=== PATIENT | female | born 1960 | race Caucasian/White ===

== ENCOUNTER → 2016-10-27 | Outpatient (CLI) | payer BC ==
[~2016-10-27] MED LIST: HYDR-5688 PO; METF-384 PO; NAPR-1169 PO
== END | disposition home or self-care (01) ==
LOC: C.MAMM 15:16
PROVIDERS: ATTEND Internal Medicine Endocrinology, Diabetes & Metabolism
DX: E11.9 Type 2 diabetes mellitus without complications (principal); R29.890 Loss of height; T14.8 Other injury of unspecified body region; X58.XXXA Exposure to other specified factors, initial encounter; Z78.0 Asymptomatic menopausal state; Z87.891 Personal history of nicotine dependence

== ENCOUNTER → 2016-11-01 | Outpatient (CLI) | payer BC ==
[2016-11-01 11:27] LABS: CHOLESTEROL/HDL RATIO 3.2; THYROID STIMULATING HORMONE 2.04 uIu/ml (0.300-4.500)
--- NOTE | 2016-11-06 06:41 | CODING QUERY MEDICAL NECESSITY ---
SUPPORTING DIAGNOSIS NEEDED A supporting diagnosis is required for the test/procedure performed on this patient in order for us to be reimbursed by the patient's insurance. Please provide a supporting diagnosis for the following test/procedure listed below next to the test name along with your signature. *If there is no additional diagnosis for this patient that would support the following test/procedure please document that below next to the test/procedure. Test(s)/Procedure(s) that require a supporting diagnosis: * VITAMIN D, 25- HYDROXY DIAGNOSIS: Provider Signature: Date: Thank you Danielle Drake [employer] Once completed, please kindly fax back to [phone] For questions please call [phone]
== END | disposition home or self-care (01) ==
LOC: C.LAB 09:03
PROVIDERS: ATTEND Internal Medicine Endocrinology, Diabetes & Metabolism
DX: E11.9 Type 2 diabetes mellitus without complications (principal); T14.8 Other injury of unspecified body region; X58.XXXA Exposure to other specified factors, initial encounter; E55.9 Vitamin D deficiency, unspecified

== ENCOUNTER 2021-08-11 10:54 | Inpatient (IN) ==
[2021-08-11] MEDS ORDERED: MoRPHine SULFATE 4 MG/ML 1 ML CARP\\VIAL IV PRN (11:15)
[2021-08-11] MEDS ORDERED: SODIUM CHLORIDE 0.9% 1000ML 1,000 ML IV STA (11:15)
[2021-08-11] MEDS ORDERED: ONDANSETRON INJ 2 MG/ML 2 ML VIAL IV STA ×2 (11:15→14:11)
--- NOTE | 2021-08-11 11:23 | Emergency Department Note ---
Impression & Plan Large bowel obstruction, Abdominal pain, Vomiting ED Provider Note NAME: MIESHA ARRINGTON AGE: 61 SEX: F : 1960 ARRIVES VIA: Walk-In INFORMANT: Patient, ED PROVIDER(S): Bj Vale DO CHIEF COMPLAINT: Nausea vomiting HPI: The patient is a 61-year-old female who presented to emergency department for evaluation of abdominal pain nausea vomiting and loose bowel movements. The patient states she has noticed epigastric pain as well as reflux over the course the last 24 hours. This morning she started noticing lower abdominal pain as well as nausea vomiting. She has a history of cholecystectomy as well as appendectomy. She is never had a history of bowel obstruction. She notices no lower GI bleeding. She notices no black stools. She notices no hematemesis. She denies having any chest pain at this time. She states she felt very cold and diaphoretic when the episode occurred. She states she continues to have very severe nausea. Symptoms were worsened with trying to eat or drink. ROS: See above HPI for pertinent positives & negatives. A total of 10 systems reviewed and were otherwise negative. PAST MEDICAL HISTORY: See Below PAST SURGICAL HISTORY: See Below FAMILY HISTORY: See Below SOCIAL HISTORY: See Below HOME MEDICATIONS: See Below ALLERGIES: See Below VITALS: See Below PHYSICAL EXAMINATION: GENERAL: Patient is awake and alert. The patient is somewhat anxious appearing. EYES: The conjunctivae are clear. The pupils are round and reactive. EARS, NOSE, MOUTH AND THROAT: The nose is without any evidence of any deformity. NECK: The neck is nontender and supple. RESPIRATORY: Normal respiratory effort is noted there is no evidence of wheezing rhonchi or rales CARDIOVASCULAR: Regular rate and rhythm noted there no murmurs rubs or gallops normal S1 normal S2. GASTROINTESTINAL: Abdomen is mildly distended. There is diffuse tenderness to palpation especially in the lower abdomen. There is no guarding rigidity. MUSCULOSKELETAL/EXTREMITIES: There is no evidence of gross deformity full range of motion is noted in the hips and shoulders. SKIN: There is no obvious evidence of any rash. There are no petechiae, pallor or cyanosis noted. NEUROLOGIC: Patient is awake alert and oriented x3 strength is symmetric patellar reflexes are 2+ bilaterally MEDICAL DECISION MAKING: The patient is a 61-year-old female who presented to the emergency department for an evaluation of lower abdominal pain and vomiting. The patient did have significant abdominal tenderness on physical exam. She also had very intractable nausea and vomiting initially. She was treated with multiple doses of antiemetics. Ultimately she had an NG tube placed which significantly improved her symptoms. I discussed the patient's laboratory and radiographic studies with her. I also discussed her case with the on-call [facility] hospitalist as well as the on-call radiation therapy technician. At this time the patient may require further work-up such as colonoscopy. She does not appear to have a closed loop obstruction on CT. She was treated with IV antibiotics and IV fluids as well. Triage Nursing notes reviewed. Prior medical records reviewed Vital Signs: reviewed and remarkable for hypertension and tachycardia. Differential diagnosis: Gastroenteritis, food borne illness, infections, appendicitis, diverticulitis, inflammatory bowel disease, obstruction, GI bleed, biliary pathology, volvulus, as well as other pathologies. ER treatment provided: See below Diagnostics interpreted by me: ECG: EKG was obtained in the emergency department. My interpretation is normal sinus rhythm at 87 bpm. There is no ectopy. There is no acute ST segment abnormalities noted. This was compared to a tracing from April 012020. No changes were noted. Cardiac Monitoring: An order was placed for continuous cardiac monitoring. The monitor shows a rate of 105 bpm with sinus tachycardia. Laboratory studies: As stated above and show below. Imaging studies: See below Consultation(s): I discussed this case with Dr. Duron [facility] He will evaluate the patient in the emergency department. I discussed this case with Dr. Flood who is on for gastroenterology. He does recommend that we insert an NG tube and continue to monitor the patient. She would likely require colonoscopy in the near future. He also recommends consultation with general surgery. Past Med/Surg History Medical History Acid reflux Chronic back pain Depression DM type 2 (diabetes mellitus, type 2) IDDM History of hypertension PONV (postoperative nausea and vomiting) Slow to wake up after anesthesia Thyroid nodule Surgical History History of arthroscopy of left knee History of carpal tunnel syndrome History of colonoscopy History of dilatation and curettage History of knee replacement Rt History of removal of cyst History of tubal ligation Status post rotator cuff repair Family History Aunt Breast cancer Father Colorectal cancer patient thinks that the cancer may have been small bowel in location? 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 Beliefs That Will Affect Care: None marital status: Current Living Situation: Spouse and Family current occupational status: unemployed Feels Safe at Home: Yes Childhood Exposure to Second-Hand Smoke: Yes caffeine: No Dental Care, Regularly: No Physical Activity Frequency: Does not Exercise Seatbelt Use: always Sunscreen Use: Yes Allergies Allergies Allergy/AdvReac Type Severity Reaction Status Date / Time No Known Allergies Allergy Unknown Verified 08/11/21 13:42 Home Meds Home Medications Medication Instructions Recorded Confirmed aspirin 81 mg chewable tablet 1 tab PO HS tab 05/09/19 08/11/21 atorvastatin 10 mg tablet 10 mg PO HS 08/11/21 08/11/21 cholecalciferol (vitamin D3) 25 25 mcg PO QAM 08/11/21 08/11/21 mcg (1,000 unit) chewable tablet (Vitamin D3) hydrochlorothiazide 25 mg tablet 25 mg PO QAM 08/11/21 08/11/21 insulin lispro 100 unit/mL See Rx Instructions .ROUTE .COMPLEX 08/11/21 08/11/21 subcutaneous pen losartan 25 mg tablet 25 mg PO QAM 08/11/21 08/11/21 pantoprazole 40 mg tablet,delayed 40 mg PO QAM 08/11/21 08/11/21 release (Protonix) Previous Rx's Medication Instructions Recorded lancets 33 gauge (OneTouch Delica #100 ea 07/06/19 Lancets) blood sugar diagnostic (OneTouch #100 ea 04/09/21 Ultra Blue Test Strip) blood-glucose meter (OneTouch #1 ea 04/09/21 Ultra2 Meter) lancets 30 gauge (OneTouch Delica #100 ea 04/09/21 Plus Lancet) pen needle, diabetic 31 gauge x #100 ea 07/01/21 5/16" (BD Ultra-Fine Short Pen Needle) dulaglutide 0.75 mg/0.5 mL 0.75 mg SUBCUT WK #2 ml 07/19/21 subcutaneous pen injector insulin glargine 100 unit/mL (3 See Rx Instructions SUBCUT QPM #15 07/19/21 mL) subcutaneous pen ml Results & Data (ED) Vital Signs Vital Signs - 24 hr 08/11/21 10:58 08/11/21 12:43 08/11/21 14:39 Temperature 36.4 C L Temperature Source Oral Pulse Rate 91 H Pulse Rate [Left Finger] 88 97 H Pulse Rhythm [Left Finger] Respiratory Rate 18 14 17 Respiratory Effort / Characteristics Respiratory Depth Blood Pressure 174/90 H Blood Pressure [Left Arm] 187/96 H 163/84 H Blood Pressure Mean 118 Blood Pressure Mean [Left Arm] 126 110 Blood Pressure Position [Left Arm] Sitting Sitting Pulse Oximetry 100 98 97 Oxygen Delivery Method Room Air Sepsis Recent Fever Within 48 Hours No Sepsis New/Unexplained Change in Mental Status No Sepsis Action Taken by Nursing No Action Required 08/11/21 16:00 08/11/21 17:28 Temperature Temperature Source Pulse Rate Pulse Rate [Left Finger] 105 H Pulse Rhythm [Left Finger] Regular Respiratory Rate 16 Respiratory Effort / Characteristics Non-Labored Respiratory Depth Normal Blood Pressure Blood Pressure [Left Arm] 168/87 H Blood Pressure Mean Blood Pressure Mean [Left Arm] 114 Blood Pressure Position [Left Arm] Pulse Oximetry 94 96 Oxygen Delivery Method Room Air Room Air Sepsis Recent Fever Within 48 Hours Sepsis New/Unexplained Change in Mental Status Sepsis Action Taken by Longterm Medications Current Medication List: was personally reviewed by me Laboratory Data Attestation: I reviewed the patient's lab results. Result diagrams: 08/11/21 11:40 08/11/21 12:24 Lab Results 08/11/21 08/11/21 08/11/21 Range/Units 11:40 11:40 11:40 WBC 15.08 H (4.8-10.8) K/uL RBC 4.76 (4.2-5.4) M/uL Hgb 11.8 L (12.0-16.0) g/dL Hct 37.7 (37-47) % MCV 79.2 L (80-100) fL MCH 24.8 L (25-34) pg MCHC 31.3 L (32-36) g/dL RDW Std Deviation 41.0 (36.4-46.3) fL RDW Coeff of Alison 14.3 (11.5-14.5) % Plt Count 316 (130-400) K/uL MPV 9.0 (7.4-10.4) fL Immature Gran % (Auto) 0.3 % Neut % (Auto) 90.8 % Lymph % (Auto) 5.5 % Miner % (Auto) 3.2 % Eos % (Auto) 0.1 % Baso % (Auto) 0.1 % Neut # (Auto) 13.69 H (1.4-6.5) K/uL Lymph # (Auto) 0.83 L (1.2-3.4) K/uL Miner # (Auto) 0.48 (0.11-0.59) K/uL Eos # (Auto) 0.01 (0-0.5) K/uL Baso # (Auto) 0.02 (0-0.2) K/uL Immature Gran # (Auto) 0.05 H (0.00-0.02) K/uL PT Cancelled INR Cancelled APTT Cancelled PTT Ratio Cancelled VBG pH (7.36-7.41) VBG pCO2 (38-50) mmHg VBG pO2 mmHg VBG HCO3 mmol/L VBG O2 Saturation % VBG Base Excess mEq/L Barometric Pressure mm/Hg Sodium 135 L (136-145) mmol/L Potassium (3.5-5.1) mmol/L Chloride 102 (98-107) mmol/L Carbon Dioxide 28 (21-32) mmol/L Anion Gap 5.0 (3-11) BUN 12 (7-18) mg/dl Creatinine 0.66 (0.6-1.2) mg/dl Est Cr Clr Drug Dosing 88.6 ml/min Est GFR ( Amer) 111.3 ml/min Est GFR (Non-Af Amer) 96.0 ml/min BUN/Creatinine Ratio 18.0 (10-20) Glucose 286 H (70-99) mg/dl POC Glucose (70-99) mg/dl Lactate (0.4-2.0) mmol/L Calcium 9.2 (8.5-10.1) mg/dl Magnesium (1.8-2.4) mg/dl Total Bilirubin 0.9 (0.2-1) mg/dl AST (15-37) U/L ALT 23 (12-78) U/L Alkaline Phosphatase 93 (45-117) U/L Troponin I < 0.015 (0-0.045) ng/ml Total Protein 7.7 (6.4-8.2) gm/dl Albumin 3.5 (3.4-5.0) gm/dl Globulin 4.2 H (2.5-4.0) gm/dl Albumin/Globulin Ratio 0.8 L (0.9-2) Lipase 91 (73-393) U/L Urine Color Urine Appearance (Clear) Urine pH (4.5-7.5) Ur Specific [place] (1.000-1.030) Urine Protein (Negative) Urine Glucose (UA) (Negative) Urine Ketones (Negative) Urine Blood (Negative) Urine Nitrite (Negative) Urine Bilirubin (Negative) Urine Urobilinogen (Negative) Ur Leukocyte Esterase (Negative) Urine WBC (Auto) (0-5) /hpf Urine RBC (Auto) (0-4) /hpf U Hyaline Cast (Auto) (0-5) /lpf U Epithel Cells (Auto) (0-5) /lpf Urine Bacteria (Auto) (Negative) COVID-19 Eval Order SARS-CoV-2 (PCR) (Negative) 08/11/21 08/11/21 08/11/21 Range/Units 11:47 11:47 12:24 WBC (4.8-10.8) K/uL RBC (4.2-5.4) M/uL Hgb (12.0-16.0) g/dL Hct (37-47) % MCV (80-100) fL MCH (25-34) pg MCHC (32-36) g/dL RDW Std Deviation (36.4-46.3) fL RDW Coeff of Alison (11.5-14.5) % Plt Count (130-400) K/uL MPV (7.4-10.4) fL Immature Gran % (Auto) % Neut % (Auto) % Lymph % (Auto) % Miner % (Auto) % Eos % (Auto) % Baso % (Auto) % Neut # (Auto) (1.4-6.5) K/uL Lymph # (Auto) (1.2-3.4) K/uL Miner # (Auto) (0.11-0.59) K/uL Eos # (Auto) (0-0.5) K/uL Baso # (Auto) (0-0.2) K/uL Immature Gran # (Auto) (0.00-0.02) K/uL PT 10.1 INR 1.0 APTT 23.9 PTT Ratio 0.9 VBG pH (7.36-7.41) VBG pCO2 (38-50) mmHg VBG pO2 mmHg VBG HCO3 mmol/L VBG O2 Saturation % VBG Base Excess mEq/L Barometric Pressure mm/Hg Sodium (136-145) mmol/L Potassium (3.5-5.1) mmol/L Chloride (98-107) mmol/L Carbon Dioxide (21-32) mmol/L Anion Gap (3-11) BUN (7-18) mg/dl Creatinine (0.6-1.2) mg/dl Est Cr Clr Drug Dosing ml/min Est GFR ( Amer) ml/min Est GFR (Non-Af Amer) ml/min BUN/Creatinine Ratio (10-20) Glucose (70-99) mg/dl POC Glucose (70-99) mg/dl Lactate (0.4-2.0) mmol/L Calcium (8.5-10.1) mg/dl Magnesium (1.8-2.4) mg/dl Total Bilirubin (0.2-1) mg/dl AST (15-37) U/L ALT (12-78) U/L Alkaline Phosphatase (45-117) U/L Troponin I (0-0.045) ng/ml Total Protein (6.4-8.2) gm/dl Albumin (3.4-5.0) gm/dl Globulin (2.5-4.0) gm/dl Albumin/Globulin Ratio (0.9-2) Lipase (73-393) U/L Urine Color Urine Appearance (Clear) Urine pH (4.5-7.5) Ur Specific [place] (1.000-1.030) Urine Protein (Negative) Urine Glucose (UA) (Negative) Urine Ketones (Negative) Urine Blood (Negative) Urine Nitrite (Negative) Urine Bilirubin (Negative) Urine Urobilinogen (Negative) Ur Leukocyte Esterase (Negative) Urine WBC (Auto) (0-5) /hpf Urine RBC (Auto) (0-4) /hpf U Hyaline Cast (Auto) (0-5) /lpf U Epithel Cells (Auto) (0-5) /lpf Urine Bacteria (Auto) (Negative) COVID-19 Eval Order Covid19 at [facility] SARS-CoV-2 (PCR) NEGATIVE (Negative) 08/11/21 08/11/21 08/11/21 Range/Units 12:24 16:04 16:51 WBC (4.8-10.8) K/uL RBC (4.2-5.4) M/uL Hgb (12.0-16.0) g/dL Hct (37-47) % MCV (80-100) fL MCH (25-34) pg MCHC (32-36) g/dL RDW Std Deviation (36.4-46.3) fL RDW Coeff of Alison (11.5-14.5) % Plt Count (130-400) K/uL MPV (7.4-10.4) fL Immature Gran % (Auto) % Neut % (Auto) % Lymph % (Auto) % Miner % (Auto) % Eos % (Auto) % Baso % (Auto) % Neut # (Auto) (1.4-6.5) K/uL Lymph # (Auto) (1.2-3.4) K/uL Miner # (Auto) (0.11-0.59) K/uL Eos # (Auto) (0-0.5) K/uL Baso # (Auto) (0-0.2) K/uL Immature Gran # (Auto) (0.00-0.02) K/uL PT INR APTT PTT Ratio VBG pH (7.36-7.41) VBG pCO2 (38-50) mmHg VBG pO2 mmHg VBG HCO3 mmol/L VBG O2 Saturation % VBG Base Excess mEq/L Barometric Pressure mm/Hg Sodium (136-145) mmol/L Potassium 3.8 (3.5-5.1) mmol/L Chloride (98-107) mmol/L Carbon Dioxide (21-32) mmol/L Anion Gap (3-11) BUN (7-18) mg/dl Creatinine (0.6-1.2) mg/dl Est Cr Clr Drug Dosing ml/min Est GFR ( Amer) ml/min Est GFR (Non-Af Amer) ml/min BUN/Creatinine Ratio (10-20) Glucose (70-99) mg/dl POC Glucose 258 H (70-99) mg/dl Lactate (0.4-2.0) mmol/L Calcium (8.5-10.1) mg/dl Magnesium 2.2 (1.8-2.4) mg/dl Total Bilirubin (0.2-1) mg/dl AST 9 L (15-37) U/L ALT (12-78) U/L Alkaline Phosphatase (45-117) U/L Troponin I (0-0.045) ng/ml Total Protein (6.4-8.2) gm/dl Albumin (3.4-5.0) gm/dl Globulin (2.5-4.0) gm/dl Albumin/Globulin Ratio (0.9-2) Lipase (73-393) U/L Urine Color Yellow Urine Appearance Clear (Clear) Urine pH 5.0 (4.5-7.5) Ur Specific [place] 1.029 (1.000-1.030) Urine Protein Trace H (Negative) Urine Glucose (UA) 3+ H (Negative) Urine Ketones 2+ H (Negative) Urine Blood Negative (Negative) Urine Nitrite Negative (Negative) Urine Bilirubin Negative (Negative) Urine Urobilinogen Negative (Negative) Ur Leukocyte Esterase Negative (Negative) Urine WBC (Auto) 1-5 (0-5) /hpf Urine RBC (Auto) 0-4 (0-4) /hpf U Hyaline Cast (Auto) 1-5 (0-5) /lpf U Epithel Cells (Auto) >30 H (0-5) /lpf Urine Bacteria (Auto) Negative (Negative) COVID-19 Eval Order SARS-CoV-2 (PCR) (Negative) 08/11/21 08/11/21 08/11/21 Range/Units 16:52 17:07 17:07 WBC (4.8-10.8) K/uL RBC (4.2-5.4) M/uL Hgb (12.0-16.0) g/dL Hct (37-47) % MCV (80-100) fL MCH (25-34) pg MCHC (32-36) g/dL RDW Std Deviation (36.4-46.3) fL RDW Coeff of Alison (11.5-14.5) % Plt Count (130-400) K/uL MPV (7.4-10.4) fL Immature Gran % (Auto) % Neut % (Auto) % Lymph % (Auto) % Miner % (Auto) % Eos % (Auto) % Baso % (Auto) % Neut # (Auto) (1.4-6.5) K/uL Lymph # (Auto) (1.2-3.4) K/uL Miner # (Auto) (0.11-0.59) K/uL Eos # (Auto) (0-0.5) K/uL Baso # (Auto) (0-0.2) K/uL Immature Gran # (Auto) (0.00-0.02) K/uL PT INR APTT PTT Ratio VBG pH 7.36 (7.36-7.41) VBG pCO2 47 (38-50) mmHg VBG pO2 31 mmHg VBG HCO3 26 mmol/L VBG O2 Saturation < 60.0 % VBG Base Excess -0.2 mEq/L Barometric Pressure 735.2 mm/Hg Sodium (136-145) mmol/L Potassium (3.5-5.1) mmol/L Chloride (98-107) mmol/L Carbon Dioxide (21-32) mmol/L Anion Gap (3-11) BUN (7-18) mg/dl Creatinine (0.6-1.2) mg/dl Est Cr Clr Drug Dosing ml/min Est GFR ( Amer) ml/min Est GFR (Non-Af Amer) ml/min BUN/Creatinine Ratio (10-20) Glucose (70-99) mg/dl POC Glucose 253 H (70-99) mg/dl Lactate 2.2 H* (0.4-2.0) mmol/L Calcium (8.5-10.1) mg/dl Magnesium (1.8-2.4) mg/dl Total Bilirubin (0.2-1) mg/dl AST (15-37) U/L ALT (12-78) U/L Alkaline Phosphatase (45-117) U/L Troponin I (0-0.045) ng/ml Total Protein (6.4-8.2) gm/dl Albumin (3.4-5.0) gm/dl Globulin (2.5-4.0) gm/dl Albumin/Globulin Ratio (0.9-2) Lipase (73-393) U/L Urine Color Urine Appearance (Clear) Urine pH (4.5-7.5) Ur Specific [place] (1.000-1.030) Urine Protein (Negative) Urine Glucose (UA) (Negative) Urine Ketones (Negative) Urine Blood (Negative) Urine Nitrite (Negative) Urine Bilirubin (Negative) Urine Urobilinogen (Negative) Ur Leukocyte Esterase (Negative) Urine WBC (Auto) (0-5) /hpf Urine RBC (Auto) (0-4) /hpf U Hyaline Cast (Auto) (0-5) /lpf U Epithel Cells (Auto) (0-5) /lpf Urine Bacteria (Auto) (Negative) COVID-19 Eval Order SARS-CoV-2 (PCR) (Negative) Administered Medications Morphine Sulfate (Morphine Sulfate 4 Mg/Ml 1 Ml Carp\\Vial) 4 mg IV Q15M PRN PRN Reason: Pain Stop: 08/25/21 11:14 Last Admin: 08/11/21 11:44 Dose: 4 mg Documented by: [id number] Discontinued Medications Sodium Chloride (Nss 1000ml) 1,000 mls @ 999 mls/hr IV .Q1H1M STA Stop: 08/11/21 12:15 Last Infusion: 08/11/21 13:13 Dose: 0 mls/hr Documented by: [id number] Admin: 08/11/21 11:43 Dose: 999 mls/hr Documented by: [id number] Promethazine HCl (Phenergan) 12.5 mg in 50.5 mls @ 202 mls/hr IV NOW STA Stop: 08/11/21 12:52 Last Infusion: 08/11/21 13:13 Dose: 0 mls/hr Documented by: [id number] Admin: 08/11/21 12:42 Dose: 202 mls/hr Documented by: [id number] Promethazine HCl (Phenergan) 12.5 mg in 50.5 mls @ 202 mls/hr IV NOW STA Stop: 08/11/21 14:25 Last Infusion: 08/11/21 17:00 Dose: 0 mls/hr Documented by: [id number] Admin: 08/11/21 14:39 Dose: 202 mls/hr Documented by: [id number] Piperacillin Sod/Tazobactam Sod (Zosyn) 4.5 gm in 120 mls @ 240 mls/hr IV NOW ONE Stop: 08/11/21 16:07 Last Infusion: 08/11/21 17:02 Dose: 0 mls/hr Documented by: [id number] Admin: 08/11/21 16:31 Dose: 240 mls/hr Documented by: [id number] Ioversol (Optiray 320 100ml) 95 ml IV ONCE ONE Stop: 08/11/21 14:28 Last Admin: 08/11/21 14:27 Dose: 95 ml Documented by: [id number] Ondansetron HCl (Ondansetron Inj 2 Mg/Ml 2 Ml Vial) 4 mg IV NOW STA Stop: 08/11/21 11:16 Last Admin: 08/11/21 11:44 Dose: 4 mg Documented by: [id number] Ondansetron HCl (Ondansetron Inj 2 Mg/Ml 2 Ml Vial) 4 mg IV NOW STA Stop: 08/11/21 14:12 Last Admin: 08/11/21 14:13 Dose: 4 mg Documented by: [id number] Ondansetron HCl (Ondansetron Inj 2 Mg/Ml 2 Ml Vial) Confirm Administered Dose 4 mg .ROUTE .STK-MED ONE Stop: 08/11/21 14:12 Last Admin: 08/11/21 14:13 Dose: Not Given Documented by: [id number] Imaging Data Radiologist's Impression: Abdomen/Pelvis CT 08/11/21 11:15 CT OF THE ABDOMEN AND PELVIS WITH CONTRAST CLINICAL HISTORY: Lower abdominal pain. COMPARISON STUDY: Right upper quadrant ultrasound August 25, 2015. CT of the abdomen and pelvis July 22, 2014. TECHNIQUE: Following IV administration of 95 mL of Optiray, axial images of the abdomen and pelvis were obtained from the lung bases to the proximal femurs. Images were reviewed in the axial, sagittal, and coronal planes. IV contrast was administered without complication. Automated exposure control was utilized for the study. A dose lowering technique was utilized adhering to the principles of ALARA. CT DOSE: 1149.35 mGy.cm FINDINGS: A few small subpleural right lower lobe nodules are noted. These were present on CT of July 22, 2014 and are likely benign. No pneumatosis, free air or portal venous gas is present. There is no biliary ductal dilatation status post cholecystectomy. Borderline splenomegaly is noted. Two left adrenal nodules are unchanged since CT of July 22, 2014. These are likely benign. There is no pancreatic ductal dilatation. No peripancreatic infiltration is present. There is no hydronephrosis. Subcentimeter lesion within the upper pole right kidney is too small to characterize but favors a cyst. No abdominal or pelvic lymphadenopathy is present. There is colonic diverticulosis without evidence for acute diverticulitis. Note is made of a large amount of stool within the cecum which is moderately distended. There is adjacent pericolonic stranding and a small amount of fluid. Colonic change in caliber is noted to the level of the distal ascending colon. The remainder of the colon is relatively de compressed. The small bowel is not distended however there is stool within the terminal ileum. Although no definite mass is noted, there is possible wall thickening of the distal ascending colon. Adjacent soft tissues are unremarkable. Major vasculature is patent. No suspicious lesions are identified within the visualized skeletal structures. IMPRESSION: 1. Large amount of stool within the cecum which is moderately distended. Associated pericolonic stranding and a small amount of fluid. The findings may reflect stercoral colitis and a colonic obstruction at the level of the distal ascending colon may be present given caliber change. Although not definitively identified, a colonic lesion cannot be excluded. GI consultation for consideration for colonoscopy to evaluate for occult obstructing lesion is recommended. No associated lymphadenopathy. No hepatic lesions. 2. Two left adrenal nodules which are unchanged and CT of July 22, 2014. These are benign. 3. Colonic diverticulosis without evidence for acute diverticulitis. ACT 112: Negative or not required by law. Electronically signed by: Jarrell Mcbride M.D. 08/11/2021 2:51 PM Chest X-Ray 08/11/21 11:16 XR chest 1V portable CLINICAL HISTORY: VOMITING COMPARISON STUDY: Chest radiograph April 01, 2021. FINDINGS: Lung volumes are normal. Lungs are clear. There is no pneumothorax or pleural effusion. Cardiomegaly is unchanged. Mediastinal contours are normal. There is no evidence for pulmonary edema. IMPRESSION: No acute cardiopulmonary findings. ACT 112: Negative or not required by law. Electronically signed by: Jarrell Mcbride M.D. 08/11/2021 11:59 AM Chest X-Ray 08/11/21 16:27 XR chest 1V portable CLINICAL HISTORY: ng tube placement COMPARISON STUDY: Chest radiograph performed earlier today. FINDINGS: Cardiomegaly is incidentally noted. Tip of nasogastric tube is within the gastric antrum. Cholecystectomy clips are present. Contrast within the collecting systems is from recent contrast-enhanced CT. IMPRESSION: Tip of nasogastric tube within the gastric antrum. ACT 112: Negative or not required by law. Electronically signed by: Jarrell Mcbride M.D. 08/11/2021 4:55 PM Chest X-Ray 08/11/21 16:27 XR chest 1V portable CLINICAL HISTORY: ng tube placement after adjust COMPARISON STUDY: Chest radiograph August 11, 2021 of 4:16 PM. FINDINGS: Tip of nasogastric tube is within the distal body of the stomach. Cardiomegaly is noted. There are cholecystectomy clips. Contrast within the collecting systems is from recent contrast-enhanced CT. IMPRESSION: Tip of nasogastric tube within the distal body of the stomach. ACT 112: Negative or not required by law. Electronically signed by: Jarrell Mcbride M.D. 08/11/2021 4:56 PM Discharge Plan Visit Data Chief Complaint: Vomiting Stated Complaint: VOMITING ED Provider: Bj Vale Discharge Problem: Large bowel obstruction, Abdominal pain, Vomiting Patient Disposition: Being Evaluated by Hospitalist Forms Stand Alone Forms: [facility] Prescriptions Prescriptions: No Action (DME) lancets [OneTouch Delica Lancets] 33 gauge misc See Dose Instructions .ROUTE .MEDSUPPLY Qty: 100 RF: 3 (DME) pen needle, diabetic [BD Ultra-Fine Short Pen Needle] 31 gauge x 5/16" needle See Dose Instructions .ROUTE .MEDSUPPLY Qty: 100 RF: 1 dulaglutide 0.75 mg/0.5 mL pen injector 0.75 mg subcut WK Qty: 2 RF: 5 insulin glargine 100 unit/mL (3 mL) insulin pen See Rx Instructions subcut QPM Qty: 15 RF: 12 (DME) lancets [OneTouch Delica Plus Lancet] 30 gauge misc See Rx Instructions .MEDSUPPLY Qty: 100 RF: 5 (DME) OneTouch Ultra Blue Test Strip Strip See Rx Instructions .MEDSUPPLY Qty: 100 RF: 5 (DME) blood-glucose meter [OneTouch Ultra2 Meter] [facility] See Rx Instructions .MEDSUPPLY Qty: 1 RF: 0 aspirin 81 mg tablet,chewable 1 tab PO HS RF: 0 cholecalciferol (vitamin D3) [Vitamin D3] 25 mcg (1,000 unit) Tablet,Chewable 25 mcg PO QAM RF: 0 atorvastatin 10 mg tablet 10 mg PO HS RF: 0 pantoprazole [Protonix] 40 mg tablet,delayed release (DR/EC) 40 mg PO QAM RF: 0 losartan 25 mg tablet 25 mg PO QAM RF: 0 hydrochlorothiazide 25 mg tablet 25 mg PO QAM RF: 0 insulin lispro 100 unit/mL insulin pen See Rx Instructions .ROUTE .COMPLEX RF: 0 Referrals Referrals: Basim Quiros III, CRNP [Primary Care Provider] -
[2021-08-11 11:52] LABS: Basophils # (auto) 0.02 K/uL (0-0.2); Basophils % (auto) 0.1 %; Eosinophils # (auto) 0.01 K/uL (0-0.5); Eosinophils % (auto) 0.1 %; Hematocrit (blood only) 37.7 % (37-47); Hemoglobin 11.8 g/dL (12.0-16.0); Immature Granulocytes # (auto) 0.05 K/uL (0.00-0.02); Immature Granulocytes % (auto) 0.3 %; Lymphocytes # (auto) 0.83 K/uL (1.2-3.4); Lymphocytes % (auto) 5.5 %; Mean Corpuscular Hemoglobin 24.8 pg (25-34); Mean Corpuscular Hgb Conc 31.3 g/dL (32-36); Mean Corpuscular Volume 79.2 fL (80-100); Monocytes # (auto) 0.48 K/uL (0.11-0.59); Monocytes % (auto) 3.2 %; Neutrophils # (auto) 13.69 K/uL (1.4-6.5); Neutrophils % (auto) 90.8 %; Platelet Count 316 K/uL (130-400); RDW Coefficient of Variation 14.3 % (11.5-14.5); Red Blood Count 4.76 M/uL (4.2-5.4); White Blood Count 15.08 K/uL (4.8-10.8)
--- NOTE | 2021-08-11 12:01 | XRay Report ---
XR chest 1V portable CLINICAL HISTORY: VOMITING COMPARISON STUDY: Chest radiograph April 01, 2021. FINDINGS: Lung volumes are normal. Lungs are clear. There is no pneumothorax or pleural effusion. Car diomegaly is unchanged. Mediastinal contours are normal. There is no evidence for pulmonary edema. IMPRESSION: No acute cardiopulmonary findings. ACT 112: Negative or not required by law. Electronically signed by: Jarrell Mcbride M.D. 08/11/2021 11:59 AM
[2021-08-11 12:13] LABS: Albumin Level 3.5 gm/dl (3.4-5.0); Blood Urea Nitrogen 12 mg/dl (7-18); Calcium 9.2 mg/dl (8.5-10.1); Carbon Dioxide 28 mmol/L (21-32); Chloride 102 mmol/L (98-107); Creatinine Clr Calc Pharmacy 88.6 ml/min; Est GFR (African American) 111.3 ml/min; Glucose 286 mg/dl (70-99); Lipase 91 U/L (73-393); Sodium 135 mmol/L (136-145)
[2021-08-11 12:25] LABS: Alanine Aminotransferase 23 U/L (12-78); Albumin Globulin Ratio 0.8 (0.9-2); Alkaline Phosphatase 93 U/L (45-117); Bilirubin,Total 0.9 mg/dl (0.2-1); Globulin 4.2 gm/dl (2.5-4.0); Total Protein 7.7 gm/dl (6.4-8.2); Troponin I < 0.015 ng/ml (0-0.045)
[2021-08-11] MEDS ORDERED: PROMETHAZINE 12.5 MG/50.5 ML BAG IV STA ×2 (12:38→14:11)
[2021-08-11 12:56] LABS: Potassium 3.8 mmol/L (3.5-5.1)
[2021-08-11 13:00] LABS: Partial Thromboplastin Ratio 0.9; Partial Thromboplastin Time 23.9 Seconds (21.0-31.0); Prothrombin Time 10.1 Seconds (9.0-12.0)
[2021-08-11] MEDS ORDERED: ONDANSETRON INJ 2 MG/ML 2 ML VIAL ONE (14:11)
[2021-08-11] MEDS ORDERED: OPTIRAY 320 100ml IV ONE (14:27)
--- NOTE | 2021-08-11 14:53 | CT Scan Report ---
CT OF THE ABDOMEN AND PELVIS WITH CONTRAST CLINICAL HISTORY: Lower abdominal pain. COMPARISON STUDY: Right upper quadrant ultrasound August 25, 2015. CT of the abdomen and pelvis Oc tober 2013. TECHNIQUE: Following IV administration of 95 mL of Optiray, axial images of the abdomen and pelvis we re obtained from the lung bases to the proximal femurs. Images were reviewed in the axial, sagittal, and coronal planes. IV contrast was administered without complication. Automated exposure control wa s utilized for the study. A dose lowering technique was utilized adhering to the principles of ALARA . CT DOSE: 1149.35 mGy.cm FINDINGS: A few small subpleural right lower lobe nodules are noted. These were present on CT of Julo 2013 and are likely benign. No pneumatosis, free air or portal venous gas is present. There i s no biliary ductal dilatation status post cholecystectomy. Borderline splenomegaly is noted. Two lef t adrenal nodules are unchanged since CT of July 22, 2014. These are likely benign. There is no pa ncreatic ductal dilatation. No peripancreatic infiltration is present. There is no hydronephrosis. Becerra bcentimeter lesion within the upper pole right kidney is too small to characterize but favors a cyst. No abdominal or pelvic lymphadenopathy is present. There is colonic diverticulosis without evidence for acute diverticulitis. Note is made of a large amount of stool within the cecum which is moderatel y distended. There is adjacent pericolonic stranding and a small amount of fluid. Colonic change in c aliber is noted to the level of the distal ascending colon. The remainder of the colon is relatively decompressed. The small bowel is not distended however there is stool within the terminal ileum. Alth ough no definite mass is noted, there is possible wall thickening of the distal ascending colon. Autumn cent soft tissues are unremarkable. Major vasculature is patent. No suspicious lesions are identified within the visualized skeletal structures. IMPRESSION: 1. Large amount of stool within the cecum which is moderately distended. Associated pericolonic stran ding and a small amount of fluid. The findings may reflect stercoral colitis and a colonic obstructio n at the level of the distal ascending colon may be present given caliber change. Although not defini tively identified, a colonic lesion cannot be excluded. GI consultation for consideration for colonos copy to evaluate for occult obstructing lesion is recommended. No associated lymphadenopathy. No hepa tic lesions. 2. Two left adrenal nodules which are unchanged and CT of July 22, 2014. These are benign. 3. Colonic diverticulosis without evidence for acute diverticulitis. ACT 112: Negative or not required by law. Electronically signed by: Jarrell Mcbride M.D. 08/11/2021 2:51 PM
[2021-08-11] MEDS ORDERED: PIPERACILLIN/TAZOBACTAM 4.5 GM/120 ML BAG IV ONE (15:38)
[2021-08-11] MEDS ORDERED: PIPERACILL/TAZOBAC CONSULT ACTIVE PRN (15:38)
[2021-08-11 15:58] LABS: Magnesium 2.2 mg/dl (1.8-2.4)
--- NOTE | 2021-08-11 16:06 | History & Physical Report ---
Date of Service August 11, 2021 Assessment & Plan (1) Colonic obstruction: Plan: Clinical picture and CT abd/pelvis c/w colonic obstruction. Transition point appears to be the ascending colon. NG tube has been placed; vomiting has stopped. Gen surg advising low continuous wall suction. NPO. IVF. General surgery consulted; GI consulted. KUB x-ray in am for interval change. The colonic obstruction could be 2nd colon cancer or other obstructing pathology (stricture, etc). Pt's father had colon cancer. Labs in am. Patient received IV abx in the ER. Further IV antibiotics not indicated at this time. (2) Disorder of cecum: Plan: Marked cecal dilatation on CT. 2nd to suspected colonic obstruction. KUB x-ray in am to reassess bowel pattern. Gen surg consultation. GI consultation. NG tube decompression. (3) Hypertension: Plan: HOLD PO meds. Start hydralazine 5mg IV Q8h. Adjust as needed; added other IV meds as needed. (4) DM2 (diabetes mellitus, type 2): Plan: total daily dose at home nearly 100 units. patient will be NPO. start lantus 10 units BID; adjust as needed. novolog - correction factor 30; adjust as needed. last a1c 8.4% in May. (5) Depression: Plan: not on meds for such. (6) DVT prophylaxis: Plan: lovenox 40mg daily (7) GERD (gastroesophageal reflux disease): Plan: IV PPI daily (8) Lethargy: Plan: during my assessment the patient was quite sleepy, likely due to anti-emetics. Checked VBG - no significant CO2 retention, although her CO2 is not normal. caution with narcotics and sedatives - she could have sleep-disordered breathing leading to chronic, mild CO 2 retention. lactate minimally elevated 2nd to prolific vomiting from #1. BSG - no hypoglycemia. if mental status worsens further - CT head. History of Present Illness Chief Complaint: abdominal pain with vomiting Primary Care Provider: Basim Quiros, III, [employer] 61yo female with T2DM and HTN presents with the acute onset of right-sided abdominal pain starting at 0330 this am. Has had severe nausea with recurrent emesis since that time. She cannot count how many times she has vomited -- it has been copious. During my assessment she began to vomit bile. The vomiting has persisted despite several doses of anti-emetics. Up until this am she has felt well of late with no issues with constipation, diarrhea or change in bowel habits. Denies melena or BRBPR. Last colonoscopy was in 2010 - minimal diverticular disease, polyp. Repeat advised in 5 years (2015) but she confirms she never had such. She reports that 2 months ago she fell in her yard walking to the shed and traumatized her abdomen. She has had intermittent abdominal discomfort since then but that pain was more in the left abdomen. In light of refractory vomiting NG tube was requested and placed by nursing staff. Allergies Allergy/AdvReac Type Severity Reaction Status Date / Time No Known Allergies Allergy Unknown Verified 08/11/21 13:42 Home Medications Medication Instructions Recorded Confirmed Type aspirin 81 mg chewable tablet 1 tab PO HS tab 05/09/19 08/11/21 History lancets 33 gauge (OneTouch Delica #100 ea 07/06/19 07/09/21 Rx Lancets) blood sugar diagnostic (OneTouch #100 ea 04/09/21 07/09/21 Rx Ultra Blue Test Strip) blood-glucose meter (OneTouch #1 ea 04/09/21 07/09/21 Rx Ultra2 Meter) lancets 30 gauge (OneTouch Delica #100 ea 04/09/21 07/09/21 Rx Plus Lancet) pen needle, diabetic 31 gauge x #100 ea 07/01/21 07/09/21 Rx 5/16" (BD Ultra-Fine Short Pen Needle) dulaglutide 0.75 mg/0.5 mL 0.75 mg SUBCUT WK #2 ml 07/19/21 08/11/21 Rx subcutaneous pen injector insulin glargine 100 unit/mL (3 See Rx Instructions SUBCUT QPM #15 07/19/21 1104/24 Rx mL) subcutaneous pen ml atorvastatin 10 mg tablet 10 mg PO HS 08/11/21 08/11/21 History cholecalciferol (vitamin D3) 25 25 mcg PO QAM 08/11/21 08/11/21 History mcg (1,000 unit) chewable tablet (Vitamin D3) hydrochlorothiazide 25 mg tablet 25 mg PO QAM 08/11/21 08/11/21 History insulin lispro 100 unit/mL See Rx Instructions .ROUTE .COMPLEX 08/11/21 08/11/21 History subcutaneous pen losartan 25 mg tablet 25 mg PO QAM 08/11/21 08/11/21 History pantoprazole 40 mg tablet,delayed 40 mg PO QAM 08/11/21 08/11/21 History release (Protonix) Past Med/Surg History Medical History Acid reflux Chronic back pain Depression DM type 2 (diabetes mellitus, type 2) IDDM History of hypertension PONV (postoperative nausea and vomiting) Slow to wake up after anesthesia Thyroid nodule Surgical History History of arthroscopy of left knee History of carpal tunnel syndrome History of colonoscopy History of dilatation and curettage History of knee replacement Rt History of removal of cyst History of tubal ligation Status post rotator cuff repair Family History Aunt Breast cancer Father Colorectal cancer patient thinks that the cancer may have been small bowel in location? Grandmother Ovarian cancer Other No family history of adverse response to anesthesia Denies family history of Prostate cancer Myocardial infarction Social History (Updated 08/11/21 @ 22:43 by Idris Duron) Smoking Status: Never smoker Second Hand Exposure: No; Hx Alcohol Use: Yes Alcohol type: beer Alcohol Intake Frequency: Monthly or Less Hx Substance Use: No Preferred Language: Maori Communication Ability: Effective Visual Impairment: No Limitations Hearing Ability: Normal Lining Layer Required: No Beliefs That Will Affect Care: None marital status: Current Living Situation: Spouse and Family Current Living Situation Comment: lives in [place] current occupational status: unemployed Feels Safe at Home: Yes Childhood Exposure to Second-Hand Smoke: Yes caffeine: No Dental Care, Regularly: No Physical Activity Frequency: Does not Exercise Seatbelt Use: always Sunscreen Use: Yes Review of Systems Review of Systems: Gen - no fevers; no weight loss; good appetite until today ENMT - occasional dysphagia but nothing daily/consistent; no recent sore throat/nasal congestion; has loss of taste/smell several weeks ago - none now; fully resolved; reports being fully vaccinated against COVID-19 CV - no chest pain Pulm - no dyspnea or cough GI - +abd pain, nausea, emesis; did have a stool in the ER - no dysuria Musculo - knee pain, right Skin - no rash Neuro - no headaches, no paresthesias Endo - reports BSGs have been "all over" with many readings >200 Psych - h/o depression but doing ok recently Heme - no bruising Physical Exam Physical Exam: Gen - active vomiting; looks very unwell; obese; sleepy Eyes - PERRL Mouth - MM dry Neck - no JVD Heart - tachy, s1 s2, no murmurs Lungs - CTA b/l Abd - distended, tender right abdomen, BS+ but very decreased, no HSM; rectal deferred Skin - mild pallor, no rash Musculo - no joint effusions Neuro - strength 5/5 x 4 exts Psych - oriented x 3, but sleepy (due to recent anti-emetics) Lymph - no cervical lymph nodes Results & Data Results & Data ([facility]) Vital Signs (Past 12 Hours) Vital Signs Temp Pulse Pulse Resp BP BP Pulse Ox 08/11/21 14:39 97 H 17 163/84 H 97 08/11/21 12:43 88 14 187/96 H 98 08/11/21 10:58 36.4 C L 91 H 18 174/90 H 100 Laboratory Results Laboratory Results - last 24 hr 08/11/21 08/11/21 08/11/21 11:40 11:40 11:40 WBC 15.08 H RBC 4.76 Hgb 11.8 L Hct 37.7 MCV 79.2 L MCH 24.8 L MCHC 31.3 L RDW Std Deviation 41.0 RDW Coeff of Alison 14.3 Plt Count 316 MPV 9.0 Immature Gran % (Auto) 0.3 Neut % (Auto) 90.8 Lymph % (Auto) 5.5 Monona % (Auto) 3.2 Eos % (Auto) 0.1 Baso % (Auto) 0.1 Neut # (Auto) 13.69 H Lymph # (Auto) 0.83 L Monona # (Auto) 0.48 Eos # (Auto) 0.01 Baso # (Auto) 0.02 Immature Gran # (Auto) 0.05 H PT Cancelled INR Cancelled APTT Cancelled PTT Ratio Cancelled Sodium 135 L Potassium Chloride 102 Carbon Dioxide 28 Anion Gap 5.0 BUN 12 Creatinine 0.66 Est Cr Clr Drug Dosing 88.6 Est GFR ( Amer) 111.3 Est GFR (Non-Af Amer) 96.0 BUN/Creatinine Ratio 18.0 Glucose 286 H Calcium 9.2 Magnesium Total Bilirubin 0.9 AST ALT 23 Alkaline Phosphatase 93 Troponin I < 0.015 Total Protein 7.7 Albumin 3.5 Globulin 4.2 H Albumin/Globulin Ratio 0.8 L Lipase 91 Urine Color Urine Appearance Urine pH Ur Specific [place] Urine Protein Urine Glucose (UA) Urine Ketones Urine Blood Urine Nitrite Urine Bilirubin Urine Urobilinogen Ur Leukocyte Esterase COVID-19 Eval Order SARS-CoV-2 (PCR) 08/11/21 08/11/21 08/11/21 11:47 11:47 12:24 WBC RBC Hgb Hct MCV MCH MCHC RDW Std Deviation RDW Coeff of Alison Plt Count MPV Immature Gran % (Auto) Neut % (Auto) Lymph % (Auto) Mon[place] % (Auto) Eos % (Auto) Baso % (Auto) Neut # (Auto) Lymph # (Auto) [place] # (Auto) Eos # (Auto) Baso # (Auto) Immature Gran # (Auto) PT 10.1 INR 1.0 APTT 23.9 PTT Ratio 0.9 Sodium Potassium Chloride Carbon Dioxide Anion Gap BUN Creatinine Est Cr Clr Drug Dosing Est GFR ( Amer) Est GFR (Non-Af Amer) BUN/Creatinine Ratio Glucose Calcium Magnesium Total Bilirubin AST ALT Alkaline Phosphatase Troponin I Total Protein Albumin Globulin Albumin/Globulin Ratio Lipase Urine Color Urine Appearance Urine pH Ur Specific [place] Urine Protein Urine Glucose (UA) Urine Ketones Urine Blood Urine Nitrite Urine Bilirubin Urine Urobilinogen Ur Leukocyte Esterase COVID-19 Eval Order Covid19 at [facility] SARS-CoV-2 (PCR) NEGATIVE 08/11/21 08/11/21 12:24 16:04 WBC RBC Hgb Hct MCV MCH MCHC RDW Std Deviation RDW Coeff of Alison Plt Count MPV Immature Gran % (Auto) Neut % (Auto) Lymph % (Auto) Mon[place] % (Auto) Eos % (Auto) Baso % (Auto) Neut # (Auto) Lymph # (Auto) Mon[place] # (Auto) Eos # (Auto) Baso # (Auto) Immature Gran # (Auto) PT INR APTT PTT Ratio Sodium Potassium 3.8 Chloride Carbon Dioxide Anion Gap BUN Creatinine Est Cr Clr Drug Dosing Est GFR ( Amer) Est GFR (Non-Af Amer) BUN/Creatinine Ratio Glucose Calcium Magnesium 2.2 Total Bilirubin AST 9 L ALT Alkaline Phosphatase Troponin I Total Protein Albumin Globulin Albumin/Globulin Ratio Lipase Urine Color Pending Urine Appearance Pending Urine pH Pending Ur Specific [place] Pending Urine Protein Pending Urine Glucose (UA) Pending Urine Ketones Pending Urine Blood Pending Urine Nitrite Pending Urine Bilirubin Pending Urine Urobilinogen Pending Ur Leukocyte Esterase Pending COVID-19 Eval Order SARS-CoV-2 (PCR) Diagnostic Findings Abdomen/Pelvis CT 08/11/21 11:15 CT OF THE ABDOMEN AND PELVIS WITH CONTRAST CLINICAL HISTORY: Lower abdominal pain. COMPARISON STUDY: Right upper quadrant ultrasound August 25, 2015. CT of the abdomen and pelvis July 22, 2014. TECHNIQUE: Following IV administration of 95 mL of Optiray, axial images of the abdomen and pelvis were obtained from the lung bases to the proximal femurs. Images were reviewed in the axial, sagittal, and coronal planes. IV contrast was administered without complication. Automated exposure control was utilized for the study. A dose lowering technique was utilized adhering to the principles of ALARA. CT DOSE: 1149.35 mGy.cm FINDINGS: A few small subpleural right lower lobe nodules are noted. These were present on CT of July 22, 2014 and are likely benign. No pneumatosis, free air or portal venous gas is present. There is no biliary ductal dilatation status post cholecystectomy. Borderline splenomegaly is noted. Two left adrenal nodules are unchanged since CT of July 22, 2014. These are likely benign. There is no pancreatic ductal dilatation. No peripancreatic infiltration is present. There is no hydronephrosis. Subcentimeter lesion within the upper pole right kidney is too small to characterize but favors a cyst. No abdominal or pelvic lymphadenopathy is present. There is colonic diverticulosis without evidence for acute diverticulitis. Note is made of a large amount of stool within the cecum which is moderately distended. There is adjacent pericolonic stranding and a small amount of fluid. Colonic change in caliber is noted to the level of the distal ascending colon. The remainder of the colon is relatively decompressed. The small bowel is not distended however there is stool within the terminal ileum. Although no definite mass is noted, there is possible wall thickening of the distal ascending colon. Adjacent soft tissues are unremarkable. Major vasculature is patent. No suspicious lesions are identified within the visualized skeletal structures. IMPRESSION: 1. Large amount of stool within the cecum which is moderately distended. Associated pericolonic stranding and a small amount of fluid. The findings may reflect stercoral colitis and a colonic obstruction at the level of the distal ascending colon may be present given caliber change. Although not definitively identified, a colonic lesion cannot be excluded. GI consultation for consideration for colonoscopy to evaluate for occult obstructing lesion is recommended. No associated lymphadenopathy. No hepatic lesions. 2. Two left adrenal nodules which are unchanged and CT of July 22, 2014. These are benign. 3. Colonic diverticulosis without evidence for acute diverticulitis. ACT 112: Negative or not required by law. Electronically signed by: Jarrell Mcbride M.D. 08/11/2021 2:51 PM Chest X-Ray 08/11/21 11:16 XR chest 1V portable CLINICAL HISTORY: VOMITING COMPARISON STUDY: Chest radiograph April 01, 2021. FINDINGS: Lung volumes are normal. Lungs are clear. There is no pneumothorax or pleural effusion. Cardiomegaly is unchanged. Mediastinal contours are normal. There is no evidence for pulmonary edema. IMPRESSION: No acute cardiopulmonary findings. ACT 112: Negative or not required by law. Electronically signed by: Jarrell Mcbride M.D. 08/11/2021 11:59 AM EKG - my reading - NSR, left axis deviation, no ST changes Code Status & VTE Plan Code Status full PG Care Time/CCT Total # of Minutes Spent Total Time Spent with Patient: Total time spent is greater than 50% in coordination of care (as documented) at patient's floor/unit and/or counseling patient: Coding Level of Care Code 00244 Initial Inpt Care Lvl 3 Diagnoses Colonic obstruction K56.609 Disorder of cecum K63.9 Hypertension I10 Hypertension type: essential hypertension DM2 (diabetes mellitus, type 2) E11.9; Z79.4 Diabetes mellitus complication status: without complication 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 Depression F33.1 Active/Remission status: currently active Depression Type: major depressive disorder Major depression episode severity: moderate Major depression recurrence: recurrent DVT prophylaxis Z29.9 GERD (gastroesophageal reflux disease) K21.9 Lethargy R53.83 (1) DM2 (diabetes mellitus, type 2) Diabetes mellitus complication status: without complication Diabetes mellitus senior living insulin use: with senior living use Qualified Code(s): E11.9 - Type 2 diabetes mellitus without complications; Z79.4 - moth exterminator (current) use of insulin (2) Depression Active/Remission status: currently active Depression Type: major depressive disorder Major depression episode severity: moderate Major depression recurrence: recurrent Qualified Code(s): F33.1 - Major depressive disorder, recurrent, moderate (3) Hypertension Hypertension type: essential hypertension Qualified Code(s): I10 - Essential (primary) hypertension
[2021-08-11 16:23] LABS: Appearance Urine Clear (Clear); Bacteria Urine Automated Negative (Negative); Bilirubin Urine Negative (Negative); Blood Urine Negative (Negative); Color Urine Yellow; Epithelial Cell Urine Auto >30 /lpf (0-5); Glucose Urine UA 3+ (Negative); Ketones Urine 2+ (Negative); Leukocyte Esterase Urine Negative (Negative); Nitrite Urine Negative (Negative); Protein Urine Trace (Negative); RBC Urine Automated 0-4 /hpf (0-4); Specific Gravity Urine 1.029 (1.000-1.030); Urobilinogen Urine Negative (Negative)
--- NOTE | 2021-08-11 16:56 | XRay Report ---
XR chest 1V portable CLINICAL HISTORY: ng tube placement COMPARISON STUDY: Chest radiograph performed earlier today. FINDINGS: Cardiomegaly is incidentally noted. Tip of nasogastric tube is within the gastric antrum. C holecystectomy clips are present. Contrast within the collecting systems is from recent contrast-enha nced CT. IMPRESSION: Tip of nasogastric tube within the gastric antrum. ACT 112: Negative or not required by law. Electronically signed by: Jarrell Mcbride M.D. 08/11/2021 4:55 PM
--- NOTE | 2021-08-11 16:57 | XRay Report ---
XR chest 1V portable CLINICAL HISTORY: ng tube placement after adjust COMPARISON STUDY: Chest radiograph August 11, 2021 of 4:16 PM. FINDINGS: Tip of nasogastric tube is within the distal body of the stomach. Cardiomegaly is noted. Th ere are cholecystectomy clips. Contrast within the collecting systems is from recent contrast-enhance d CT. IMPRESSION: Tip of nasogastric tube within the distal body of the stomach. ACT 112: Negative or not required by law. Electronically signed by: Jarrell Mcbride M.D. 08/11/2021 4:56 PM
[2021-08-11 17:20] LABS: Base Excess VBG -0.2 mEq/L; HCO3 VBG 26 mmol/L; Oxygen Saturation VBG < 60.0 %; PCO2 VBG 47 mmHg (38-50); PO2 VBG 31 mmHg; pH VBG 7.36 (7.36-7.41)
[2021-08-11] MEDS ORDERED: DEXTROSE 50% 50 ML SYRINGE IV PRN (20:00)
[2021-08-11] MEDS ORDERED: GLUCOSE 40% GEL 15 GM TUBE PO PRN (20:00)
[2021-08-11] MEDS ORDERED: GLUCOSE 10 TABS/TUBE PO PRN (20:00)
[2021-08-11] MEDS ORDERED: GLUCAGON FOR INJ 1 MG VIAL IM PRN (20:00)
[2021-08-11] MEDS ORDERED: CARBOHYDRATES FOR HYPOGLYCEMIA PO PRN (20:00)
--- NOTE | 2021-08-11 20:03 | Surgery Consultation ---
Date of Consultation August 11, 2021 Assessment & Plan (1) Large bowel obstruction: Patient has been admitted on the hospitalist service. We recommend proceeding as follows: Maintain NG tube to low continuous suction Maintain n.p.o. status Hydrate with IV fluids As noted on CT scan there is cause for decreased caliber at the patient's distal ascending colon. Is uncertain if the patient has a colon mass. A GI consultation has been requested for consideration of colonoscopy. We'll follow for GIs recommendations as well as colonoscopy results if this is performed. Once this is completed a more definitive surgical plan can be formulated. We'll continue following while the patient is hospitalized Supervising Physician Co-Signing Physician Notes I personally saw and evaluated the patient with Terrence Martin PA-C and agree with the assessment and plan 61 yo female with stercoral colitis versus LBO -Keep NPO -IV Zosyn -GI consult for possible colonoscopy -She has no signs of ischemic bowel or perforation at this time -Will follow closely History of Present Illness Reason for Consultation: Colon obstruction Attending Physician: Idris Duron History of Present Illness This is a 61-year-old female who presented [facility] secondary to nausea vomiting that began earlier this morning. Patient notes over the past several days and weeks she has been feeling fine. She reports numerous episodes of nausea vomiting which prompted her to report to the emergency department. In the emergency department patient did have a CT scan of her abdomen and pelvis performed. This showed a large amount of stool in the cecum which was noted to be distended. Also noted to have some pericolonic stranding and some small amount of fluid. There is concern for colonic obstruction at the level of the distal ascending colon in the interpreting radiologist could not exclude a colonic lesion. A chest x-ray was performed that did not show any evidence of pneumonia. Since admission the patient has had an NG tube placed but she notes that this did not provide significant symptomatic relief. I did question the patient about GI symptoms and she notes that over the past several weeks she has noticed difficulty moving her bowels at times and she is also noted decreased caliber of her of her stool. She reports that she believes her father had colon cancer. She is a remote smoker. In addition the patient reports approximately 10 pound weight loss over the past 2 weeks. This weight loss was unintentional. Concerning other abdominal surgeries the patient did report having an appendectomy and she also had a left inguinal herniorrhaphy. Patient also reports having had a colonoscopy. She does not know the exact date but reports it was several years ago and to the best of her knowledge there is no significant pathology on this study. At the time of my interview she was resting in bed and she was not in any distress. Allergies Allergy/AdvReac Type Severity Reaction Status Date / Time No Known Allergies Allergy Unknown Verified 08/11/21 13:42 Home Medications Medication Instructions Recorded Confirmed Type aspirin 81 mg chewable tablet 1 tab PO HS tab 05/09/19 08/11/21 History lancets 33 gauge (OneTouch Delica #100 ea 07/06/19 07/09/21 Rx Lancets) blood sugar diagnostic (OneTouch #100 ea 04/09/21 07/09/21 Rx Ultra Blue Test Strip) blood-glucose meter (OneTouch #1 ea 04/09/21 07/09/21 Rx Ultra2 Meter) lancets 30 gauge (OneTouch Delica #100 ea 04/09/21 07/09/21 Rx Plus Lancet) pen needle, diabetic 31 gauge x #100 ea 07/01/21 07/09/21 Rx 5/16" (BD Ultra-Fine Short Pen Needle) dulaglutide 0.75 mg/0.5 mL 0.75 mg SUBCUT WK #2 ml 07/19/21 08/11/21 Rx subcutaneous pen injector insulin glargine 100 unit/mL (3 See Rx Instructions SUBCUT QPM #15 07/19/21 08/11/21 Rx mL) subcutaneous pen ml atorvastatin 10 mg tablet 10 mg PO HS 08/11/21 08/11/21 History cholecalciferol (vitamin D3) 25 25 mcg PO QAM 08/11/21 08/11/21 History mcg (1,000 unit) chewable tablet (Vitamin D3) hydrochlorothiazide 25 mg tablet 25 mg PO QAM 08/11/21 08/11/21 History insulin lispro 100 unit/mL See Rx Instructions .ROUTE .COMPLEX 08/11/21 08/11/21 History subcutaneous pen losartan 25 mg tablet 25 mg PO QAM 08/11/21 08/11/21 History pantoprazole 40 mg tablet,delayed 40 mg PO QAM 08/11/21 08/11/21 History release (Protonix) Patient History Medical History Acid reflux Chronic back pain Depression DM type 2 (diabetes mellitus, type 2) IDDM History of hypertension PONV (postoperative nausea and vomiting) Slow to wake up after anesthesia Thyroid nodule Surgical History History of arthroscopy of left knee History of carpal tunnel syndrome History of colonoscopy History of dilatation and curettage History of knee replacement Rt History of removal of cyst History of tubal ligation Status post rotator cuff repair Family History Aunt Breast cancer Father Colorectal cancer patient thinks that the cancer may have been small bowel in location? Grandmother Ovarian cancer Other No family history of adverse response to anesthesia Denies family history of Prostate cancer Myocardial infarction Social History (Updated 08/11/21 @ 22:43 by Idris Duron) Smoking Status: Never smoker Second Hand Exposure: No; Hx Alcohol Use: Yes Alcohol type: beer Alcohol Intake Frequency: Monthly or Less Hx Substance Use: No Preferred Language: Upper Sorbian Communication Ability: Effective Visual Impairment: No Limitations Hearing Ability: Normal Rv Mechanic Required: No Beliefs That Will Affect Care: None marital status: Current Living Situation: Spouse and Family Current Living Situation Comment: lives in [place] current occupational status: unemployed Other Information That Helps Us Care for You: No Feels Safe at Home: Yes Safety Concerns: Feels Safe At This Time Childhood Exposure to Second-Hand Smoke: Yes caffeine: No Dental Care, Regularly: No Physical Activity Frequency: Does not Exercise Seatbelt Use: always Sunscreen Use: Yes Assistive Devices: None Review of Systems Constitutional: no fever and no chills Eyes: no diplopia Ear, Nose, Mouth, Throat: no ear pain Respiratory: no cough Cardiovascular: no chest pain Gastrointestinal: + nausea, + vomiting and + change in stools Genitourinary: no dysuria Musculoskeletal: no back pain Integumentary: no rash Neurologic: no localized weakness Physical Exam Constitutional: well developed and well nourished; no acute distress Eyes: no conjunctival abnormality ENMT: Ears: no hearing impairment Mouth: no oropharynx abnormality Neck: trachea midline Respiratory: normal respiratory effort; no respiratory distress and no labored breathing Cardiovascular: Rate/Rhythm: regular rate and regular rhythm Gastrointestinal (Abdomen): Abdomen is rotund. Abdomen is soft with hypoactive bowel sounds. There is no pain with palpation. There is no rebound tenderness or guarding. Patient had an NG tube in place. Musculoskeletal: No calf tenderness Skin: no rashes Neurologic: moves all extremities Psychiatric: Orientation: alert and oriented x 3 Affect: + flat affect Results & Data ([facility]) Vital Signs (Past 12 Hours) Vital Signs Temp Pulse Pulse Resp BP BP Pulse Ox 08/11/21 18:30 103 H 20 98 08/11/21 18:00 100 H 20 167/85 H 98 08/11/21 17:30 18 95 08/11/21 17:28 96 08/11/21 17:00 103 H 20 95 08/11/21 16:00 105 H 16 168/87 H 94 08/11/21 14:39 97 H 17 163/84 H 97 08/11/21 12:43 88 14 187/96 H 98 08/11/21 10:58 36.4 C L 91 H 18 174/90 H 100 PG Care Time/CCT Total # of Minutes Spent Total Time Spent with Patient: Total time spent is greater than 50% in coordination of care (as documented) at patient's floor/unit and/or counseling patient: Coding Level of Care Code 89107 Inpt Consult Level 5 Diagnoses Large bowel obstruction K56.609
[2021-08-11] MEDS ORDERED: INSULIN ASPART 100 UNITS/ML 3 ML PEN SC SCH (21:00)
[2021-08-11] MEDS: INSULIN GLARGINE SOLOSTAR 100 UNITS/ML 3 ML PEN SC SCH (22:03)
[2021-08-11] MEDS: ENOXAPARIN INJ 40 MG/0.4 ML SYR SQ SCH (22:03)
[2021-08-11] MEDS: ONDANSETRON INJ 2 MG/ML 2 ML VIAL IV PRN (22:06)
[2021-08-11] MEDS: NSS + 20MEQ KCL 20 MEQ/1,000 ML BAG IV SCH (22:06)
[2021-08-11] MEDS: hydrALAZINE HCL 20 MG/ML VIAL IV SCH (22:06)
[2021-08-11] MEDS ORDERED: PANTOprazole 40 MG in SYRINGE 0 ML IV ONE (23:00)
[2021-08-12] MEDS ORDERED: Nursing to Pharmacy Communication SCH (02:15)
[2021-08-12] MEDS: NSS + 20MEQ KCL 20 MEQ/1,000 ML BAG IV SCH ×3 (05:53→22:07)
[2021-08-12] MEDS: INSULIN ASPART 100 UNITS/ML 3 ML PEN SC SCH ×3 (05:54→16:47)
[2021-08-12] MEDS: hydrALAZINE HCL 20 MG/ML VIAL IV SCH ×3 (05:54→19:50)
[2021-08-12] MEDS ORDERED: PNEUMOCOCCAL Polysaccharide Vaccine 25mcg/0.5mL vial/Syr IM ONE (08:00)
[2021-08-12 08:02] LABS: Hematocrit (blood only) 33.5 % (37-47); Hemoglobin 10.5 g/dL (12.0-16.0); Mean Corpuscular Hemoglobin 24.6 pg (25-34); Mean Corpuscular Hgb Conc 31.3 g/dL (32-36); Mean Corpuscular Volume 78.6 fL (80-100); Mean Platelet Volume 8.6 fL (7.4-10.4); Platelet Count 377 K/uL (130-400); RDW Coefficient of Variation 14.8 % (11.5-14.5); RDW Standard Deviation 41.9 fL (36.4-46.3); Red Blood Count 4.26 M/uL (4.2-5.4); White Blood Count 20.22 K/uL (4.8-10.8)
[2021-08-12] MEDS: ONDANSETRON INJ 2 MG/ML 2 ML VIAL IV PRN (08:34)
[2021-08-12] MEDS: INSULIN GLARGINE SOLOSTAR 100 UNITS/ML 3 ML PEN SC SCH ×2 (08:34→20:26)
[2021-08-12 08:37] LABS: BUN Creatinine Ratio 17.8 (10-20); Calcium 8.8 mg/dl (8.5-10.1); Creatinine Clr Calc Pharmacy 108.3 ml/min; Est GFR (African American) 118.9 ml/min; Est GFR (Non-African American) 102.6 ml/min; Potassium 3.5 mmol/L (3.5-5.1)
[2021-08-12] MEDS ORDERED: PIPERACILL/TAZOBAC CONSULT ACTIVE PRN (08:59)
[2021-08-12] MEDS ORDERED: PIPERACILLIN/TAZOBACTAM 4.5 GM in DEXTROSE 5% 100 ML IV STA (09:25)
[2021-08-12] MEDS: CHLORASEPTIC 1.4% SOLN 180 ML BTL MT PRN (09:50)
--- NOTE | 2021-08-12 10:19 | Surgery Progress Note ---
Date of Service August 12, 2021 Assessment & Plan (1) Large bowel obstruction: Plan: Pt here with N/V and CT scan questioning a R sided mass Pt likely has an element of stercoral colitis, WBC 20 today. Will resume IV abx in form of zosyn Continue NGT and NPO with IVF GI consultation in place, they are considering starting some fleets in anticipation for colonoscopy this admission Will await GI evaluation prior to considering surgery in this patient Pt seen/examined with Dr. Tamayo Admission and Anticipated Discharge Date Admission Date: August 11, 2021 Supervising Physician Co-Signing Physician Notes I personally saw and evaluated the patient with Latanya Lynne PA-C and agree with the assessment and plan. 61 yo female with stercoral colitis versus LBO -Keep NPO -IV Zosyn -GI consult for possible colonoscopy -She has no signs of ischemic bowel or perforation at this time -Will follow closely Subjective Patient reports similar belly ache. Not much improved with NGT in place. Not passing any flatus. Physical Exam Physical Exam: awake/alert Gastrointestinal (Abdomen): soft, tender to palpation in R sided abdomen and some in mild epigastric region NGT 400 Results & Data ([facility]) Vital Signs (Past 12 Hours) Vital Signs Temp Pulse Pulse Resp BP Pulse Ox 08/12/21 08:51 101 H 08/12/21 08:22 79 18 151/83 H 90 08/12/21 05:53 177/92 H 08/12/21 00:44 106 H 08/11/21 23:44 37.2 C 106 H 22 174/78 H 94 PG Care Time/CCT Total # of Minutes Spent Total Time Spent with Patient: Total time spent is greater than 50% in coordination of care (as documented) at patient's floor/unit and/or counseling patient: Coding Level of Care Code 01567 Subseq Hosp Care Lvl 1 Diagnoses Large bowel obstruction K56.609
--- NOTE | 2021-08-12 10:27 | Gastrointestinal Consultation ---
Date of Consultation August 12, 2021 Assessment & Plan (1) Large bowel obstruction: (2) Disorder of cecum: (3) Abdominal pain: * Agree with NPO status and continue NG to LIW suction * Fleet enema q 4 hours. * Colonoscopy with Dr. Israel tomorrow for further evaluation. * Continue supportive care per primary team. Thank you for allowing us to participating in the care of this patient. If you have any questions or concerns, please do not hesitate to contact us. Supervising Physician Co-Signing Physician Notes I personally evaluated the patient and agree with the findings as documented by MARGARITA Martinez Exam: abd: soft, rlq tenderness, moderately distended History of Present Illness Reason for Consultation: Colonic obstruction Requesting Physician: Dr. Duron Attending Physician: Robert Cook DO History of Present Illness Edna Lopez is a very pleasant 61 y.o. female with a history of DM, HTN, and depression admitted with abdominal pain as well as nausea with vomiting. She did have a CT upon arrival which demonstrated cecal distension with associated fecal material raising concern for possible underlying colonic lesion. Patient's father carries a history of colon cancer diagnosed at age 72. She did have a screening colonoscopy by [facility] in 2010 and was recommended a surveillance in 5 years. She states she did not have testing performed. Currently, she remains NPO with NG to LIW suction with liquid feculent output. Patient remains nauseated and states she did have an emesis this morning. +RLQ pain and tenderness. Approximate 10 pound weight loss over the past few weeks. No bloody or black stool noted. She is also being followed by general surgery. Allergies Allergy/AdvReac Type Severity Reaction Status Date / Time No Known Allergies Allergy Unknown Verified 08/11/21 13:42 Home Medications Medication Instructions Recorded Confirmed Type aspirin 81 mg chewable tablet 1 tab PO HS tab 05/09/19 08/11/21 History lancets 33 gauge (OneTouch Delica #100 ea 07/06/19 07/09/21 Rx Lancets) blood sugar diagnostic (OneTouch #100 ea 04/09/21 07/09/21 Rx Ultra Blue Test Strip) blood-glucose meter (OneTouch #1 ea 04/09/21 07/09/21 Rx Ultra2 Meter) lancets 30 gauge (OneTouch Delica #100 ea 04/09/21 07/09/21 Rx Plus Lancet) pen needle, diabetic 31 gauge x #100 ea 07/01/21 07/09/21 Rx 5/16" (BD Ultra-Fine Short Pen Needle) dulaglutide 0.75 mg/0.5 mL 0.75 mg SUBCUT WK #2 ml 07/19/21 08/11/21 Rx subcutaneous pen injector insulin glargine 100 unit/mL (3 See Rx Instructions SUBCUT QPM #15 07/19/21 08/11/21 Rx mL) subcutaneous pen ml atorvastatin 10 mg tablet 10 mg PO HS 08/11/21 08/11/21 History cholecalciferol (vitamin D3) 25 25 mcg PO QAM 08/11/21 08/11/21 History mcg (1,000 unit) chewable tablet (Vitamin D3) hydrochlorothiazide 25 mg tablet 25 mg PO QAM 08/11/21 08/11/21 History insulin lispro 100 unit/mL See Rx Instructions .ROUTE .COMPLEX 08/11/21 08/11/21 History subcutaneous pen losartan 25 mg tablet 25 mg PO QAM 08/11/21 08/11/21 History pantoprazole 40 mg tablet,delayed 40 mg PO QAM 08/11/21 08/11/21 History release (Protonix) Patient History Medical History Acid reflux Chronic back pain Depression DM type 2 (diabetes mellitus, type 2) IDDM History of hypertension PONV (postoperative nausea and vomiting) Slow to wake up after anesthesia Thyroid nodule Surgical History History of arthroscopy of left knee History of carpal tunnel syndrome History of colonoscopy History of dilatation and curettage History of knee replacement Rt History of removal of cyst History of tubal ligation Status post rotator cuff repair Family History Aunt Breast cancer Father Colorectal cancer patient thinks that the cancer may have been small bowel in location? Grandmother Ovarian cancer Other No family history of adverse response to anesthesia Denies family history of Prostate cancer Myocardial infarction Social History Smoking Status: Never smoker Second Hand Exposure: No; Hx Alcohol Use: Yes Alcohol type: beer Alcohol Intake Frequency: Monthly or Less Hx Substance Use: No Preferred Language: Syriac Communication Ability: Effective Visual Impairment: No Limitations Hearing Ability: Normal Government Operations Consultant Required: No Beliefs That Will Affect Care: None marital status: Current Living Situation: Spouse and Family Current Living Situation Comment: lives in [place] current occupational status: unemployed Other Information That Helps Us Care for You: No Feels Safe at Home: Yes Safety Concerns: Feels Safe At This Time Childhood Exposure to Second-Hand Smoke: Yes caffeine: No Dental Care, Regularly: No Physical Activity Frequency: Does not Exercise Seatbelt Use: always Sunscreen Use: Yes Assistive Devices: None Review of Systems Constitutional: as per Subjective / HPI Respiratory: no cough and no dyspnea Cardiovascular: no chest pain and no dyspnea on exertion Gastrointestinal: as per Subjective / HPI Physical Exam Constitutional: + obese; no acute distress Eyes: + anicteric sclerae and EOM intact bilaterally Neck: normal visual inspection Respiratory: normal respiratory effort, lungs clear to auscultation Cardiovascular: Rate/Rhythm: regular rate and regular rhythm Gastrointestinal (Abdomen): Inspection/Auscultation: + hypoactive bowel sounds Percussion/Palpation: + abdomen tender (RLQ) and abdomen soft; no guarding and abdomen not rigid Musculoskeletal: Extremities: extremities normal to inspection Skin: no rashes, warm and dry Psychiatric: A+Ox3, euthymic affect Results & Data ([facility]) Vital Signs (Past 12 Hours) Vital Signs Temp Pulse Pulse Resp BP Pulse Ox 08/12/21 08:51 101 H 08/12/21 08:22 79 18 151/83 H 90 08/12/21 05:53 177/92 H 08/12/21 00:44 106 H 08/11/21 23:44 37.2 C 106 H 22 174/78 H 94 Diagnostic Findings Laboratory Results WBC 20.22 K/uL (4.8-10.8) H 08/12/21 07:44 RBC 4.26 M/uL (4.2-5.4) 08/12/21 07:44 Hgb 10.5 g/dL (12.0-16.0) L 08/12/21 07:44 Hct 33.5 % (37-47) L 08/12/21 07:44 MCV 78.6 fL (80-100) L 08/12/21 07:44 MCH 24.6 pg (25-34) L 08/12/21 07:44 MCHC 31.3 g/dL (32-36) L 08/12/21 07:44 RDW Std Deviation 41.9 fL (36.4-46.3) 08/12/21 07:44 RDW Coeff of Alison 14.8 % (11.5-14.5) H 08/12/21 07:44 Plt Count 377 K/uL (130-400) 08/12/21 07:44 MPV 8.6 fL (7.4-10.4) 08/12/21 07:44 Immature Gran % (Auto) 0.3 % 08/11/21 11:40 Neut % (Auto) 90.8 % 08/11/21 11:40 Lymph % (Auto) 5.5 % 08/11/21 11:40 Dillon % (Auto) 3.2 % 08/11/21 11:40 Eos % (Auto) 0.1 % 08/11/21 11:40 Baso % (Auto) 0.1 % 08/11/21 11:40 Neut # (Auto) 13.69 K/uL (1.4-6.5) H 08/11/21 11:40 Lymph # (Auto) 0.83 K/uL (1.2-3.4) L 08/11/21 11:40 Dillon # (Auto) 0.48 K/uL (0.11-0.59) 08/11/21 11:40 Eos # (Auto) 0.01 K/uL (0-0.5) 08/11/21 11:40 Baso # (Auto) 0.02 K/uL (0-0.2) 08/11/21 11:40 Immature Gran # (Auto) 0.05 K/uL (0.00-0.02) H 08/11/21 11:40 PT 10.1 Seconds (9.0-12.0) 08/11/21 12:24 INR 1.0 (0.9-1.1) 08/11/21 12:24 APTT 23.9 Seconds (21.0-31.0) 08/11/21 12:24 PTT Ratio 0.9 08/11/21 12:24 VBG pH 7.36 (7.36-7.41) 08/11/21 17:07 VBG pCO2 47 mmHg (38-50) 08/11/21 17:07 VBG pO2 31 mmHg 08/11/21 17:07 VBG HCO3 26 mmol/L 08/11/21 17:07 VBG O2 Saturation < 60.0 % 08/11/21 17:07 VBG Base Excess -0.2 mEq/L 08/11/21 17:07 Barometric Pressure 735.2 mm/Hg 08/11/21 17:07 Sodium 138 mmol/L (136-145) 08/12/21 07:44 Potassium 3.5 mmol/L (3.5-5.1) 08/12/21 07:44 Chloride 105 mmol/L (98-107) 08/12/21 07:44 Carbon Dioxide 24 mmol/L (21-32) 08/12/21 07:44 Anion Gap 9.0 (3-11) 08/12/21 07:44 BUN 10 mg/dl (7-18) 08/12/21 07:44 Creatinine 0.54 mg/dl (0.6-1.2) L 08/12/21 07:44 Est Cr Clr Drug Dosing 108.3 ml/min 08/12/21 07:44 Est GFR ( Amer) 118.9 ml/min 08/12/21 07:44 Est GFR (Non-Af Amer) 102.6 ml/min 08/12/21 07:44 BUN/Creatinine Ratio 17.8 (10-20) 08/12/21 07:44 Glucose 240 mg/dl (70-99) H 08/12/21 07:44 POC Glucose 255 mg/dl (70-99) H 08/12/21 07:35 Lactate 2.2 mmol/L (0.4-2.0) H* 08/11/21 17:07 Calcium 8.8 mg/dl (8.5-10.1) 08/12/21 07:44 Magnesium 2.2 mg/dl (1.8-2.4) 08/11/21 12:24 Total Bilirubin 0.9 mg/dl (0.2-1) 08/11/21 11:40 AST 9 U/L (15-37) L 08/11/21 12:24 ALT 23 U/L (12-78) 08/11/21 11:40 Alkaline Phosphatase 93 U/L (45-117) 08/11/21 11:40 Troponin I < 0.015 ng/ml (0-0.045) 08/11/21 11:40 Total Protein 7.7 gm/dl (6.4-8.2) 08/11/21 11:40 Albumin 3.5 gm/dl (3.4-5.0) 08/11/21 11:40 Globulin 4.2 gm/dl (2.5-4.0) H 08/11/21 11:40 Albumin/Globulin Ratio 0.8 (0.9-2) L 08/11/21 11:40 Lipase 91 U/L (73-393) 08/11/21 11:40 Urine Color Yellow 08/11/21 16:04 Urine Appearance Clear (Clear) 08/11/21 16:04 Urine pH 5.0 (4.5-7.5) 08/11/21 16:04 Ur Specific [place] 1.029 (1.000-1.030) 08/11/21 16:04 Urine Protein Trace (Negative) H 08/11/21 16:04 Urine Glucose (UA) 3+ (Negative) H 08/11/21 16:04 Urine Ketones 2+ (Negative) H 08/11/21 16:04 Urine Blood Negative (Negative) 08/11/21 16:04 Urine Nitrite Negative (Negative) 08/11/21 16:04 Urine Bilirubin Negative (Negative) 08/11/21 16:04 Urine Urobilinogen Negative (Negative) 08/11/21 16:04 Ur Leukocyte Esterase Negative (Negative) 08/11/21 16:04 Urine WBC (Auto) 1-5 /hpf (0-5) 08/11/21 16:04 Urine RBC (Auto) 0-4 /hpf (0-4) 08/11/21 16:04 U Hyaline Cast (Auto) 1-5 /lpf (0-5) 08/11/21 16:04 U Epithel Cells (Auto) >30 /lpf (0-5) H 08/11/21 16:04 Urine Bacteria (Auto) Negative (Negative) 08/11/21 16:04 COVID-19 Eval Order Covid19 at [facility] 08/11/21 11:47 SARS-CoV-2 (PCR) NEGATIVE (Negative) 08/11/21 11:47 Impressions Abdomen/Pelvis CT 08/11/21 11:15 CT OF THE ABDOMEN AND PELVIS WITH CONTRAST CLINICAL HISTORY: Lower abdominal pain. COMPARISON STUDY: Right upper quadrant ultrasound August 25, 2015. CT of the abdomen and pelvis July 22, 2014. TECHNIQUE: Following IV administration of 95 mL of Optiray, axial images of the abdomen and pelvis were obtained from the lung bases to the proximal femurs. Images were reviewed in the axial, sagittal, and coronal planes. IV contrast was administered without complication. Automated exposure control was utilized for the study. A dose lowering technique was utilized adhering to the principles of ALARA. CT DOSE: 1149.35 mGy.cm FINDINGS: A few small subpleural right lower lobe nodules are noted. These were present on CT of July 22, 2014 and are likely benign. No pneumatosis, free air or portal venous gas is present. There is no biliary ductal dilatation status post cholecystectomy. Borderline splenomegaly is noted. Two left adrenal nodules are unchanged since CT of July 22, 2014. These are likely benign. There is no pancreatic ductal dilatation. No peripancreatic infiltration is pre sent. There is no hydronephrosis. Subcentimeter lesion within the upper pole right kidney is too small to characterize but favors a cyst. No abdominal or pelvic lymphadenopathy is present. There is colonic diverticulosis without evidence for acute diverticulitis. Note is made of a large amount of stool within the cecum which is moderately distended. There is adjacent pericolonic stranding and a small amount of fluid. Colonic change in caliber is noted to the level of the distal ascending colon. The remainder of the colon is relatively decompressed. The small bowel is not distended however there is stool within the terminal ileum. Although no definite mass is noted, there is possible wall thickening of the distal ascending colon. Adjacent soft tissues are unremarkable. Major vasculature is patent. No suspicious lesions are identified within the visualized skeletal structures. IMPRESSION: 1. Large amount of stool within the cecum which is moderately distended. Associated pericolonic stranding and a small amount of fluid. The findings may reflect stercoral colitis and a colonic obstruction at the level of the distal ascending colon may be present given caliber change. Although not definitively identified, a colonic lesion cannot be excluded. GI consultation for consideration for colonoscopy to evaluate for occult obstructing lesion is recommended. No associated lymphadenopathy. No hepatic lesions. 2. Two left adrenal nodules which are unchanged and CT of July 22, 2014. These are benign. 3. Colonic diverticulosis without evidence for acute diverticulitis. ACT 112: Negative or not required by law. Electronically signed by: Jarrell Mcbride M.D. 08/11/2021 2:51 PM Chest X-Ray 08/11/21 16:27 XR chest 1V portable CLINICAL HISTORY: ng tube placement after adjust COMPARISON STUDY: Chest radiograph August 11, 2021 of 4:16 PM. FINDINGS: Tip of nasogastric tube is within the distal body of the stomach. Cardiomegaly is noted. There are cholecystectomy clips. Contrast within the collecting systems is from recent contrast-enhanced CT. IMPRESSION: Tip of nasogastric tube within the distal body of the stomach. ACT 112: Negative or not required by law. Electronically signed by: Jarrell Mcbride M.D. 08/11/2021 4:56 PM PG Care Time/CCT Total # of Minutes Spent Total Time Spent with Patient: Total time spent is greater than 50% in coordination of care (as documented) at patient's floor/unit and/or counseling patient: Coding Level of Care Code 10540 Initial Inpt Care Lvl 3 Diagnoses Large bowel obstruction K56.609 Disorder of cecum K63.9 Abdominal pain R10.30 Abdominal location: lower abdomen, unspecified (1) Abdominal pain Abdominal location: lower abdomen, unspecified Qualified Code(s): R10.30 - Lower abdominal pain, unspecified
[2021-08-12] MEDS ORDERED: SOD PHOSPHATE/SOD BIPHOSPHATE ENEMA 132 ML BTL PR ONE (10:43)
[2021-08-12] MEDS ORDERED: PANTOprazole 40 MG in SYRINGE 0 ML IV SCH (11:00)
--- NOTE | 2021-08-12 11:59 | Electrocardiogram Report ---
Test Reason : Blood Pressure : / mmHG Vent. Rate : 087 BPM Atrial Rate : 087 BPM P-R Int : 162 ms QRS Dur : 080 ms QT Int : 384 ms P-R-T Axes : 040 -20 043 degrees QTc Int : 462 ms Normal sinus rhythm Normal ECG When compared with ECG of 01-APR-2021 13:57, No significant change was found Confirmed by Bj Freire ([id number]) on 08/12/2021 11:59:13 AM Referred By: REFERRED SELF Confirmed By:Bj Freire
[2021-08-12] MEDS: SOD PHOSPHATE/SOD BIPHOSPHATE ENEMA 132 ML BTL PR SCH ×3 (12:03→19:50)
--- NOTE | 2021-08-12 12:41 | XRay Report ---
KUB CLINICAL HISTORY: Generalized abdominal pain. Colonic obstruction. FINDINGS: 2 AP supine abdominal radiographs are correlated with abdominal CT dated 08/11/2021. Excrete d IV contrast fills the bladder. Cholecystectomy clips are noted in the right upper quadrant. The rig ht colon is distended and filled with stool, with the cecum measuring 12 cm in diameter. There is a p aucity of gas and stool in the left colon. The small bowel loops are normal in caliber. No evidence o f intraperitoneal free air is seen on these supine views. There are no abnormal abdominal calcificati ons. Phleboliths are noted in the pelvis and there are large gluteal calcifications. The skeletal str uctures are osteopenic and appear intact. There is moderate lumbosacral spondylosis. IMPRESSION: 1. The small bowel loops are normal in caliber. 2. The cecum is markedly distended and filled with stool measuring up to 12 cm. This is similar to pr evious and consistent with reported history of a colonic obstruction. Electronically signed by: Jerry Boateng M.D. 08/12/2021 12:40 PM
[2021-08-12] MEDS ORDERED: ACETAMINOPHEN 1,000 MG/100 ML VIAL IV STA (15:49)
[2021-08-12] MEDS ORDERED: hydrALAZINE HCL 20 MG/ML VIAL IV PRN (16:13)
[2021-08-12] MEDS: PIPERACILLIN/TAZOBACTAM 4.5 GM in DEXTROSE 5% 100 ML IV SCH (16:20)
--- NOTE | 2021-08-12 16:23 | Hospitalist Progress Note ---
Date of Service August 12, 2021 Assessment & Plan (1) Colonic obstruction: Plan: Clinical picture and CT abd/pelvis c/w colonic obstruction. Transition point appears to be the ascending colon. CT with concern for mass patientwith associated leukocytosis-- ? infectious vs reactive NGT in place--> LIS NPO. IVF. empiric abx therapy given leukocytosis General surgery and GI consulted--> appreciate recommendations. Plan is for c.scope 08/13 KUB x-ray in am for interval change. Add Chloraseptic spray to help with discomfort of NGT The colonic obstruction could be 2nd colon cancer or other obstructing pathology (stricture, etc). Pt's father had colon cancer. follow Labs to trend (2) Disorder of cecum: Plan: Marked cecal dilatation on CT. 2nd to suspected colonic obstruction. see above (3) Hypertension: Plan: HOLD PO meds. on routine hydralazine but still with accelerated HTN-- pay be anxiety and pain induced increase hydralazine to 10mg q8h (4) DM2 (diabetes mellitus, type 2): Plan: total daily dose at home nearly 100 units. patient will be NPO. start lantus 10 units BID; adjust as needed. novolog - correction factor 30; adjust as needed. FBS 110 today last a1c 8.4% in May. (5) Depression: Plan: not on meds for such. (6) DVT prophylaxis: Plan: lovenox 40mg daily (7) GERD (gastroesophageal reflux disease): Plan: IV PPI daily Admission and Anticipated Discharge Date Admission Date: August 11, 2021 Subjective Patient seen on daily rounds today. Still complaining of abdominal pain. Is dry heaving but believes that it may be secondary to the NG tube hitting her gag reflex rather than her being persistently nauseated. Is not passing gas. There was concern for a mass on her CT scan. Seen by GI who is planning a colonoscopy tomorrow. Review of Systems Review of Systems: All systems reviewed and are unremarkable except as noted in HPI and below Denies fevers, chills, headache, nasal congestion, sore throat, cough, chest pain, shortness of breath, palpitations, orthopnea, PND, vomiting, diarrhea, constipation, dysuria, hematuria, frequency, back pain, joint pain or swelling, easy bruising or bleeding, skin lesions or rashes. Physical Exam Physical Exam: General: Resting comfortably in her hospital bed. Persistent dry heaves/gagging noted. HEENT: Head is AT/NC buccal mucosa is moist and pink Neck: No JVD. Negative hepatojugular reflex Cardiac: RRR without M/G/R Lungs: CTA without W/R/R Abdomen: Abdomen is not overly distended. No bowel sounds noted throughout. Is tender in the bilateral lower quadrants Extremities: No peripheral clubbing cyanosis or edema Neuro: A&O X4 cranial nerves II through XII are grossly intact no focal neuro deficits Skin: No obvious skin lesions or rashes Psych: Appropriate affect pleasant and cooperative Results & Data Results & Data ([facility]) Vital Signs (Past 12 Hours) Vital Signs Temp Pulse Pulse Resp BP Pulse Ox 08/12/21 14:56 98 H 08/12/21 11:34 36.6 C 102 H 18 188/94 H 102 H 08/12/21 08:51 101 H 08/12/21 08:22 79 18 151/83 H 90 08/12/21 05:53 177/92 H PG Care Time/CCT Total # of Minutes Spent Total Time Spent with Patient: Total time spent is greater than 50% in coordination of care (as documented) at patient's floor/unit and/or counseling patient: Coding Level of Care Code 58633 Subseq Hosp Care Lvl 2 Diagnoses Colonic obstruction K56.609 Disorder of cecum K63.9 Hypertension I10 Hypertension type: essential hypertension DM2 (diabetes mellitus, type 2) E11.9; Z79.4 Diabetes mellitus ad terminal makeup operator insulin use: with ad terminal makeup operator use Diabetes mellitus complication status: without complication Depression F33.1 Depression Type: major depressive disorder Major depression recurrence: recurrent Active/Remission status: currently active Major depression episode severity: moderate DVT prophylaxis Z29.9 GERD (gastroesophageal reflux disease) K21.9 (1) Hypertension Hypertension type: essential hypertension Qualified Code(s): I10 - Essential (primary) hypertension (2) DM2 (diabetes mellitus, type 2) Diabetes mellitus ad terminal makeup operator insulin use: with custodial use Diabetes mellitus complication status: without complication Qualified Code(s): E11.9 - Type 2 diabetes mellitus without complications; Z79.4 - manager long term care (current) use of insulin (3) Depression Depression Type: major depressive disorder Major depression recurrence: recurrent Active/Remission status: currently active Major depression episode severity: moderate Qualified Code(s): F33.1 - Major depressive disorder, recurrent, moderate
[2021-08-12] MEDS: ENOXAPARIN INJ 40 MG/0.4 ML SYR SQ SCH (19:50)
[2021-08-12] MEDS: HYDROmorphone INJ 0.5 MG/0.5 ML SYR IV PRN (21:39)
[2021-08-12 21:45] LABS: BUN Creatinine Ratio 16.3 (10-20); Creatinine Clr Calc Pharmacy 102.6 ml/min; Est GFR (African American) 116.8 ml/min; Est GFR (Non-African American) 100.8 ml/min; Potassium 3.3 mmol/L (3.5-5.1)
[2021-08-12 21:46] LABS: Phosphorus 3.1 mg/dl (2.5-4.9)
[2021-08-13] MEDS: SOD PHOSPHATE/SOD BIPHOSPHATE ENEMA 132 ML BTL PR SCH ×6 (00:05→20:54)
[2021-08-13] MEDS: PIPERACILLIN/TAZOBACTAM 4.5 GM in DEXTROSE 5% 100 ML IV SCH ×4 (00:05→23:59)
[2021-08-13] MEDS: INSULIN ASPART 100 UNITS/ML 3 ML PEN SC SCH ×4 (00:10→17:58)
[2021-08-13] MEDS: ACETAMINOPHEN 1,000 MG/100 ML VIAL IV PRN (00:25)
[2021-08-13] MEDS: hydrALAZINE HCL 20 MG/ML VIAL IV SCH ×3 (03:51→21:07)
[2021-08-13] MEDS: NSS + 20MEQ KCL 20 MEQ/1,000 ML BAG IV SCH ×3 (05:58→23:13)
[2021-08-13] MEDS: ONDANSETRON INJ 2 MG/ML 2 ML VIAL IV PRN (06:37)
[2021-08-13] MEDS: HYDROmorphone INJ 0.5 MG/0.5 ML SYR IV PRN (06:48)
--- NOTE | 2021-08-13 08:11 | Anesthesiology Consultation ---
Date of Service August 13, 2021 Assessment & Plan (1) Encounter for pre-operative examination: Chart Review Chart Review: data entry technician initiated History Surgery Operation Date: 08/13/21 16:30 Proposed Procedures p Colonoscopy Dr. Jhonatan Israel MD Height/Weight Height: 5 ft Weight: 87.9 kg Allergies Allergy/AdvReac Type Severity Reaction Status Date / Time No Known Allergies Allergy Unknown Verified 08/11/21 13:42 Medications Home Medications Medication Instructions Recorded Confirmed Last Taken aspirin 81 mg chewable tablet 1 tab PO HS tab 05/09/19 08/11/21 08/10/21 lancets 33 gauge (OneTouch Delica #100 ea 07/06/19 07/09/21 Unknown Lancets) blood sugar diagnostic (OneTouch #100 ea 04/09/21 07/09/21 Unknown Ultra Blue Test Strip) blood-glucose meter (OneTouch #1 ea 04/09/21 07/09/21 Unknown Ultra2 Meter) lancets 30 gauge (OneTouch Delica #100 ea 04/09/21 07/09/21 Unknown Plus Lancet) pen needle, diabetic 31 gauge x #100 ea 07/01/21 07/09/21 Unknown 5/16" (BD Ultra-Fine Short Pen Needle) dulaglutide 0.75 mg/0.5 mL 0.75 mg SUBCUT WK #2 ml 07/19/21 08/11/21 08/10/21 subcutaneous pen injector insulin glargine 100 unit/mL (3 See Rx Instructions SUBCUT QPM #15 07/19/21 08/11/21 08/10/21 mL) subcutaneous pen ml atorvastatin 10 mg tablet 10 mg PO HS 08/11/21 08/11/21 08/10/21 cholecalciferol (vitamin D3) 25 25 mcg PO QAM 08/11/21 08/11/21 08/10/21 mcg (1,000 unit) chewable tablet (Vitamin D3) hydrochlorothiazide 25 mg tablet 25 mg PO QAM 08/11/21 08/11/21 08/10/21 insulin lispro 100 unit/mL See Rx Instructions .ROUTE .COMPLEX 08/11/21 08/11/21 Unknown subcutaneous pen losartan 25 mg tablet 25 mg PO QAM 08/11/21 08/11/21 08/10/21 pantoprazole 40 mg tablet,delayed 40 mg PO QAM 08/11/21 08/11/21 08/10/21 release (Protonix) Active Medications Generic Name Dose Route Start Last Admin Trade Name Luke PRN Reason Stop Dose Admin Enoxaparin Sodium 40 mg 08/11/21 20:00 08/12/21 19:50 Enoxaparin Inj 40 Mg/0.4 Ml Syr SQ 09/10/21 19:59 40 mg Q24H SHANICE Administration Hydralazine HCl 10 mg 08/12/21 20:00 08/13/21 03:51 Hydralazine Hcl 20 Mg/Ml Vial IV 09/11/21 19:59 10 mg Q8H SHANICE Administration Hydromorphone HCl 0.25 mg 08/11/21 19:47 08/13/21 06:48 Hydromorphone Inj 0.5 Mg/0.5 Ml Syr IV 08/25/21 19:46 0.25 mg Q6H PRN Administration Pain Potassium Chloride/Sodium Chloride 20 meq in 1,000 mls @ 125 mls/hr 08/11/21 21:00 08/13/21 05:58 Normal Saline W/20 Meq Kcl IV 09/10/21 20:59 125 mls/hr .Q8H SHANICE Administration Pantoprazole Sodium 40 mg/ 10 mls @ 5 mls/min 08/12/21 11:00 08/12/21 10:22 Syringe IV 09/11/21 10:59 5 mls/min DAILY@1100 SHANICE Administration Piperacillin Sod/Tazobactam 120 mls @ 30 mls/hr 08/12/21 16:00 08/13/21 07:54 Sod 4.5 gm/ Dextrose IV 08/22/21 15:59 30 mls/hr Q8H SHANICE Administration Protocol Acetaminophen 1,000 mg in 100 mls @ 400 mls/hr 08/13/21 00:00 08/13/21 00:39 Ofirmev IV 08/16/21 00:00 Infused Q8H PRN Infusion TAYLOR/fever/pain Insulin Aspart 0 units 08/12/21 06:00 08/13/21 05:58 Insulin Aspart 100 Units/Ml 3 Ml Pen SC 09/10/21 20:59 1 units Q6 SHANICE Administration Insulin Glargine 10 units 08/11/21 21:00 08/12/21 20:26 Insulin Glargine Solostar 100 Units/Ml 3 Ml Pen SC 09/10/21 20:59 10 units BID SHANICE Administration Ondansetron HCl 4 mg 08/11/21 19:47 08/13/21 06:37 Ondansetron Inj 2 Mg/Ml 2 Ml Vial IV 09/10/21 19:46 4 mg Q6H PRN Administration Nausea Phenol 2 sprays 08/12/21 09:08 08/12/21 09:50 Chloraseptic 1.4% Soln 180 Ml Btl MT 09/11/21 09:07 2 sprays Q2H PRN Administration Sore Throat Sodium Biphosphate/Sodium Phosphate 132 ml 08/12/21 12:00 08/13/21 08:09 Sod Phosphate/Sod Biphosphate Enema 132 Ml Btl CA 08/13/21 23:59 132 ml Q4 SHANICE Administration Past Medical History Medical History Acid reflux Chronic back pain Depression DM type 2 (diabetes mellitus, type 2) IDDM History of hypertension PONV (postoperative nausea and vomiting) Slow to wake up after anesthesia Thyroid nodule Past Family History Family History Aunt Breast cancer Father Colorectal cancer patient thinks that the cancer may have been small bowel in location? Grandmother Ovarian cancer Other No family history of adverse response to anesthesia Denies family history of Prostate cancer Myocardial infarction Past Surgical History Surgical History History of arthroscopy of left knee History of carpal tunnel syndrome History of colonoscopy History of dilatation and curettage History of knee replacement Rt History of removal of cyst History of tubal ligation Status post rotator cuff repair Social History Smoking Status: Never smoker Hx Alcohol Use: Yes Alcohol type: beer alcohol intake frequency: a few times a month Hx Substance Use: No substance use type: does not use Physical Exam Vital Signs Last Vital Signs Temp 98.1 F 08/13/21 08:09 Pulse 95 H 08/13/21 08:09 Resp 18 08/13/21 08:09 BP 159/81 H 08/13/21 08:09 Pulse Ox 94 08/13/21 08:09 Testing Laboratory Results 08/12/21 07:44 08/12/21 21:02 PT 10.1 Seconds (9.0-12.0) 08/11/21 12:24 INR 1.0 (0.9-1.1) 08/11/21 12:24 APTT 23.9 Seconds (21.0-31.0) 08/11/21 12:24 Urine Color Yellow 08/11/21 16:04 Urine Appearance Clear (Clear) 08/11/21 16:04 Urine pH 5.0 (4.5-7.5) 08/11/21 16:04 Ur Specific [place] 1.029 (1.000-1.030) 08/11/21 16:04 Urine Protein Trace (Negative) H 08/11/21 16:04 Urine Glucose (UA) 3+ (Negative) H 08/11/21 16:04 Urine Ketones 2+ (Negative) H 08/11/21 16:04 Urine Nitrite Negative (Negative) 08/11/21 16:04 Ur Leukocyte Esterase Negative (Negative) 08/11/21 16:04 Urine WBC (Auto) 1-5 /hpf (0-5) 08/11/21 16:04 Urine RBC (Auto) 0-4 /hpf (0-4) 08/11/21 16:04 U Hyaline Cast (Auto) 1-5 /lpf (0-5) 08/11/21 16:04 U Epithel Cells (Auto) >30 /lpf (0-5) H 08/11/21 16:04 Urine Bacteria (Auto) Negative (Negative) 08/11/21 16:04 08/13/21 08/13/21 08/12/21 05:52 00:04 20:14 POC Glucose 177 H 159 H 174 H Electrocardiogram Date: 08/11/21 Normal sinus rhythm, rate 87 bpm Normal ECG When compared with ECG of 01-APR-2021 13:57, No significant change was found Confirmed by Bj Freire ([id number]) on 08/12/2021 11:59:13 AM Chest X-Ray Date: 08/11/21 IMPRESSION: Tip of nasogastric tube within the distal body of the stomach. Echocardiogram Date: 07/30/21 Normal LV size with hyperdynamic systolic function. EF > 70%. No regional wall motion abnormalities. No LVH No significant valvular abnormalities No significant change from prior study on 04/11/2008.
[2021-08-13 08:26] LABS: Basophils # (auto) 0.02 K/uL (0-0.2); Basophils % (auto) 0.1 %; Eosinophils # (auto) 0.03 K/uL (0-0.5); Eosinophils % (auto) 0.2 %; Hematocrit (blood only) 32.2 % (37-47); Immature Granulocytes # (auto) 0.08 K/uL (0.00-0.02); Immature Granulocytes % (auto) 0.5 %; Lymphocytes # (auto) 0.94 K/uL (1.2-3.4); Lymphocytes % (auto) 5.6 %; Mean Corpuscular Hemoglobin 24.4 pg (25-34); Mean Corpuscular Hgb Conc 31.1 g/dL (32-36); Mean Corpuscular Volume 78.5 fL (80-100); Mean Platelet Volume 8.6 fL (7.4-10.4); Monocytes # (auto) 1.33 K/uL (0.11-0.59); Monocytes % (auto) 7.9 %; Neutrophils # (auto) 14.38 K/uL (1.4-6.5); Neutrophils % (auto) 85.7 %; Platelet Count 370 K/uL (130-400); RDW Standard Deviation 43.2 fL (36.4-46.3); White Blood Count 16.78 K/uL (4.8-10.8)
[2021-08-13 08:53] LABS: BUN Creatinine Ratio 20.4 (10-20); Calcium 8.4 mg/dl (8.5-10.1); Creatinine Clr Calc Pharmacy 155.2 ml/min; Est GFR (African American) 133.4 ml/min; Est GFR (Non-African American) 115.1 ml/min; Magnesium 2.3 mg/dl (1.8-2.4); Potassium 3.1 mmol/L (3.5-5.1)
--- NOTE | 2021-08-13 09:22 | History & Physical Bridge Note ---
Date of Service August 13, 2021 History & Physical Bridge Note I have examined the patient, reviewed the History & Physical and in the interval since the performance of the History & Physical I have noted the following changes of clinical significance: no changes noted. Minimal stool output with enemas per nursing. Patient continues with RLQ pain and nausea. NG with minimal feculent output this morning. PE: A&Ox3. RRR. Lungs CTA bilaterally. Abdomen soft, tender. Hypoactive bowel sounds. A/P: 61 y.o. female with cecal dilation with associated colonic obstruction, concerning for mass. * NPO for now. * Continue q 4 hour enemas for now. * Colonoscopy today with Dr. Israel for further evaluation. * Further recommendations pending results of testing.
--- NOTE | 2021-08-13 09:48 | XRay Report ---
XR KUB/Abdomen 1 view CLINICAL HISTORY: fu on obstruction TECHNIQUE: 1 view of the abdomen was obtained. Comparison: Comparison is made to abdominal radiograph 08/12/2021 FINDINGS: Lung bases are unremarkable. The osseous structures are grossly unremarkable. The cecum is again note d to be distended and there is gaseous distention of the transverse colon as well. The small bowel lo ops are normal in caliber. A moderate amount of stool is noted within the large bowel. IMPRESSION: Minimal improvement in cecal and transverse colon distention. No small bowel obstruction is seen. ACT 112: Negative or not required by law. Electronically signed by: Robert Mancilla M.D. 08/13/2021 9:46 AM
--- NOTE | 2021-08-13 10:32 | Hospitalist Progress Note ---
Date of Service August 13, 2021 Assessment & Plan (1) Colonic obstruction: Plan: Clinical picture and CT abd/pelvis c/w colonic obstruction. Transition point appears to be the ascending colon. CT with concern for mass patient with associated leukocytosis-- ? infectious vs reactive NGT in place--> LIS. Now with visible flood in NG canister with normal H/H no significant improvement or change in symptoms (is moving bowels and passing flatus but only with the enemas for bowel prep. Still with abd pain, N/V). Does have bowel sounds today continue NPO. IVF. empiric abx therapy given leukocytosis General surgery and GI consulted--> appreciate recommendations. Plan is for c.scope 08/13 continue serial KUB's Chloraseptic spray to help with discomfort of NGT Increase IV protonix to BID and add pepcid IV for GI prophylaxis and hold lovenox tonight. continue to trend H/H The colonic obstruction could be 2nd colon cancer or other obstructing pathology (stricture, etc). Pt's father had colon cancer. follow Labs to trend (2) Disorder of cecum: Plan: Marked cecal dilatation on CT. 2nd to suspected colonic obstruction. see above (3) Hypertension: Plan: HOLD PO meds. on routine hydralazine but still with accelerated HTN-- pay be anxiety and pain induced hydralazine 10mg q8h. BP currently acceptable (4) DM2 (diabetes mellitus, type 2): Plan: total daily dose at home nearly 100 units. patient currently NPO. lantus 10 units BID; adjust as needed. novolog - correction factor 30; adjust as needed. FBS 162 today--> acceptable last a1c 8.4% in May. (5) Depression: Plan: not on meds for such. (6) DVT prophylaxis: Plan: was on lovenox 40mg daily but hold this today (as outlined above) (7) GERD (gastroesophageal reflux disease): Plan: IV PPI increased to BID and pepcid added Admission and Anticipated Discharge Date Admission Date: August 11, 2021 Subjective Patient seen on daily rounds today. Still having complaints of abdominal pain, and nausea. Has had multiple episodes of dry heaving without emesis. Has been receiving scheduled fleets enemas in preparation for colonoscopy. Very little BM. Otherwise, not moving bowels and not having flatus (without the fleets enema). Reports that this NG tube is still causing significant irritation in her throat and that the Chloraseptic spray is not helping. Review of Systems Review of Systems: All systems reviewed and are unremarkable except as noted in HPI and below Denies fevers, chills, headache, nasal congestion, cough, chest pain, shortness of breath, palpitations, orthopnea, PND, diarrhea, constipation, dysuria, hematuria, frequency, back pain, joint pain or swelling, easy bruising or bleeding, skin lesions or rashes. Physical Exam Physical Exam: General: Resting comfortably in her hospital bed. Appears mildly ill but not toxic. NAD. HEENT: Head is AT/NC buccal mucosa is moist and pink Neck: No JVD. Negative hepatojugular reflex Cardiac: RRR without M/G/R Lungs: CTA without W/R/R Abdomen: Abdomen is nondistended. She does appear to have very hypoactive bowel sounds in the upper quadrants. No bowel sounds in the lower quadrants. Exquisitely tender in the lower quadrants bilaterally. Mildly tender in the upper quadrants. Extremities: No peripheral clubbing cyanosis or edema Neuro: A&O X4 cranial nerves II through XII are grossly intact no focal neuro deficits Skin: No obvious skin lesions or rashes Psych: Appropriate affect pleasant and cooperative Results & Data Results & Data ([facility]) Vital Signs (Past 12 Hours) Vital Signs Temp Pulse Pulse Resp BP Pulse Ox 08/13/21 08:09 36.7 C 95 H 18 159/81 H 94 08/13/21 07:24 100 H 08/13/21 03:50 36.8 C 91 H 18 173/96 H 94 08/13/21 00:34 93 H 08/12/21 23:00 36.9 C 95 H 18 151/76 H 91 PG Care Time/CCT Total # of Minutes Spent Total Time Spent with Patient: Total time spent is greater than 50% in coordination of care (as documented) at patient's floor/unit and/or counseling patient: Coding Level of Care Code 66155 Subseq Hosp Care Lvl 3 Diagnoses Colonic obstruction K56.609 Disorder of cecum K63.9 Hypertension I10 Hypertension type: essential hypertension DM2 (diabetes mellitus, type 2) E11.9; Z79.4 Diabetes mellitus complication status: without complication Diabetes mellitus flight agent insulin use: with flight agent use Depression F33.1 Active/Remission status: currently active Depression Type: major depressive disorder Major depression episode severity: moderate Major depression recurrence: recurrent DVT prophylaxis Z29.9 GERD (gastroesophageal reflux disease) K21.9 (1) DM2 (diabetes mellitus, type 2) Diabetes mellitus complication status: without complication Diabetes mellitus flight agent insulin use: with flight agent use Qualified Code(s): E11.9 - Type 2 diabetes mellitus without complications; Z79.4 - contract clerk automobile (current) use of insulin (2) Depression Active/Remission status: currently active Depression Type: major depressive disorder Major depression episode severity: moderate Major depression recurrence: recurrent Qualified Code(s): F33.1 - Major depressive disorder, recurrent, moderate (3) Hypertension Hypertension type: essential hypertension Qualified Code(s): I10 - Essential (primary) hypertension
[2021-08-13] MEDS: INSULIN GLARGINE SOLOSTAR 100 UNITS/ML 3 ML PEN SC SCH ×2 (11:01→22:01)
[2021-08-13] MEDS: POTASSIUM CHLORIDE / WTR 10 MEQ/100 ML PLCT IV SCH ×2 (11:48→13:04)
[2021-08-13] MEDS: FAMOTIDINE 20 MG in SYRINGE 3 ML IV SCH ×2 (11:49→21:10)
[2021-08-13] MEDS: PANTOprazole 40 MG in SYRINGE 0 ML IV SCH ×2 (11:50→21:11)
[2021-08-13] MEDS ORDERED: PROCHLORPERAZINE 10 MG in SYRINGE 8 ML IV ONE (12:30)
--- NOTE | 2021-08-13 13:08 | Surgery Progress Note ---
Date of Service August 13, 2021 Assessment & Plan (1) Large bowel obstruction: Plan: Pt here with N/V and CT scan questioning a R sided mass WBC 16, continue on IV abx for concern of stercoral colitis Abdominal exam comparable to yesterday, no evidence of perforated bowel GI to perform colonoscopy this afternoon, we will follow up on results Pt seen/examined with Dr. Tamayo Admission and Anticipated Discharge Date Admission Date: August 11, 2021 Supervising Physician Co-Signing Physician Notes I personally saw and evaluated the patient with Latanya Lynne PA-C and agree with the assessment and plan. 61 yo female with stercoral colitis versus LBO -Keep NPO/NGT -IV Zosyn -GI to perform scope today -She has no signs of ischemic bowel or perforation at this time -Will follow closely Subjective Patient says her abdominal pain remains the same, no better nor worse. She is passing flatus and having some BM's since prep started. Physical Exam Physical Exam: awake/alert Gastrointestinal (Abdomen): Percussion/Palpation: + abdomen tender (ttp in epigastric region and R abdomen) and abdomen soft NGT with dark brown output Results & Data ([facility]) Vital Signs (Past 12 Hours) Vital Signs Temp Pulse Pulse Resp BP Pulse Ox 08/13/21 08:09 36.7 C 95 H 18 159/81 H 94 08/13/21 07:24 100 H 08/13/21 03:50 36.8 C 91 H 18 173/96 H 94 PG Care Time/CCT Total # of Minutes Spent Total Time Spent with Patient: Total time spent is greater than 50% in coordination of care (as documented) at patient's floor/unit and/or counseling patient: Coding Level of Care Code 27234 Subseq Hosp Care Lvl 1 Diagnoses Large bowel obstruction K56.609
[2021-08-13] MEDS ORDERED: PROPOFOL IV EMULSION 10 MG/ML 20 ML VIAL IV ONE (13:48)
[2021-08-13] MEDS ORDERED: LIDOCAINE 2% 2 ML VIAL/AMP(20MG/ML) INFIL ONE (13:48)
--- NOTE | 2021-08-13 14:15 | GI REPORT ---
Patient Name: Edna Lopez Procedure Date: 08/13/2021 1:51 PM Date of : 1960 Admit Type: Inpatient Age: 61 Gender: Female Attending MD: Mike Israel MD Procedure: Colonoscopy Providers: Mike Israel MD Referring MD: Referred Basim Holland Indications: Abnormal CT of the GI tract Medicines: Monitored Anesthesia Care Complications: No immediate complications. Estimated blood loss: None. Estimated Blood Loss: Estimated blood loss: none. Procedure: Pre-Anesthesia Assessment: - Prior Anticoagulants: The patient has taken no previous anticoagulant or antiplatelet agents. - ASA Grade Assessment: II - A patient with mild systemic disease. After I obtained informed consent, the scope was passed under direct vision. Throughout the procedure, the patient's blood pressure, pulse, and oxygen saturations were monitored continuously. The Colonoscope was introduced through the anus with the intention of advancing to the cecum. The scope was advanced to the ascending colon before the procedure was aborted. Medications were given. The colonoscopy was performed without difficulty. The patient tolerated the procedure well. The quality of the bowel preparation was fair. Findings: An infiltrative and ulcerated completely obstructing large mass was found in the ascending colon. There were signs of moderate-severe colonic ischemia as a result as well in this area. Mass was biopsied with a cold forceps for histology. Unable to advance past fully obstructed part of the mass, procedure aborted in ascending colon. Impression: - Preparation of the colon was fair. 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 Biopsied. Recommendation: - Return patient to [facility] for [facility] care. - NPO today. continue NG tube to low intermittent suction. Urgent General surgery consultation for potential resection of mass and ischemic bowel. - Await pathology results. Mike Israel MD 08/13/2021 2:14:38 PM This report has been signed electronically. Note Initiated On: 08/13/2021 1:51 PM Number of Addenda: 0 I attest to the content of the Intraoperative Record and orders documented therein, exceptions below {[id number]}
--- NOTE | 2021-08-13 15:03 | Anesthesiology Progress Note ---
Date of Service August 13, 2021 Anesthesia Post Procedure Vital Signs Vital Signs: Temp Pulse Pulse Resp BP BP Pulse Ox 08/13/21 14:39 97 H 18 171/80 H 97 08/13/21 14:23 92 H 18 148/75 H 96 08/13/21 14:08 85 18 92/57 L 95 08/13/21 13:36 98.4 F 104 H 16 168/84 H 95 08/13/21 08:09 98.1 F 95 H 18 159/81 H 94 08/13/21 07:24 100 H 08/13/21 03:50 98.2 F 91 H 18 173/96 H 94 08/13/21 00:34 93 H 08/12/21 23:00 98.4 F 95 H 18 151/76 H 91 08/12/21 19:49 98.8 F 91 H 18 162/88 H 93 08/12/21 16:34 98.6 F 98 H 19 166/77 H 95 Pain Intensity Right Abdomen: Pain Intensity: 6 Head: Pain Intensity: 5 Transfer of Care Handoff Completed per policy Notes Mental Status: alert / awake / arousable and participated in evaluation Patient Amnestic to Procedure: Yes Nausea / Vomiting: adequately controlled Pain: adequately controlled Airway Patency, RR, SpO2: stable & adequate BP & HR: stable & adequate Hydration State: stable & adequate Anesthetic Complications: no major complications apparent and Pt Satisfied with anesthetic care
--- NOTE | 2021-08-13 16:13 | Anesthesiology Consultation ---
Date of Service August 13, 2021 Assessment & Plan Chart Review Chart Review: Acceptable Risk for Surgery and Patient NOT seen in Pre Admission Testing History Surgery Operation Date: 08/13/21 16:30 Proposed Procedures p Colonoscopy Dr. Jhonatan Israel MD Operation Date: 08/14/21 08:20 Proposed Procedures p Open Exploratory Laparotomy, Possible Bowel Resection, Possible Ostomy - Gavin Tamayo DO Height/Weight Height: 5 ft Weight: 87.9 kg Allergies Allergy/AdvReac Type Severity Reaction Status Date / Time No Known Allergies Allergy Unknown Verified 08/11/21 13:42 Medications Home Medications Medication Instructions Recorded Confirmed Last Taken aspirin 81 mg chewable tablet 1 tab PO HS tab 05/09/19 08/11/21 08/10/21 lancets 33 gauge (OneTouch Delica #100 ea 07/06/19 07/09/21 Unknown Lancets) blood sugar diagnostic (OneTouch #100 ea 04/09/21 07/09/21 Unknown Ultra Blue Test Strip) blood-glucose meter (OneTouch #1 ea 04/09/21 07/09/21 Unknown Ultra2 Meter) lancets 30 gauge (OneTouch Delica #100 ea 04/09/21 07/09/21 Unknown Plus Lancet) pen needle, diabetic 31 gauge x #100 ea 07/01/21 07/09/21 Unknown 02/17" (BD Ultra-Fine Short Pen Needle) dulaglutide 0.75 mg/0.5 mL 0.75 mg SUBCUT WK #2 ml 07/19/21 08/11/21 08/10/21 subcutaneous pen injector insulin glargine 100 unit/mL (3 See Rx Instructions SUBCUT QPM #15 07/19/21 08/11/21 08/10/21 mL) subcutaneous pen ml atorvastatin 10 mg tablet 10 mg PO HS 08/11/21 08/11/21 08/10/21 cholecalciferol (vitamin D3) 25 25 mcg PO QAM 08/11/21 08/11/21 08/10/21 mcg (1,000 unit) chewable tablet (Vitamin D3) hydrochlorothiazide 25 mg tablet 25 mg PO QAM 08/11/21 08/11/21 08/10/21 insulin lispro 100 unit/mL See Rx Instructions .ROUTE .COMPLEX 08/11/21 08/11/21 Unknown subcutaneous pen losartan 25 mg tablet 25 mg PO QAM 08/11/21 08/11/21 08/10/21 pantoprazole 40 mg tablet,delayed 40 mg PO QAM 08/11/21 08/11/21 08/10/21 release (Protonix) Active Medications Generic Name Dose Route Start Last Admin Trade Name Freq PRN Reason Stop Dose Admin Enoxaparin Sodium 40 mg 08/11/21 20:00 08/12/21 19:50 Enoxaparin Inj 40 Mg/0.4 Ml Syr SQ 09/10/21 19:59 40 mg Q24H SHANICE Administration Hydralazine HCl 10 mg 08/12/21 20:00 08/13/21 11:50 Hydralazine Hcl 20 Mg/Ml Vial IV 09/11/21 19:59 10 mg Q8H SHANICE Administration Hydromorphone HCl 0.25 mg 08/11/21 19:47 08/13/21 06:48 Hydromorphone Inj 0.5 Mg/0.5 Ml Syr IV 08/25/21 19:46 0.25 mg Q6H PRN Administration Pain Potassium Chloride/Sodium Chloride 20 meq in 1,000 mls @ 125 mls/hr 08/11/21 21:00 08/13/21 15:16 Normal Saline W/20 Meq Kcl IV 09/10/21 20:59 125 mls/hr .Q8H SHANICE Administration Piperacillin Sod/Tazobactam 120 mls @ 30 mls/hr 08/12/21 16:00 08/13/21 16:04 Sod 4.5 gm/ Dextrose IV 08/22/21 15:59 30 mls/hr Q8H SHANICE Administration Protocol Acetaminophen 1,000 mg in 100 mls @ 400 mls/hr 08/13/21 00:00 08/13/21 00:39 Ofirmev IV 08/16/21 00:00 Infused Q8H PRN Infusion TAYLOR/fever/pain Pantoprazole Sodium 40 mg/ 10 mls @ 5 mls/min 08/13/21 11:00 08/13/21 11:50 Syringe IV 09/12/21 10:59 5 mls/min BID SHANICE Administration Famotidine 20 mg/ Syringe 5 mls @ 2.5 mls/min 08/13/21 11:00 08/13/21 11:49 IV 09/12/21 10:59 2.5 mls/min BID SHANICE Administration Insulin Aspart 0 units 08/12/21 06:00 08/13/21 12:22 Insulin Aspart 100 Units/Ml 3 Ml Pen SC 09/10/21 20:59 1 units Q6 SHANICE Administration Insulin Glargine 10 units 08/11/21 21:00 08/13/21 11:01 Insulin Glargine Solostar 100 Units/Ml 3 Ml Pen SC 09/10/21 20:59 10 units BID SHANICE Administration Ondansetron HCl 4 mg 08/11/21 19:47 08/13/21 06:37 Ondansetron Inj 2 Mg/Ml 2 Ml Vial IV 09/10/21 19:46 4 mg Q6H PRN Administration Nausea Phenol 2 sprays 08/12/21 09:08 08/12/21 09:50 Chloraseptic 1.4% Soln 180 Ml Btl MT 09/11/21 09:07 2 sprays Q2H PRN Administration Sore Throat Sodium Biphosphate/Sodium Phosphate 132 ml 08/12/21 12:00 08/13/21 13:30 Sod Phosphate/Sod Biphosphate Enema 132 Ml Btl CA 08/13/21 23:59 Not Given Q4 SHANICE NPO Date Last Intake of Fluids: 08/10/21 Time Last Intake of Fluids: 19:00 Date Last Intake of Solids: 08/10/21 Time Last Intake of Solids: 19:00 Past Medical History Medical History Acid reflux Chronic back pain Depression DM type 2 (diabetes mellitus, type 2) IDDM History of hypertension PONV (postoperative nausea and vomiting) Slow to wake up after anesthesia Thyroid nodule Past Family History Family History Aunt Breast cancer Father Colorectal cancer patient thinks that the cancer may have been small bowel in location? Grandmother Ovarian cancer Other No family history of adverse response to anesthesia Denies family history of Prostate cancer Myocardial infarction Past Surgical History Surgical History History of arthroscopy of left knee History of carpal tunnel syndrome History of colonoscopy History of dilatation and curettage History of knee replacement Rt History of removal of cyst History of tubal ligation Status post rotator cuff repair Social History Smoking Status: Never smoker Hx Alcohol Use: Yes Alcohol type: beer alcohol intake frequency: a few times a month Hx Substance Use: No substance use type: does not use Physical Exam Vital Signs Last Vital Signs Temp 36.7 C 08/13/21 15:55 Pulse 85 08/13/21 15:55 Resp 18 08/13/21 15:55 BP 134/76 08/13/21 15:55 Pulse Ox 96 08/13/21 15:55 Testing Laboratory Results 08/13/21 07:44 08/13/21 07:44 PT 10.1 Seconds (9.0-12.0) 08/11/21 12:24 INR 1.0 (0.9-1.1) 08/11/21 12:24 APTT 23.9 Seconds (21.0-31.0) 08/11/21 12:24 Urine Color Yellow 08/11/21 16:04 Urine Appearance Clear (Clear) 08/11/21 16:04 Urine pH 5.0 (4.5-7.5) 08/11/21 16:04 Ur Specific [place] 1.029 (1.000-1.030) 08/11/21 16:04 Urine Protein Trace (Negative) H 08/11/21 16:04 Urine Glucose (UA) 3+ (Negative) H 08/11/21 16:04 Urine Ketones 2+ (Negative) H 08/11/21 16:04 Urine Nitrite Negative (Negative) 08/11/21 16:04 Ur Leukocyte Esterase Negative (Negative) 08/11/21 16:04 Urine WBC (Auto) 1-5 /hpf (0-5) 08/11/21 16:04 Urine RBC (Auto) 0-4 /hpf (0-4) 08/11/21 16:04 U Hyaline Cast (Auto) 1-5 /lpf (0-5) 08/11/21 16:04 U Epithel Cells (Auto) >30 /lpf (0-5) H 08/11/21 16:04 Urine Bacteria (Auto) Negative (Negative) 08/11/21 16:04 08/13/21 08/13/21 11:47 05:52 POC Glucose 172 H 177 H Electrocardiogram Date: 08/11/21 Normal sinus rhythm, rate 87 bpm Normal ECG When compared with ECG of 01-APR-2021 13:57, No significant change was found Confirmed by Bj Freire ([id number]) on 08/12/2021 11:59:13 AM Chest X-Ray Date: 08/11/21 IMPRESSION: Tip of nasogastric tube within the distal body of the stomach. Echocardiogram Date: 07/30/21 Normal LV size with hyperdynamic systolic function. EF > 70%. No regional wall motion abnormalities. No LVH No significant valvular abnormalities No significant change from prior study on 04/11/2008.
[2021-08-14] MEDS: CHLORASEPTIC 1.4% SOLN 180 ML BTL MT PRN (00:07)
[2021-08-14] MEDS: INSULIN ASPART 100 UNITS/ML 3 ML PEN SC SCH ×4 (00:13→18:28)
[2021-08-14] MEDS: ACETAMINOPHEN 1,000 MG/100 ML VIAL IV PRN (01:39)
[2021-08-14] MEDS: hydrALAZINE HCL 20 MG/ML VIAL IV SCH ×3 (04:52→22:00)
[2021-08-14 06:30] LABS: Basophils # (auto) 0.02 K/uL (0-0.2); Basophils % (auto) 0.2 %; Eosinophils # (auto) 0.11 K/uL (0-0.5); Eosinophils % (auto) 0.9 %; Hematocrit (blood only) 31.6 % (37-47); Hemoglobin 9.5 g/dL (12.0-16.0); Immature Granulocytes # (auto) 0.04 K/uL (0.00-0.02); Immature Granulocytes % (auto) 0.3 %; Lymphocytes # (auto) 1.22 K/uL (1.2-3.4); Lymphocytes % (auto) 9.6 %; Mean Corpuscular Hemoglobin 24.4 pg (25-34); Mean Corpuscular Hgb Conc 30.1 g/dL (32-36); Mean Platelet Volume 8.3 fL (7.4-10.4); Monocytes # (auto) 1.04 K/uL (0.11-0.59); Monocytes % (auto) 8.2 %; Neutrophils # (auto) 10.32 K/uL (1.4-6.5); Neutrophils % (auto) 80.8 %; Platelet Count 360 K/uL (130-400); RDW Coefficient of Variation 15.3 % (11.5-14.5); RDW Standard Deviation 45.1 fL (36.4-46.3); White Blood Count 12.75 K/uL (4.8-10.8)
[2021-08-14 07:22] LABS: BUN Creatinine Ratio 19.3 (10-20); Calcium 8.7 mg/dl (8.5-10.1); Creatinine Clr Calc Pharmacy 116.3 ml/min; Est GFR (African American) 121.1 ml/min; Est GFR (Non-African American) 104.5 ml/min
--- NOTE | 2021-08-14 07:58 | Surgery Progress Note ---
Date of Service August 14, 2021 Assessment & Plan (1) Large bowel obstruction: Plan: -Discussed colonoscopy results with GI and patient -Likely malignant obstructing tumor in ascending colon -Will plan on exploratory laparotomy, right hemicolectomy, possible ostomy -Consent obtained, risks discussed including bleeding, infection, injury to nearby structures, anastomotic leak Admission and Anticipated Discharge Date Admission Date: August 11, 2021 Subjective Pt seen and examined. Pain similar to yesterday. No N/V. No fevers. No acute events overnight. Review of Systems Constitutional: no fever and no chills Physical Exam Constitutional: WD/WN, vitals as above Gastrointestinal (Abdomen): Percussion/Palpation: + abdomen tender (ttp in epigastric region and R abdomen) and abdomen soft NGT with dark brown output Results & Data ([facility]) Vital Signs (Past 12 Hours) Vital Signs Temp Pulse Resp BP BP Pulse Ox 08/14/21 07:40 36.8 C 88 18 151/80 H 94 08/14/21 04:00 37.0 C 91 H 18 123/72 94 08/13/21 23:07 37.1 C 90 18 143/72 H 95 Laboratory Results Findings: An infiltrative and ulcerated completely obstructing large mass was found in the ascending colon. There were signs of moderate-severe colonic ischemia as a result as well in this area. Mass was biopsied with a cold forceps for histology. Unable to advance past fully obstructed part of the mass, procedure aborted in ascending colon. PG Care Time/CCT Total # of Minutes Spent Total Time Spent with Patient: Total time spent is greater than 50% in coordination of care (as documented) at patient's floor/unit and/or counseling patient: Coding Level of Care Code 79868 Subseq Hosp Care Lvl 2 Diagnoses Large bowel obstruction K56.609
[2021-08-14 08:03] LABS: Potassium 3.2 mmol/L (3.5-5.1)
[2021-08-14 08:04] LABS: Magnesium 2.2 mg/dl (1.8-2.4)
[2021-08-14] MEDS ORDERED: PROPOFOL IV EMULSION 10 MG/ML 20 ML VIAL IV ONE (08:12)
[2021-08-14] MEDS ORDERED: ROCURONIUM BROMIDE 10 MG/ML 5 ML VIAL IV ONE (08:12)
[2021-08-14] MEDS ORDERED: fentaNYL citrate 100 MCG/2 ML VIAL ONE (08:12)
[2021-08-14] MEDS ORDERED: MIDAZOLAM HCL 1 MG/ML 2ML VIAL ONE (08:12)
[2021-08-14] MEDS ORDERED: LIDOCAINE 2% 2 ML VIAL/AMP(20MG/ML) INFIL ONE (08:12)
[2021-08-14] MEDS ORDERED: ONDANSETRON INJ 2 MG/ML 2 ML VIAL ONE ×2 (08:12→11:20)
[2021-08-14] MEDS ORDERED: BUPIVACAINE LIPOSOME 1.3% 266 MG/20 ML VIAL ONE (08:22)
[2021-08-14] MEDS ORDERED: BUPIVACAINE 0.5 % 5 MG/1 ML PF 10ML VIAL ONE (08:26)
[2021-08-14] MEDS ORDERED: ATROPINE SULFATE 0.1 MG/ML 10ML SYR IV PRN (08:44)
[2021-08-14] MEDS ORDERED: ONDANSETRON INJ 2 MG/ML 2 ML VIAL IV PRN (08:44)
[2021-08-14] MEDS ORDERED: PROMETHAZINE HCL 6.25 MG in SODIUM CHLORIDE 0.9% 50 ML IV PRN (08:44)
[2021-08-14] MEDS ORDERED: KETOROLAC TROMETHAMINE 15 MG/ML VIAL IV PRN (08:44)
[2021-08-14] MEDS ORDERED: PHENYLEPHRINE 100MCG/ML 5ML SYR ONE (10:40)
[2021-08-14] MEDS ORDERED: PHENYLEPHRINE HCL 10 MG/ML VIAL ONE (10:40)
[2021-08-14] MEDS ORDERED: NEOSTIGMINE METHYLSULFATE 1 MG/ML 10ML VIAL ONE (11:20)
[2021-08-14] MEDS ORDERED: GLYCOPYRROLATE 0.2 MG/ML VIAL ONE (11:20)
--- NOTE | 2021-08-14 11:55 | Post Operative Brief Note ---
PG Immediate Post Op with CF Date of Surgery August 14, 2021 Pre & Post Diagnosis Operation Date: 08/14/21 08:20 Pre-Op Diagnosis: Large bowel obstruction Post-Op Diagnosis: Large bowel obstruction I identified the patient and participated in the time-out.: Yes Procedure Operation Date: 08/14/21 08:20 Actual Procedures p Exploratory Laparotomy, Right Hemicolectomy, Partial Omentectomy - Gavin Tamayo DO Surgeon Gavin Tamayo DO Damage Adjuster Brayden Chiu PA-C Estimated Blood Loss 25 Findings See Below Distended cecum and ascending colon with mild ischemic changes, no perforation Specimens Specimen Description: A: Right Colon B: Omentum Anesthesia Type General Complications none Disposition Disposition: Recovery Room
[2021-08-14] MEDS: HYDROmorphone INJ 1 MG/ML SYRINGE IV PRN ×8 (11:58→12:33)
[2021-08-14] MEDS ORDERED: KETOROLAC 30 MG/ML VIAL ONE (12:34)
[2021-08-14] MEDS ORDERED: HYDROmorphone INJ 0.5 MG/0.5 ML SYR IV PRN (12:47)
--- NOTE | 2021-08-14 13:47 | Anesthesiology Progress Note ---
Date of Service August 14, 2021 Anesthesia Post Procedure Vital Signs Vital Signs: Temp Pulse Pulse Resp BP BP Pulse Ox 08/14/21 13:00 36.4 C L 81 14 117/50 L 98 08/14/21 12:50 83 15 124/55 L 99 08/14/21 12:40 85 14 122/54 L 92 08/14/21 12:30 87 15 130/54 L 92 08/14/21 12:20 86 14 146/67 H 97 08/14/21 12:10 84 12 148/76 H 100 08/14/21 12:00 85 12 150/68 H 99 08/14/21 11:51 36.3 C L 86 15 150/72 H 100 08/14/21 08:05 36.6 C 93 H 18 152/74 H 96 08/14/21 07:40 36.8 C 88 18 151/80 H 94 08/14/21 04:00 37.0 C 91 H 18 123/72 94 08/13/21 23:07 37.1 C 90 18 143/72 H 95 08/13/21 19:00 37.0 C 94 H 18 150/69 H 94 08/13/21 15:55 36.7 C 85 18 134/76 96 08/13/21 14:39 97 H 18 171/80 H 97 08/13/21 14:23 92 H 18 148/75 H 96 08/13/21 14:08 85 18 92/57 L 95 Pain Intensity Right Abdomen: Pain Intensity: 6 Head: Pain Intensity: 5 Abdomen: Pain Intensity: 3 Transfer of Care Handoff Completed per policy Notes Mental Status: alert / awake / arousable Patient Amnestic to Procedure: Yes Nausea / Vomiting: adequately controlled Pain: adequately controlled Airway Patency, RR, SpO2: stable & adequate BP & HR: stable & adequate Hydration State: stable & adequate Anesthetic Complications: no major complications apparent
[2021-08-14] MEDS: NSS + 20MEQ KCL 20 MEQ/1,000 ML BAG IV SCH ×2 (14:24→14:29)
[2021-08-14] MEDS: PIPERACILLIN/TAZOBACTAM 4.5 GM in DEXTROSE 5% 100 ML IV SCH ×3 (14:24→23:56)
[2021-08-14] MEDS: INSULIN GLARGINE SOLOSTAR 100 UNITS/ML 3 ML PEN SC SCH ×2 (14:25→22:29)
[2021-08-14] MEDS: FAMOTIDINE 20 MG in SYRINGE 3 ML IV SCH ×2 (14:25→22:03)
[2021-08-14] MEDS: PANTOprazole 40 MG in SYRINGE 0 ML IV SCH ×2 (14:25→19:45)
--- NOTE | 2021-08-14 15:30 | Operative Report ---
PG Post Operative Report Pre & Post Diagnosis Operation Date: 08/14/21 08:20 Pre-Op Diagnosis: Large bowel obstruction Post-Op Diagnosis: Large bowel obstruction I identified the patient and participated in the time-out.: Yes Procedure Operation Date: 08/14/21 08:20 Actual Procedures p Exploratory Laparotomy, Right Hemicolectomy, Partial Omentectomy - Gavin Tamayo DO Surgeon Gavin Tamayo DO Apparel Stock Checker Brayden Chiu PA-C Estimated Blood Loss 25 Findings See Below Distended cecum and ascending colon with mild ischemic changes, no perforation Normal appearing liver Specimens Right colon and omentum to pathology Drains None Anesthesia Type General Complications none Disposition Disposition: Recovery Room Indications 61 yo female with large bowel obstruction secondary to obstructing mass Description of Procedure The patient was brought to the OR and placed in the supine position with both arms abducted. At this time she underwent general endotracheal anesthesia without any problems. She was given appropriate pre-operative antibiotics. Her abdomen was prepped and draped in the usual sterile fashion. Timeout was called. The procedure was verified as Exploratory laparotomy, possible bowel resection, possible ostomy. Surgical, anesthesia and nursing teams agreed and the procedure was begun. A standard midline incision was made using a #10 blade scalpel. This was carried down to the fascia using electrocautery. The midline fascia was then incised with electrocautery. The peritoneum was then entered bluntly. The incision was then opened up through its entirety. Bookwalter retractor was placed. The cecum was immediately visualized and was distended with some areas of serosal ischemia noted without any signs of perforation. The right colon was mobilized laterally along the line of Toldt all the way up to the hepatic flexure. The duodenum was visualized and swept posteriorly. There were adhesions from the colon to the liver that were lysed sharply. The omentum was then mobilized off of the transverse colon in preparation for our transection point. Once the right colon was adequately mobilized, a dense mass could be felt in the mid ascending colon. This was thought to be the area of obstruction. The transverse colon was then transected using a LONNIE 80mm blue load stapler just proximal to the left branch of the middle colic vessels. The terminal ileum was transected using a LONNIE 80mm blue load stapler at a point about 10cm proximal to the IC valve. The mesentery was then taken using Ligasure device. The specimen was extracted and passed off as specimen. We then turned out attention to the anastomosis. This was done in a side to side fashion using a LONNIE 80mm blue load stapler. The resulting common enterotomy was closed with another fire of the LONNIE 80mm blue load stapler. The staple line was oversewn in a Lembert fashion using 3-0 Silk suture. The resulting mesenteric defect was closed using a running 3-0 Vicryl suture. At this point the small bowel was eviscerated and ran from Ligament of Treitz to the anastomosis. There was no ischemic changes noted. The bowel was of normal caliber. The entire colon was then inspected and found to be free of pathology. The liver was palpated and appeared smooth without any lesions. At this point the wound was then irrigated until clear. Hemostasis was achieved using electrocautery. Hemostasis was complete. The fascia was then closed in a running fashion using 2 #1 looped PDS suture starting superiorly and inferiorly and meeting in the middle. Skin was closed with katina. Sterile dressing was applied. All needle and sponge counts were correct x 2. At this point the patient was awakened from anesthesia, and transported to PACU in stable condition. The physician's plumber's assistant was present and scrubbed for the entirety of the case. He was critical in positioning the patient, prepping and draping, retraction and exposure, closure of the incision and placement of the dressings. I attest to the content of the Intraoperative Record and any orders documented therein. Any exceptions are noted below.
--- NOTE | 2021-08-14 16:17 | Hospitalist Progress Note ---
Date of Service August 14, 2021 Assessment & Plan (1) Large bowel obstruction: Plan: Admitted 08/11 with abdominal pain and found to have large bowel obstruction with associated leukocytosis CT of the abdomen and pelvis showed questionable colonic lesion and mass could not be ruled out Patient was placed empirically on antibiotic therapy (due to associated leuko cytosis of 16,000 and risk for infectious process) and NGT advanced LIS Patient had really no clinical response GI and general surgery consulted Patient had Fleet enema in preparation for colonoscopy Colonoscopy performed on 08/13 showing large and nearly obstructing mass in the ascending colon with associated moderate to severe colonic ischemia. General surgery was notified and patient was taken to the operating room on 07/15 for right hemicolectomy and omentectomy Per report, no obvious source of metastatic process that can be seen via exploratory laparotomy or CT scan; however, patient will need referred to oncology once pathology available for staging CEA level drawn: 4.5 Continue NG tube at low to intermittent suction and n.p.o. status until further recommendations per general surgery Chloride starting to uptrend. Will transition normal saline to lactated Ringer's to help replace GI losses from NGT (2) Colonic mass: Plan: Highly suspicious for malignancy S/p biopsy and partial colon resection. Pathology report pending We will need referred to oncology which can be done as an outpatient (3) Hypokalemia: Plan: Provide additional K riders today (4) Hypertension: Plan: IV hydralazine on board BP was elevated precolon resection but appears to be controlled at present (may have been pain related) Continue to hold oral medications until p.o. intake initiated (5) Depression: Plan: Oral meds remain on hold due to n.p.o. status (6) GERD (gastroesophageal reflux disease): Plan: Patient did have blood seen in NG canister but H&H has remained stable Patient is on IV Protonix and Pepcid for GI prophylaxis Plan: Patient was on Lovenox for DVT prophylaxis; however, stopped 08/13 due to blood seen in NGT canister Again H&H stable. Encourage ambulation and continue compression stockings Admission and Anticipated Discharge Date Admission Date: August 11, 2021 Subjective Patient seen on daily rounds today. She is s/p partial hemicolectomy with end-to-end anastomoses for a sending colonic mass causing complete obstruction. Tolerated the procedure well. Currently voices no complaints or concerns. Denies fevers, chills, chest pain, shortness of breath, abdominal pain, nausea or vomiting. Review of Systems Review of Systems: All systems reviewed and are unremarkable except as noted in HPI and below Denies fevers, chills, headache, nasal congestion, sore throat, cough, chest pain, shortness of breath, palpitations, orthopnea, PND, abdominal pain, nausea, vomiting, diarrhea, constipation, dysuria, hematuria, frequency, back pain, joint pain or swelling, easy bruising or bleeding, skin lesions or rashes. Physical Exam Physical Exam: General: Resting comfortably in her hospital bed. NAD. HEENT: Head is AT/NC buccal mucosa is moist and pink Neck: No JVD. Negative hepatojugular reflex Cardiac: RRR without M/G/R Lungs: CTA without W/R/R Abdomen: Hypoactive X4 but abdomen soft. Binder in place. Not significantly tender at present Extremities: No peripheral clubbing cyanosis or edema Neuro: A&O X4 cranial nerves II through XII are grossly intact no focal neuro deficits Skin: No obvious skin lesions or rashes Psych: Appropriate affect pleasant and cooperative Results & Data Results & Data ([facility]) Vital Signs (Past 12 Hours) Vital Signs Temp Pulse Pulse Resp BP BP Pulse Ox 08/14/21 13:00 36.4 C L 81 14 117/50 L 98 08/14/21 12:50 83 15 124/55 L 99 08/14/21 12:40 85 14 122/54 L 92 08/14/21 12:30 87 15 130/54 L 92 08/14/21 12:20 86 14 146/67 H 97 08/14/21 12:10 84 12 148/76 H 100 08/14/21 12:00 85 12 150/68 H 99 08/14/21 11:51 36.3 C L 86 15 150/72 H 100 08/14/21 08:05 36.6 C 93 H 18 152/74 H 96 08/14/21 07:40 36.8 C 88 18 151/80 H 94 Laboratory Results 08/14/21 06:07 08/14/21 07:28 PG Care Time/CCT Total # of Minutes Spent Total Time Spent with Patient: Total time spent is greater than 50% in coordination of care (as documented) at patient's floor/unit and/or counseling patient: Coding Level of Care Code 48604 Subseq Hosp Care Lvl 2 Diagnoses Colonic mass K63.89 Large bowel obstruction K56.609 Hypertension I10 Hypertension type: essential hypertension Depression F33.1 Active/Remission status: currently active Depression Type: major depressive disorder Major depression episode severity: moderate Major depression recurrence: recurrent GERD (gastroesophageal reflux disease) K21.9 Hypokalemia E87.6 (1) Depression Active/Remission status: currently active Depression Type: major depressive disorder Major depression episode severity: moderate Major depression recurrence: recurrent Qualified Code(s): F33.1 - Major depressive disorder, recurrent, moderate (2) Hypertension Hypertension type: essential hypertension Qualified Code(s): I10 - Essential (primary) hypertension
[2021-08-14] MEDS: LACTATED RINGER'S 1,000 ML IV SCH (17:05)
[2021-08-14] MEDS: HYDROmorphone INJ 0.5 MG/0.5 ML SYR IV PRN ×4 (17:10→23:57)
[2021-08-14] MEDS: POTASSIUM ACETATE/NSS 10 MEQ/105 ML BAG IV SCH ×2 (18:28→19:44)
[2021-08-15] MEDS: INSULIN ASPART 100 UNITS/ML 3 ML PEN SC SCH ×4 (00:16→18:24)
[2021-08-15] MEDS ORDERED: D5W AND LACTATED RINGERS 1,000 ML IV SCH (00:30)
[2021-08-15] MEDS: ACETAMINOPHEN 1,000 MG/100 ML VIAL IV PRN (00:57)
[2021-08-15] MEDS: HYDROmorphone INJ 0.5 MG/0.5 ML SYR IV PRN ×5 (03:33→22:17)
[2021-08-15] MEDS: LACTATED RINGER'S 1,000 ML IV SCH (03:59)
[2021-08-15] MEDS: hydrALAZINE HCL 20 MG/ML VIAL IV SCH ×3 (04:00→19:43)
--- NOTE | 2021-08-15 09:00 | Surgery Progress Note ---
Date of Service August 15, 2021 Assessment & Plan (1) Colonic mass: Plan: POD 1 right colectomy can have sips, clears tomorrow if doing ok OOB, I.S. resume Lovenox seen with Dr. Tamayo Admission and Anticipated Discharge Date Admission Date: August 11, 2021 Supervising Physician Co-Signing Physician Notes I personally saw and evaluated the patient with Brayden Chiu PA-C and agree with the assessment and plan 61 yo female POD#1 Ex lap, R hemicolectomy, partial omentectomy for LBO -Remove NGT -Start sips/chips -Remove Morris -DVT prophylaxis -Encourage ambulation/IS Subjective no nausea, pain controlled with block/Tylenol Physical Exam Gastrointestinal (Abdomen): Inspection/Auscultation: + abdominal surgical incision (dressing in place); abdomen not distended Results & Data ([facility]) Vital Signs (Past 12 Hours) Vital Signs Temp Pulse Resp BP Pulse Ox 08/15/21 07:06 37.4 C 84 16 113/65 95 08/15/21 03:32 36.9 C 80 16 113/66 95 08/14/21 23:17 37.7 C H 89 18 115/82 96 08/14/21 22:05 150/76 H PG Care Time/CCT Total # of Minutes Spent Total Time Spent with Patient: Total time spent is greater than 50% in coordination of care (as documented) at patient's floor/unit and/or counseling patient: Coding Level of Care Code None Diagnoses Colonic mass K63.89
[2021-08-15 09:19] LABS: Basophils # (auto) 0.02 K/uL (0-0.2); Basophils % (auto) 0.2 %; Eosinophils # (auto) 0.13 K/uL (0-0.5); Eosinophils % (auto) 1.1 %; Hematocrit (blood only) 27.3 % (37-47); Hemoglobin 8.6 g/dL (12.0-16.0); Immature Granulocytes # (auto) 0.02 K/uL (0.00-0.02); Immature Granulocytes % (auto) 0.2 %; Lymphocytes # (auto) 0.73 K/uL (1.2-3.4); Lymphocytes % (auto) 6.1 %; Mean Corpuscular Hemoglobin 25.3 pg (25-34); Mean Corpuscular Hgb Conc 31.5 g/dL (32-36); Mean Corpuscular Volume 80.3 fL (80-100); Mean Platelet Volume 8.4 fL (7.4-10.4); Monocytes # (auto) 1.08 K/uL (0.11-0.59); Monocytes % (auto) 9.1 %; Neutrophils % (auto) 83.3 %; Nucleated RBC # (auto) 0.02 K/uL (0-0); Nucleated RBC % (auto) 0.2 %; Platelet Count 300 K/uL (130-400); RDW Coefficient of Variation 15.4 % (11.5-14.5); White Blood Count 11.88 K/uL (4.8-10.8)
[2021-08-15] MEDS: PIPERACILLIN/TAZOBACTAM 4.5 GM in DEXTROSE 5% 100 ML IV SCH (09:21)
[2021-08-15] MEDS: FAMOTIDINE 20 MG in SYRINGE 3 ML IV SCH ×2 (09:27→20:44)
[2021-08-15] MEDS: INSULIN GLARGINE SOLOSTAR 100 UNITS/ML 3 ML PEN SC SCH ×2 (09:27→20:58)
[2021-08-15] MEDS: PANTOprazole 40 MG in SYRINGE 0 ML IV SCH ×2 (09:28→20:43)
[2021-08-15 09:55] LABS: BUN Creatinine Ratio 19.3 (10-20); Calcium 8.3 mg/dl (8.5-10.1); Creatinine Clr Calc Pharmacy 107.8 ml/min; Est GFR (African American) 118.2 ml/min; Est GFR (Non-African American) 101.9 ml/min; Potassium 3.2 mmol/L (3.5-5.1)
--- NOTE | 2021-08-15 16:33 | Hospitalist Progress Note ---
Date of Service August 15, 2021 Assessment & Plan (1) Large bowel obstruction: Plan: Admitted 08/11 with abdominal pain and found to have large bowel obstruction with associated leukocytosis CT of the abdomen and pelvis showed questionable colonic lesion and mass could not be ruled out Patient was placed empirically on antibiotic therapy (due to associated leuko cytosis of 16,000 and risk for infectious process) and NGT advanced LIS Patient had really no clinical response GI and general surgery consulted Patient had Fleet enema in preparation for colonoscopy Colonoscopy performed on 08/13 showing large and nearly obstructing mass in the ascending colon with associated moderate to severe colonic ischemia. Had right hemicolectomy and omentectomy with end-to-end anastomoses on 08/14. No perioperative complications Per report, no obvious source of metastatic process that can be seen via exploratory laparotomy or CT scan; however, patient will need referred to oncology once pathology available for staging CEA level drawn: 4.5 Has since had NGT removed (per general surgery) and was started on ice chips with popsicles sparingly. Oral intake at discretion of general surgery Chloride started to uptrend in her IVF was transitioned to D5 LR (to help replace loss from NGT). Chloride improving (2) Colonic mass: Plan: Highly suspicious for malignancy S/p biopsy and partial colon resection. Pathology report pending We will need referred to oncology which can be done as an outpatient (3) Hypokalemia: Plan: Supplemented and resolved (4) Hypertension: Plan: IV hydralazine on board BP was elevated pre-colon resection but appears to be controlled at present (may have been pain related) Continue to hold oral medications until p.o. intake initiated BP acceptable currently (5) Depression: Plan: Oral meds remain on hold due to n.p.o. status (6) GERD (gastroesophageal reflux disease): Plan: Patient did have blood seen in NG canister but H&H has remained stable Patient is on IV Protonix and Pepcid for GI prophylaxis Plan: Patient was on Lovenox for DVT prophylaxis; however, stopped 08/13 due to blood seen in NGT canister On NGT since removed. Resume Lovenox for DVT prophylaxis Admission and Anticipated Discharge Date Admission Date: August 11, 2021 Subjective Patient seen on daily rounds today. Overall she denies deep abdominal pain. The only pain that she is having is incisional pain. Otherwise, denies any nausea or vomiting. Not yet passing flatus. Seen by general surgery this morning and has since had NG tube removed and was ordered ice chips and a popsicle. Review of Systems Review of Systems: All systems reviewed and are unremarkable except as noted in HPI and below Denies fevers, chills, headache, nasal congestion, sore throat, cough, chest pain, shortness of breath, palpitations, orthopnea, PND, abdominal pain, nausea, vomiting, diarrhea, constipation, dysuria, hematuria, frequency, back pain, joint pain or swelling, easy bruising or bleeding, skin lesions or rashes. Physical Exam Physical Exam: General: Resting comfortably in her hospital bed. Does not appear ill or toxic NAD. HEENT: Head is AT/NC buccal mucosa is moist and pink Neck: No JVD. Negative hepatojugular reflex Cardiac: RRR with 2/6 VERONICA (that was not appreciated yesterday but I suspect this is due to the sound of NGT with LIS) Lungs: CTA without W/R/R Abdomen: Abdomen is nondistended. Abdominal binder in place. Hypoactive BS X4. Abdomen is soft and tender to palpation of the incision site but no deep tenderness Extremities: No peripheral clubbing cyanosis or edema Neuro: A&O X4 cranial nerves II through XII are grossly intact no focal neuro deficits Skin: No obvious skin lesions or rashes Psych: Appropriate affect pleasant and cooperative Results & Data Results & Data ([facility]) Vital Signs (Past 12 Hours) Vital Signs Temp Pulse Resp BP BP Pulse Ox 08/15/21 07:06 37.4 C 84 16 113/65 95 Laboratory Results 08/15/21 08:56 08/15/21 08:56 PG Care Time/CCT Total # of Minutes Spent Total Time Spent with Patient: Total time spent is greater than 50% in coordination of care (as documented) at patient's floor/unit and/or counseling patient: Coding Level of Care Code 60122 Subseq Hosp Care Lvl 2 Diagnoses Large bowel obstruction K56.609 Colonic mass K63.89 Hypokalemia E87.6 Hypertension I10 Hypertension type: essential hypertension Depression F33.1 Active/Remission status: currently active Depression Type: major depressive disorder Major depression episode severity: moderate Major depression recurrence: recurrent GERD (gastroesophageal reflux disease) K21.9 (1) Depression Active/Remission status: currently active Depression Type: major depressive disorder Major depression episode severity: moderate Major depression recurrence: recurrent Qualified Code(s): F33.1 - Major depressive disorder, recurrent, moderate (2) Hypertension Hypertension type: essential hypertension Qualified Code(s): I10 - Essential (primary) hypertension
[2021-08-15] MEDS: POTASSIUM CHLORIDE / WTR 10 MEQ/100 ML PLCT IV SCH ×3 (18:25→20:43)
[2021-08-15] MEDS: ENOXAPARIN INJ 40 MG/0.4 ML SYR SQ SCH (19:39)
[2021-08-16] MEDS: INSULIN ASPART 100 UNITS/ML 3 ML PEN SC SCH ×5 (00:24→21:08)
[2021-08-16] MEDS: HYDROmorphone INJ 0.5 MG/0.5 ML SYR IV PRN (02:26)
[2021-08-16] MEDS: hydrALAZINE HCL 20 MG/ML VIAL IV SCH (04:59)
--- NOTE | 2021-08-16 08:12 | Surgery Progress Note ---
Date of Service August 16, 2021 Assessment & Plan (1) Colonic mass: Plan: POD#2 exlap, R hemicolectomy for colonic mass Patient is feeling well, pain is manageable. Denies nausea/vomiting. Passing flatus Will start patient on clear liquids today Continue ambulation, IS Will change abdominal dressing later today Admission and Anticipated Discharge Date Admission Date: August 11, 2021 Supervising Physician Co-Signing Physician Notes I personally saw and evaluated the patient with Latanya Lynne PA-C and agree with the assessment and plan 61 yo female POD#2 Ex lap, R hemicolectomy, partial omentectomy for LBO -Start clears -Dressing removed, dry gauze dressing PRN -She had a low grade fever, if continues would higgins culture, CXR shows some atelectasis and fluid overload -DVT prophylaxis -Encourage ambulation/IS Subjective Patient is feeling well. Rates her belly pain a 3/10. She is passing flatus, no BM yet. Denies nausea/vomiting. Physical Exam Physical Exam: awake/alert Gastrointestinal (Abdomen): Inspection/Auscultation: + abdominal surgical incision (dressing c/d/i); abdomen not distended Percussion/Palpation: abdomen soft; abdomen nontender Results & Data ([facility]) Vital Signs (Past 12 Hours) Vital Signs Temp Pulse Pulse Resp BP BP Pulse Ox 08/16/21 07:36 37.0 C 89 20 119/61 90 08/16/21 04:58 86 124/71 95 08/15/21 23:59 90 08/15/21 23:19 36.4 C L 81 16 116/62 93 08/15/21 21:09 94 H PG Care Time/CCT Total # of Minutes Spent Total Time Spent with Patient: Total time spent is greater than 50% in coordination of care (as documented) at patient's floor/unit and/or counseling patient: Coding Level of Care Code None Diagnoses Colonic mass K63.89
[2021-08-16 08:19] LABS: Basophils # (auto) 0.02 K/uL (0-0.2); Basophils % (auto) 0.1 %; Eosinophils # (auto) 0.16 K/uL (0-0.5); Eosinophils % (auto) 1.2 %; Hematocrit (blood only) 25.8 % (37-47); Hemoglobin 7.7 g/dL (12.0-16.0); Immature Granulocytes # (auto) 0.05 K/uL (0.00-0.02); Immature Granulocytes % (auto) 0.4 %; Lymphocytes % (auto) 7.3 %; Mean Corpuscular Hemoglobin 24.4 pg (25-34); Mean Corpuscular Hgb Conc 29.8 g/dL (32-36); Mean Corpuscular Volume 81.9 fL (80-100); Mean Platelet Volume 8.3 fL (7.4-10.4); Monocytes # (auto) 1.14 K/uL (0.11-0.59); Monocytes % (auto) 8.4 %; Neutrophils # (auto) 11.27 K/uL (1.4-6.5); Neutrophils % (auto) 82.6 %; Platelet Count 300 K/uL (130-400); RDW Coefficient of Variation 15.7 % (11.5-14.5); Red Blood Count 3.15 M/uL (4.2-5.4); White Blood Count 13.64 K/uL (4.8-10.8)
[2021-08-16 08:34] LABS: RBC Morphology Unremarkable
[2021-08-16] MEDS: PANTOprazole 40 MG in SYRINGE 0 ML IV SCH (08:36)
[2021-08-16] MEDS: INSULIN GLARGINE SOLOSTAR 100 UNITS/ML 3 ML PEN SC SCH ×2 (08:37→21:08)
[2021-08-16] MEDS: FAMOTIDINE 20 MG in SYRINGE 3 ML IV SCH (08:39)
[2021-08-16 08:48] LABS: BUN Creatinine Ratio 16.5 (10-20); Calcium 8.5 mg/dl (8.5-10.1); Creatinine Clr Calc Pharmacy 116.3 ml/min; Est GFR (African American) 121.1 ml/min; Est GFR (Non-African American) 104.5 ml/min; Magnesium 2.2 mg/dl (1.8-2.4); Potassium 3.2 mmol/L (3.5-5.1)
[2021-08-16] MEDS ORDERED: FUROSEMIDE INJ 20 MG/2 ML VIAL IV ONE ×2 (10:38→16:00)
[2021-08-16] MEDS ORDERED: ALBUT/IPRATROP 3MG/0.5MG NEB 3 ML VIAL NEB PRN (10:40)
--- NOTE | 2021-08-16 10:42 | Hospitalist Progress Note ---
Date of Service August 16, 2021 Assessment & Plan (1) Large bowel obstruction: Plan: Admitted 08/11 with abdominal pain and found to have large bowel obstruction with associated leukocytosis CT of the abdomen and pelvis showed questionable colonic lesion and mass could not be ruled out Patient was placed empirically on antibiotic therapy (due to associated leukocytosis of 16,000 and risk for infectious process) and NGT advanced LIS Patient had really no clinical response GI and general surgery consulted Patient had Fleet enema in preparation for colonoscopy Colonoscopy performed on 08/13 showing large and nearly obstructing mass in the ascending colon with associated moderate to severe colonic ischemia. s/p right hemicolectomy and omentectomy with end-to-end anastomoses on 08/14. No perioperative complications Per report, no obvious source of metastatic process that can be seen via exploratory laparotomy or CT scan; however, patient will need referred to oncology once pathology available for staging CEA level drawn: 4.5 - WBC has normalized and abx stopped (as was thought to be reactive from ischemic bowel)--> 08/16 WBC uptrending (see below) evening of 08/14--> NGT removed (per general surgery) - 08/15- started on ICE chips/popsicle Chloride started to uptrend in her IVF was transitioned to D5 LR (to help replace loss from NGT). Chloride improving - 08/16--> denies abd pain, N/V and is passing flatus. Did have large liquid BM. Has since been started on Clear liquis per general surgery - STOP IVF at this time as tolerating clears PO and fluid balance very positive at this time (2) Colonic mass: Plan: pathology reports confirms adenocarcinoma S/p partial colon resection. We will need referred to oncology which can be done as an outpatient (needs staging) (3) Hypokalemia: Plan: continue supplementation (change to liquid/oral as not improving with IV and now on PO intake) (4) Leukocytosis: Plan: - patient feels great and denies respiratory/GI/ symptoms - she has been requiring 2L supplemental O2 since surgery - also has associated low grade fever (100.2 this am) - uncertain if this is latent reaction from surgery or underlying infectious/persistent ischemic process - hold off on abx at this time - obtain CXR, UA with micro/ C&S and continue to follow clinically - low threshold to repeat CT of A/P (5) Low grade fever: Plan: - ? atelectasis vs underlying infectious process - see above - pt admits that she is NOT using the IS as often as she needs to. Reiterated importance of this - obtain CXR/UA with C&S - follow (6) Hypoxemia: Plan: - see above-- ? atelectasis - There very well could be a component of volume overload (although no significant SOB) - encouraged IS, ambulation and OOB with meals - obtain CXR - STOP IVF now that she is tolerating PO intake - lasix 20mg IV x1 (FB +11L to date) - continue to follow (7) Hypertension: Plan: Was on routine hydralazine but will resume her HCTZ (tomorrow) and Losartan (today) as she is tolerating oral intake - change hydralazine to prn (8) Depression: Plan: does not take anything for this (9) GERD (gastroesophageal reflux disease): Plan: Patient did have blood seen in NG canister but H&H had remained stable on IV Protonix and Pepcid for GI prophylaxis - H/H dropping (11.8--> 7.7) which I am not convinced is d/t active bleeding and not simply from volume overload (FB +11L) and post-op (EBL only 25 cc) - LAsix today - stop lovenox - continue PPI/H2 krzysztof (change to PO given initiation of PO intake) - iron studies - follow labs closely Admission and Anticipated Discharge Date Admission Date: August 11, 2021 Subjective Patient seen on daily rounds today. Overall "feels great". She has since had her diet advanced to clear liquids and reports "it is the best meal I have ever had". She is tolerating clear liquids. Denies abdominal pain, nausea or vomiting. She is having semiformed BMs and passing significant flatus. She is noted to be spiking low-grade fevers (T-max 100.22). Patient admits to using her incentive spirometer but not often. Her white blood cell count is up trending today at 13.64 (was 16.7 upon admission and did improve to 11.8 but now uptrending). Her potassium remains low despite multiple K riders given over the course of the past 48 hours. Review of Systems Review of Systems: All systems reviewed and are unremarkable except as noted in HPI and below Denies fevers, chills, headache, nasal congestion, sore throat, cough, chest pain, shortness of breath, palpitations, orthopnea, PND, abdominal pain, nausea, vomiting, diarrhea, constipation, dysuria, hematuria, frequency, back pain, joint pain or swelling, easy bruising or bleeding, skin lesions or rashes. Physical Exam Physical Exam: General: Resting comfortably in her hospital bed. She does not appear ill or toxic. NAD. HEENT: Head is AT/NC buccal mucosa is moist and pink Neck: No JVD. Negative hepatojugular reflex Cardiac: RRR with 2/6 VERONICA Lungs: Speaking full sentences on supplemental oxygen. Bibasilar crackles Abdomen: Abdominal binder in place. Normoactive BS X4. Soft and nontender in all quadrants. Extremities: Trace pitting edema of the bilateral upper and lower extremities Neuro: A&O X4 cranial nerves II through XII are grossly intact no focal neuro deficits Skin: No obvious skin lesions or rashes Psych: Appropriate affect pleasant and cooperative Results & Data Results & Data ([facility]) Vital Signs (Past 12 Hours) Vital Signs Temp Pulse Pulse Pulse Resp BP BP 08/16/21 07:45 38.4 C H 87 14 132/58 L 08/16/21 07:36 37.0 C 89 20 119/61 08/16/21 07:00 92 H 08/16/21 04:58 86 124/71 08/15/21 23:59 90 08/15/21 23:19 36.4 C L 81 16 116/62 Pulse Ox 08/16/21 07:45 95 08/16/21 07:36 90 08/16/21 07:00 08/16/21 04:58 95 08/15/21 23:59 08/15/21 23:19 93 PG Care Time/CCT Total # of Minutes Spent Total Time Spent with Patient: Total time spent is greater than 50% in coordination of care (as documented) at patient's floor/unit and/or counseling patient: Coding Level of Care Code 17373 Subseq Hosp Care Lvl 3 Diagnoses Large bowel obstruction K56.609 Colonic mass K63.89 Hypokalemia E87.6 Hypertension I10 Hypertension type: essential hypertension Depression F33.1 Active/Remission status: currently active Depression Type: major depressive disorder Major depression episode severity: moderate Major depression recurrence: recurrent GERD (gastroesophageal reflux disease) K21.9 Leukocytosis D72.829 Low grade fever R50.9 Hypoxemia R09.02 (1) Depression Active/Remission status: currently active Depression Type: major depressive disorder Major depression episode severity: moderate Major depression recurrence: recurrent Qualified Code(s): F33.1 - Major depressive disorder, recurrent, moderate (2) Hypertension Hypertension type: essential hypertension Qualified Code(s): I10 - Essential (primary) hypertension
[2021-08-16] MEDS ORDERED: hydrALAZINE HCL 20 MG/ML VIAL IV PRN (10:55)
--- NOTE | 2021-08-16 11:02 | XRay Report ---
XR chest 1V portable CLINICAL HISTORY: hypoxemia. COMPARISON STUDY: 08/11/2021 TECHNIQUE: 1 view of the chest FINDINGS: Single frontal view of the chest demonstrates heart size to again be enlarged. Compared to previous e xamination, there has been interval development of mild diffuse interstitial edema characteristic of cardiac decompensation and mild pulmonary edema. The lungs are clear of alveolar opacities. There is decreased inspiration with bibasilar atelectasis also present. There is haziness at the left lung bas e suspicious for small left pleural effusion. There is no evidence for right pleural effusion. There is no acute osseous pathology. IMPRESSION: Interval development of mild diffuse interstitial edema characteristic of cardiac decompe nsation a mild pulmonary edema. There is also bibasilar atelectasis and suspicion of small left pleur al effusion. ACT 112: Negative or not required by law. Electronically signed by: Clint Beasley M.D. 08/16/2021 11:01 AM
[2021-08-16 11:26] LABS: Ferritin 51.2 ng/ml (8-388)
[2021-08-16] MEDS: POTASSIUM CHLORIDE 20 MEQ/15 ML UDC PO SCH ×3 (11:59→22:08)
[2021-08-16] MEDS: LOSARTAN POTASSIUM 25 MG TAB PO SCH (11:59)
[2021-08-16] MEDS: PANTOprazole 40 MG TAB PO SCH (21:07)
[2021-08-16] MEDS: FAMOTIDINE 20 MG TAB PO SCH (21:07)
[2021-08-16] MEDS ORDERED: ACETAMINOPHEN 10MG/ML PEDIATRIC DOSING IV PRN (22:55)
[2021-08-16] MEDS ORDERED: ACETAMINOPHEN 1,000 MG/100 ML VIAL IV PRN (23:00)
[2021-08-16 23:39] LABS: Appearance Urine Clear (Clear); Bacteria Urine Automated Negative (Negative); Bilirubin Urine Negative (Negative); Blood Urine Negative (Negative); Color Urine Yellow; Epithelial Cell Urine Auto >30 /lpf (0-5); Glucose Urine UA 1+ (Negative); Ketones Urine Trace (Negative); Leukocyte Esterase Urine 1+ (Negative); Nitrite Urine Negative (Negative); Protein Urine 2+ (Negative); RBC Urine Automated 0-4 /hpf (0-4); Urobilinogen Urine Negative (Negative); WBC Urine Automated >30 /hpf (0-5)
[2021-08-16 23:58] LABS: Cast Urine Automated 0 /lpf (0-5)
[2021-08-16 23:59] LABS: Mucus Urine Present (None Prsent)
[2021-08-17 08:18] LABS: Basophils # (auto) 0.02 K/uL (0-0.2); Basophils % (auto) 0.2 %; Eosinophils # (auto) 0.45 K/uL (0-0.5); Eosinophils % (auto) 3.8 %; Hematocrit (blood only) 28.4 % (37-47); Hemoglobin 8.3 g/dL (12.0-16.0); Immature Granulocytes # (auto) 0.07 K/uL (0.00-0.02); Immature Granulocytes % (auto) 0.6 %; Lymphocytes # (auto) 0.94 K/uL (1.2-3.4); Lymphocytes % (auto) 7.9 %; Mean Corpuscular Hemoglobin 23.7 pg (25-34); Mean Corpuscular Hgb Conc 29.2 g/dL (32-36); Mean Corpuscular Volume 81.1 fL (80-100); Mean Platelet Volume 8.4 fL (7.4-10.4); Monocytes # (auto) 0.85 K/uL (0.11-0.59); Monocytes % (auto) 7.1 %; Neutrophils # (auto) 9.62 K/uL (1.4-6.5); Neutrophils % (auto) 80.4 %; Platelet Count 316 K/uL (130-400); RDW Coefficient of Variation 15.3 % (11.5-14.5); RDW Standard Deviation 44.9 fL (36.4-46.3); White Blood Count 11.95 K/uL (4.8-10.8)
[2021-08-17] MEDS: INSULIN ASPART 100 UNITS/ML 3 ML PEN SC SCH ×4 (08:18→21:01)
[2021-08-17] MEDS: hydroCHLOROthiazide 25 MG TAB PO SCH (08:19)
[2021-08-17] MEDS: INSULIN GLARGINE SOLOSTAR 100 UNITS/ML 3 ML PEN SC SCH ×2 (08:19→21:03)
[2021-08-17] MEDS: PANTOprazole 40 MG TAB PO SCH ×2 (08:19→21:05)
[2021-08-17] MEDS: LOSARTAN POTASSIUM 25 MG TAB PO SCH (08:19)
[2021-08-17] MEDS: FAMOTIDINE 20 MG TAB PO SCH ×2 (08:20→21:05)
[2021-08-17 08:35] LABS: BUN Creatinine Ratio 10.9 (10-20); Calcium 8.5 mg/dl (8.5-10.1); Creatinine Clr Calc Pharmacy 127.7 ml/min; Est GFR (African American) 124.4 ml/min; Est GFR (Non-African American) 107.4 ml/min; Potassium 3.5 mmol/L (3.5-5.1)
--- NOTE | 2021-08-17 10:01 | Surgery Progress Note ---
Date of Service August 17, 2021 Assessment & Plan Admission and Anticipated Discharge Date Admission Date: August 11, 2021 Supervising Physician Co-Signing Physician Notes I personally saw and evaluated the patient with Latanya Lynne PA-C and agree with the assessment and plan 61 yo female POD#2 Ex lap, R hemicolectomy, partial omentectomy for LBO -Start clears -Dressing removed, dry gauze dressing PRN -She had a low grade fever, if continues would higgins culture, CXR shows some atelectasis and fluid overload -DVT prophylaxis -Encourage ambulation/IS 08/17/2021 9:59AM F/U S/P Open Exploratory Laparotomy, Right Hemicolectomy, Partial Omentectomy POD 3 pt is doing fine, OOB, tolerated clear diet, keep clear diet today, continue treatment, will F/U Subjective Patient seen on daily rounds today. Overall "feels great". She has since had her diet advanced to clear liquids and reports "it is the best meal I have ever had". She is tolerating clear liquids. Denies abdominal pain, nausea or vomiting. She is having semiformed BMs and passing significant flatus. She is noted to be spiking low-grade fevers (T-max 100.22). Patient admits to using her incentive spirometer but not often. Her white blood cell count is up trending today at 13.64 (was 16.7 upon admission and did improve to 11.8 but now uptrending). Her potassium remains low despite multiple K riders given over the course of the past 48 hours. 08/17/2021 9:55AM Dr. Blum F/U S/P Open Exploratory Laparotomy, Right Hemicolectomy, Partial Omentectomy POD 3 pt is doing fine, passed BM, no significant abdominal pain, no fever, tolerated clear diet, Physical Exam Constitutional: WD/WN, vitals as above Eyes: PERRL, conjunctivae normal, anicteric sclerae Neck: trachea midline, no thyromegaly Respiratory: normal respiratory effort, lungs clear to auscultation Cardiovascular: RRR, no murmur, no edema Gastrointestinal (Abdomen): soft, mild tenderness at incision site, no rebound, no distend, the incision intact, no redness, Musculoskeletal: no cyanosis or clubbing, extremities motor strength 5/5 Neurologic: patellar DTR's 2+ bilat, sensation intact Psychiatric: A+Ox3, euthymic affect Results & Data ([facility]) Vital Signs (Past 12 Hours) Vital Signs Temp Pulse Pulse Pulse Resp BP BP 08/17/21 08:59 73 08/17/21 07:56 36.7 C 80 18 132/80 08/17/21 04:49 36.7 C 73 18 138/74 08/16/21 23:46 86 08/16/21 23:08 37.4 C 68 18 134/71 Pulse Ox 08/17/21 08:59 08/17/21 07:56 98 08/17/21 04:49 98 08/16/21 23:46 08/16/21 23:08 96 Laboratory Results Abnormal lab results 08/16/21 08/16/21 08/16/21 Range/Units 07:53 11:24 11:58 WBC (4.8-10.8) K/uL RBC (4.2-5.4) M/uL Hgb (12.0-16.0) g/dL Hct (37-47) % MCH (25-34) pg MCHC (32-36) g/dL RDW Coeff of Alison (11.5-14.5) % Neut # (Auto) (1.4-6.5) K/uL Lymph # (Auto) (1.2-3.4) K/uL [place] # (Auto) (0.11-0.59) K/uL Immature Gran # (Auto) (0.00-0.02) K/uL BUN (7-18) mg/dl Creatinine (0.6-1.2) mg/dl Glucose (70-99) mg/dl POC Glucose 224 H (70-99) mg/dl Iron 12 L (35-150) mcg/dl TIBC 200 L (250-450) mcg/dl Transferrin 156 L (200-360) mg/dl Urine Protein (Negative) Urine Glucose (UA) (Negative) Urine Ketones (Negative) Ur Leukocyte Esterase (Negative) Urine WBC (Auto) (0-5) /hpf U Epithel Cells (Auto) (0-5) /lpf Urine Mucus (None Prsent) Stool Occult Bld Scrn Positive A (Negative) 08/16/21 08/16/21 08/16/21 Range/Units 13:50 16:51 19:59 WBC (4.8-10.8) K/uL RBC (4.2-5.4) M/uL Hgb 8.0 L (12.0-16.0) g/dL Hct 26.0 L (37-47) % MCH (25-34) pg MCHC (32-36) g/dL RDW Coeff of Alison (11.5-14.5) % Neut # (Auto) (1.4-6.5) K/uL Lymph # (Auto) (1.2-3.4) K/uL [place] # (Auto) (0.11-0.59) K/uL Immature Gran # (Auto) (0.00-0.02) K/uL BUN (7-18) mg/dl Creatinine (0.6-1.2) mg/dl Glucose (70-99) mg/dl POC Glucose 162 H 201 H (70-99) mg/dl Iron (35-150) mcg/dl TIBC (250-450) mcg/dl Transferrin (200-360) mg/dl Urine Protein (Negative) Urine Glucose (UA) (Negative) Urine Ketones (Negative) Ur Leukocyte Esterase (Negative) Urine WBC (Auto) (0-5) /hpf U Epithel Cells (Auto) (0-5) /lpf Urine Mucus (None Prsent) Stool Occult Bld Scrn (Negative) 08/16/21 08/17/21 08/17/21 Range/Units 23:20 07:53 07:54 WBC 11.95 H (4.8-10.8) K/uL RBC 3.50 L (4.2-5.4) M/uL Hgb 8.3 L (12.0-16.0) g/dL Hct 28.4 L (37-47) % MCH 23.7 L (25-34) pg MCHC 29.2 L (32-36) g/dL RDW Coeff of Alison 15.3 H (11.5-14.5) % Neut # (Auto) 9.62 H (1.4-6.5) K/uL Lymph # (Auto) 0.94 L (1.2-3.4) K/uL [place] # (Auto) 0.85 H (0.11-0.59) K/uL Immature Gran # (Auto) 0.07 H (0.00-0.02) K/uL BUN (7-18) mg/dl Creatinine (0.6-1.2) mg/dl Glucose (70-99) mg/dl POC Glucose 190 H (70-99) mg/dl Iron (35-150) mcg/dl TIBC (250-450) mcg/dl Transferrin (200-360) mg/dl Urine Protein 2+ H (Negative) Urine Glucose (UA) 1+ H (Negative) Urine Ketones Trace H (Negative) Ur Leukocyte Esterase 1+ H (Negative) Urine WBC (Auto) >30 H (0-5) /hpf U Epithel Cells (Auto) >30 H (0-5) /lpf Urine Mucus Present A (None Prsent) Stool Occult Bld Scrn (Negative) 08/17/21 Range/Units 07:54 WBC (4.8-10.8) K/uL RBC (4.2-5.4) M/uL Hgb (12.0-16.0) g/dL Hct (37-47) % MCH (25-34) pg MCHC (32-36) g/dL RDW Coeff of Alison (11.5-14.5) % Neut # (Auto) (1.4-6.5) K/uL Lymph # (Auto) (1.2-3.4) K/uL [place] # (Auto) (0.11-0.59) K/uL Immature Gran # (Auto) (0.00-0.02) K/uL BUN 5 L (7-18) mg/dl Creatinine 0.47 L (0.6-1.2) mg/dl Glucose 178 H (70-99) mg/dl POC Glucose (70-99) mg/dl Iron (35-150) mcg/dl TIBC (250-450) mcg/dl Transferrin (200-360) mg/dl Urine Protein (Negative) Urine Glucose (UA) (Negative) Urine Ketones (Negative) Ur Leukocyte Esterase (Negative) Urine WBC (Auto) (0-5) /hpf U Epithel Cells (Auto) (0-5) /lpf Urine Mucus (None Prsent) Stool Occult Bld Scrn (Negative)
[2021-08-17] MEDS ORDERED: FUROSEMIDE INJ 20 MG/2 ML VIAL IV ONE (11:43)
[2021-08-17] MEDS ORDERED: POTASSIUM CHLORIDE 20 MEQ/15 ML UDC PO STA (11:43)
[2021-08-17] MEDS ORDERED: traMADol HCL 50 MG TABLET PO PRN (12:01)
[2021-08-17] MEDS ORDERED: HYDROmorphone INJ 0.5 MG/0.5 ML SYR IV PRN (12:01)
[2021-08-17] MEDS: ACETAMINOPHEN 500 MG TAB PO PRN (12:05)
--- NOTE | 2021-08-17 15:02 | XRay Report ---
XR KUB/Abdomen 1 view CLINICAL HISTORY: post diuresis. Status post abdominal surgery. COMPARISON STUDY: 08/12/2021 TECHNIQUE: Single view of the abdomen. FINDINGS: Compared to the previous examination, skin katina are present vertically up and down the a bdomen from interval abdominal surgery. The bowel gas pattern is within normal limits without evidence for dilatation or obstruction. Previou sly identified fecal stasis on the right is no longer seen. There is no evidence for organomegaly or gross intra-abdominal mass. No abnormal calcifications are seen along the course of the urinary tract s bilaterally. No acute osseous pathology. IMPRESSION: 1.Status post interval abdominal surgery with no evidence for bowel dilatation or retained fecal mate rial. ACT 112: Negative or not required by law. Electronically signed by: Clint Beasley M.D. 08/17/2021 3:00 PM
--- NOTE | 2021-08-17 18:12 | Hospitalist Progress Note ---
Date of Service August 17, 2021 Assessment & Plan (1) Large bowel obstruction: Plan: Admitted 08/11 with abdominal pain and found to have large bowel obstruction with associated leukocytosis (16K) CT of the abdomen and pelvis showed questionable colonic lesion and mass could not be ruled out Patient was placed empirically on antibiotic therapy (due to associated leukocytosis of 16,000 and risk for infectious process) and NGT advanced LIS Patient had really no clinical response GI and general surgery consulted Patient had Fleet enema in preparation for colonoscopy Colonoscopy performed on 08/13 showing large and nearly obstructing mass in the ascending colon with associated moderate to severe colonic ischemia. s/p right hemicolectomy and omentectomy with end-to-end anastomoses on 08/14. No perioperative complications Per report, no obvious source of metastatic process that can be seen via exploratory laparotomy or CT scan; however, patient will need referred to oncology once pathology available for staging CEA level drawn: 4.5 - WBC has normalized and abx stopped (as was thought to be reactive from ischemic bowel)--> 08/16 WBC uptrending (see below) evening of 08/14--> NGT removed (per general surgery) - 08/15- started on ICE chips/popsicle and has since been advanced to clear liquids (for which she is tolerating Patient denies abdominal pain, nausea or vomiting. Still passing flatus and BMs. General surgery would like her to keep her diet at clear liquids today. Titration of diet at discretion of general surgery (2) Colonic mass: Plan: pathology reports confirms adenocarcinoma S/p partial colon resection. We will need referred to oncology which can be done as an outpatient (needs staging) (3) Hypokalemia: Plan: Replaced and resolved. Added supplementation today given extra dose of Lasix being given (4) Leukocytosis: Plan: -Was noted upfront (16,000) which was likely due to ischemic bowel Was elevated postoperatively which was likely reactive White blood cell count normal today (5) Low grade fever: Plan: -Urinalysis was not grossly infected Admitted that she was not compliant with the incentive spirometer I suspect low-grade fever was likely due to compressive atelectasis as she has since defervesced with persistent compliance with incentive spirometer (6) Hypoxemia: Plan: -Fluid balance was +13L to date Improved with subsequent doses of Lasix CXR did show volume overload No longer requiring supplemental oxygen but still with mild bibasilar crackles. One additional dose of Lasix today We will follow closely (7) Hypertension: Plan: HCTZ and losartan have since been resumed with initiation of oral intake - change hydralazine from scheduled to prn (8) Depression: Plan: does not take anything for this (9) GERD (gastroesophageal reflux disease): Plan: Patient did have blood seen in NG canister but H&H had remained stable on IV Protonix and Pepcid for GI prophylaxis - H/H dropping (11.8--> 7.7) which is likely more related to dilutional drop rather than active bleed as it does not appear that the patient is actively exsanguinating -Additional IV Lasix -Lovenox stopped - continue PPI/H2 krzysztof (change to PO given initiation of PO intake) - iron studies ordered. Iron low at 12/ TIBC 200. Will give Venofer IV X 3 days -Staff had ordered a fecal occult blood but will be positive knowing that she had blood in the NG canister the other day (which could have just been irritation from the NGT) Admission and Anticipated Discharge Date Admission Date: August 11, 2021 Subjective Patient seen on daily rounds today. "Feels great". White count normal. Has not had any further fever spikes. No longer requiring supplemental oxygen. Tolerating clear liquids (actually would like something more substantial but seen by general surgery today who would like her to remain on clear liquids today). Still having flatus and moving her bowels. Denies any abdominal pain, nausea or vomiting. Review of Systems Review of Systems: All systems reviewed and are unremarkable except as noted in HPI and below Denies fevers, chills, headache, nasal congestion, sore throat, cough, chest pain, shortness of breath, palpitations, orthopnea, PND, abdominal pain, nausea, vomiting, diarrhea, constipation, dysuria, hematuria, frequency, back pain, joint pain or swelling, easy bruising or bleeding, skin lesions or rashes. Physical Exam Physical Exam: General: Resting comfortably in her hospital bed. No acute distress HEENT: Head is AT/NC buccal mucosa is moist and pink Neck: No JVD. Negative hepatojugular reflex Cardiac: RRR 2/6 VERONICA Lungs: CTA without W/R/R Abdomen: Abdominal binder in place. Normoactive X4. Soft and tender at the incision site but otherwise nontender Extremities: No peripheral clubbing cyanosis or edema Neuro: A&O X4 cranial nerves II through XII are grossly intact no focal neuro deficits Skin: No obvious skin lesions or rashes Psych: Appropriate affect pleasant and cooperative Results & Data Results & Data ([facility]) Vital Signs (Past 12 Hours) Vital Signs Temp Pulse Pulse Pulse Resp BP BP 08/17/21 15:29 37.1 C 92 H 18 156/91 H 08/17/21 15:25 37.1 C 92 H 18 156/91 H 08/17/21 12:00 36.7 C 82 18 124/78 08/17/21 08:59 73 08/17/21 07:56 36.7 C 80 18 132/80 Pulse Ox 08/17/21 15:29 95 08/17/21 15:25 95 08/17/21 12:00 08/17/21 08:59 08/17/21 07:56 98 Laboratory Results 08/17/21 07:54 08/17/21 07:54 PG Care Time/CCT Total # of Minutes Spent Total Time Spent with Patient: Total time spent is greater than 50% in coordination of care (as documented) at patient's floor/unit and/or counseling patient: Coding Level of Care Code 34973 Subseq Hosp Care Lvl 3 Diagnoses Large bowel obstruction K56.609 Colonic mass K63.89 Hypokalemia E87.6 Leukocytosis D72.829 Low grade fever R50.9 Hypoxemia R09.02 Hypertension I10 Hypertension type: essential hypertension Depression F33.1 Depression Type: major depressive disorder Major depression recurrence: recurrent Active/Remission status: currently active Major depression episode severity: moderate GERD (gastroesophageal reflux disease) K21.9 (1) Hypertension Hypertension type: essential hypertension Qualified Code(s): I10 - Essential (primary) hypertension (2) Depression Depression Type: major depressive disorder Major depression recurrence: recurrent Active/Remission status: currently active Major depression episode severity: moderate Qualified Code(s): F33.1 - Major depressive disorder, recurrent, moderate
[2021-08-17] MEDS: IRON SUCROSE 300 MG in SODIUM CHLORIDE 0.9% 250 ML IV SCH (19:13)
[2021-08-18] MEDS: ACETAMINOPHEN 500 MG TAB PO PRN ×2 (02:56→08:42)
[2021-08-18 08:23] LABS: Hematocrit (blood only) 30.7 % (37-47); Hemoglobin 9.1 g/dL (12.0-16.0); Mean Corpuscular Hemoglobin 23.8 pg (25-34); Mean Corpuscular Hgb Conc 29.6 g/dL (32-36); Mean Corpuscular Volume 80.2 fL (80-100); Mean Platelet Volume 8.7 fL (7.4-10.4); Nucleated RBC # (auto) 0.07 K/uL (0-0); Nucleated RBC % (auto) 0.6 %; Platelet Count 357 K/uL (130-400); RDW Coefficient of Variation 15.2 % (11.5-14.5); RDW Standard Deviation 44.8 fL (36.4-46.3); Red Blood Count 3.83 M/uL (4.2-5.4); White Blood Count 11.38 K/uL (4.8-10.8)
[2021-08-18] MEDS: FAMOTIDINE 20 MG TAB PO SCH ×2 (08:38→20:27)
[2021-08-18 08:39] LABS: BUN Creatinine Ratio 11.6 (10-20); Creatinine Clr Calc Pharmacy 107.2 ml/min; Est GFR (African American) 117.5 ml/min; Est GFR (Non-African American) 101.3 ml/min; Potassium 3.8 mmol/L (3.5-5.1)
[2021-08-18] MEDS: hydroCHLOROthiazide 25 MG TAB PO SCH (08:39)
[2021-08-18] MEDS: PANTOprazole 40 MG TAB PO SCH ×2 (08:39→20:28)
[2021-08-18] MEDS: LOSARTAN POTASSIUM 25 MG TAB PO SCH (08:39)
[2021-08-18] MEDS: INSULIN GLARGINE SOLOSTAR 100 UNITS/ML 3 ML PEN SC SCH ×2 (08:39→20:28)
[2021-08-18] MEDS: INSULIN ASPART 100 UNITS/ML 3 ML PEN SC SCH ×4 (08:41→20:28)
[2021-08-18] MEDS: IRON SUCROSE 300 MG in SODIUM CHLORIDE 0.9% 250 ML IV SCH (08:49)
[2021-08-18 08:50] LABS: Basophils # (auto) 0.03 K/uL (0-0.2); Basophils % (auto) 0.3 %; Eosinophils # (auto) 0.52 K/uL (0-0.5); Eosinophils % (auto) 4.6 %; Immature Granulocytes % (auto) 0.9 %; Lymphocytes % (auto) 12.3 %; Monocytes # (auto) 0.85 K/uL (0.11-0.59); Monocytes % (auto) 7.5 %; Neutrophils # (auto) 8.48 K/uL (1.4-6.5); Neutrophils % (auto) 74.4 %
--- NOTE | 2021-08-18 16:53 | Surgery Progress Note ---
Date of Service August 18, 2021 Assessment & Plan Admission and Anticipated Discharge Date Admission Date: August 11, 2021 Supervising Physician Co-Signing Physician Notes I personally saw and evaluated the patient with Latanya Lynne PA-C and agree with the assessment and plan 61 yo female POD#2 Ex lap, R hemicolectomy, partial omentectomy for LBO -Start clears -Dressing removed, dry gauze dressing PRN -She had a low grade fever, if continues would higgins culture, CXR shows some atelectasis and fluid overload -DVT prophylaxis -Encourage ambulation/IS 08/17/2021 9:59AM F/U S/P Open Exploratory Laparotomy, Right Hemicolectomy, Partial Omentectomy POD 3 pt is doing fine, OOB, tolerated clear diet, keep clear diet today, continue treatment, will F/U 08/18/2021 4:52PM F/U S/P Open Exploratory Laparotomy, Right Hemicolectomy, Partial Omentectomy POD 4 pt is doing fine, OOB, tolerated clear diet, start soft food. may D/C home tomorrow, Subjective Patient seen on daily rounds today. "Feels great". White count normal. Has not had any further fever spikes. No longer requiring supplemental oxygen. Tolerating clear liquids (actually would like something more substantial but seen by general surgery today who would like her to remain on clear liquids today). Still having flatus and moving her bowels. Denies any abdominal pain, nausea or vomiting. 08/18/2021 4:50PM doing fine, tolerated clear diet, no nausea, no vomiting, no fever. Physical Exam Constitutional: WD/WN, vitals as above Eyes: PERRL, conjunctivae normal, anicteric sclerae Neck: trachea midline, no thyromegaly Respiratory: normal respiratory effort, lungs clear to auscultation Cardiovascular: RRR, no murmur, no edema Gastrointestinal (Abdomen): soft, NT, ND, incision intact, no redness, BS + Musculoskeletal: no cyanosis or clubbing, extremities motor strength 5/5 Neurologic: patellar DTR's 2+ bilat, sensation intact Psychiatric: A+Ox3, euthymic affect Results & Data ([facility]) Vital Signs (Past 12 Hours) Vital Signs Temp Pulse Pulse Resp BP BP Pulse Ox 08/18/21 16:00 36.9 C 80 18 123/72 98 08/18/21 12:07 36.7 C 82 18 132/76 98 08/18/21 07:34 36.6 C 79 18 140/70 96 Laboratory Results Abnormal lab results 08/17/21 08/18/21 08/18/21 Range/Units 19:56 07:31 08:09 WBC 11.38 H (4.8-10.8) K/uL RBC 3.83 L (4.2-5.4) M/uL Hgb 9.1 L (12.0-16.0) g/dL Hct 30.7 L (37-47) % MCH 23.8 L (25-34) pg MCHC 29.6 L (32-36) g/dL RDW Coeff of Alison 15.2 H (11.5-14.5) % Neut # (Auto) 8.48 H (1.4-6.5) K/uL [place] # (Auto) 0.85 H (0.11-0.59) K/uL Eos # (Auto) 0.52 H (0-0.5) K/uL Immature Gran # (Auto) 0.10 H (0.00-0.02) K/uL Absolute Nucleated RBC 0.07 H (0-0) K/uL Creatinine (0.6-1.2) mg/dl Glucose (70-99) mg/dl POC Glucose 139 H 144 H (70-99) mg/dl 08/18/21 08/18/21 08/18/21 Range/Units 08:09 11:50 16:48 WBC (4.8-10.8) K/uL RBC (4.2-5.4) M/uL Hgb (12.0-16.0) g/dL Hct (37-47) % MCH (25-34) pg MCHC (32-36) g/dL RDW Coeff of Alison (11.5-14.5) % Neut # (Auto) (1.4-6.5) K/uL [place] # (Auto) (0.11-0.59) K/uL Eos # (Auto) (0-0.5) K/uL Immature Gran # (Auto) (0.00-0.02) K/uL Absolute Nucleated RBC (0-0) K/uL Creatinine 0.56 L (0.6-1.2) mg/dl Glucose 170 H (70-99) mg/dl POC Glucose 165 H 134 H (70-99) mg/dl
--- NOTE | 2021-08-18 17:34 | Hospitalist Progress Note ---
Date of Service August 18, 2021 Assessment & Plan (1) Large bowel obstruction: Plan: Admitted 08/11 with abdominal pain and found to have large bowel obstruction with associated leukocytosis (16K) CT of the abdomen and pelvis showed questionable colonic lesion and mass could not be ruled out Patient was placed empirically on antibiotic therapy (due to associated leukocytosis of 16,000 and risk for infectious process) and NGT advanced LIS Patient had really no clinical response GI and general surgery consulted Patient had Fleet enema in preparation for colonoscopy Colonoscopy performed on 08/13 showing large and nearly obstructing mass in the ascending colon with associated moderate to severe colonic ischemia. s/p right hemicolectomy and omentectomy with end-to-end anastomoses on 08/14. No perioperative complications Per report, no obvious source of metastatic process that can be seen via exploratory laparotomy or CT scan; however, patient will need referred to oncology once pathology available for staging CEA level drawn: 4.5 - WBC has normalized and abx stopped (as was thought to be reactive from ischemic bowel)--> 08/16 WBC uptrending (see below) evening of 08/14--> NGT removed (per general surgery) - 08/15- started on ICE chips/popsicle and has since been advanced to clear liquids (for which she is tolerating) Patient denies abdominal pain, nausea or vomiting. Still passing flatus and BMs. Did get the blessing of general surgery to advance diet further to full liquid Patient can likely be discharged tomorrow pending she still showing favorable response (2) Colonic mass: Plan: pathology reports confirms adenocarcinoma S/p partial colon resection. We will need referred to oncology which can be done as an outpatient (needs staging) (3) Hypokalemia: Plan: Replaced and resolved. (4) Leukocytosis: Plan: -Was noted upfront (16,000) which was likely due to ischemic bowel Was then again elevated postoperatively which was likely reactive White blood cell count normal today without intervention (5) Low grade fever: Plan: -Urinalysis was not grossly infected and CXR showing volume overload with compressive atelectasis Admitted that she was not compliant with the incentive spirometer Has since abated with aggressive use of incentive spirometer (6) Hypoxemia: Plan: -Fluid balance was +13L when seen postoperatively Improved with subsequent doses of Lasix CXR did show volume overload No longer requiring supplemental oxygen Compressive atelectasis was also likely contributing (7) Hypertension: Plan: HCTZ and losartan have since been resumed with initiation of oral intake - change hydralazine from scheduled to prn (8) Depression: Plan: does not take anything for this (9) GERD (gastroesophageal reflux disease): Plan: Patient did have blood seen in NG canister but H&H had remained stable - H/H dropping (11.8--> 7.7) which is likely more related to dilutional drop rather than active bleed as it does not appear that the patient is actively exsanguinating -Lovenox stopped - continue PPI/H2 krzysztof (change to PO given initiation of PO intake) - iron studies ordered. Iron low at 12/ TIBC 200. Venofer IV X 3 days - H/H uptrended with diuresis Plan: Pending patient continues to respond favorably and tolerate diet advancement, can likely be discharged to home tomorrow. Will need oncology established as an outpatient Admission and Anticipated Discharge Date Admission Date: August 11, 2021 Subjective Patient seen on daily rounds today. Vocalizes no significant complaints or concerns. Tolerating clear liquids. Denies abdominal pain, nausea or vomiting. Still passing flatus and having BMs. Overall, she has not had any further fever spikes and her white blood cell count has remained normal. H&H improved with diuresis. Feels well and verbalizes no complaints or concerns. Review of Systems Review of Systems: All systems reviewed and are unremarkable except as noted in HPI and below Denies fevers, chills, headache, nasal congestion, sore throat, cough, chest pain, shortness of breath, palpitations, orthopnea, PND, abdominal pain, nausea, vomiting, diarrhea, constipation, dysuria, hematuria, frequency, back pain, joint pain or swelling, easy bruising or bleeding, skin lesions or rashes. Physical Exam Physical Exam: General: Resting comfortably in her bedside chair. Pleasant and in no acute distress HEENT: Head is AT/NC buccal mucosa is moist and pink Neck: No JVD. Negative hepatojugular reflex Cardiac: RRR with 2/6 VERONICA (known murmur) Lungs: CTA without W/R/R Abdomen: Normoactive X4. Soft. Subtle tenderness at the incision but otherwise no tenderness in all quadrants Extremities: No peripheral clubbing cyanosis or edema Neuro: A&O X4 cranial nerves II through XII are grossly intact no focal neuro deficits Skin: No obvious skin lesions or rashes Psych: Appropriate affect pleasant and cooperative Results & Data Results & Data ([facility]) Vital Signs (Past 12 Hours) Vital Signs Temp Pulse Pulse Resp BP BP Pulse Ox 08/18/21 16:00 36.9 C 80 18 123/72 98 08/18/21 12:07 36.7 C 82 18 132/76 98 08/18/21 07:34 36.6 C 79 18 140/70 96 Laboratory Results 08/18/21 08:09 08/18/21 08:09 PG Care Time/CCT Total # of Minutes Spent Total Time Spent with Patient: Total time spent is greater than 50% in coordination of care (as documented) at patient's floor/unit and/or counseling patient: Coding Level of Care Code 01910 Subseq Hosp Care Lvl 2 Diagnoses Large bowel obstruction K56.609 Colonic mass K63.89 Hypokalemia E87.6 Leukocytosis D72.829 Low grade fever R50.9 Hypoxemia R09.02 Hypertension I10 Hypertension type: essential hypertension Depression F33.1 Depression Type: major depressive disorder Major depression recurrence: recurrent Active/Remission status: currently active Major depression episode severity: moderate GERD (gastroesophageal reflux disease) K21.9 (1) Hypertension Hypertension type: essential hypertension Qualified Code(s): I10 - Essential (primary) hypertension (2) Depression Depression Type: major depressive disorder Major depression recurrence: recurrent Active/Remission status: currently active Major depression episode s everity: moderate Qualified Code(s): F33.1 - Major depressive disorder, recurrent, moderate
[2021-08-19] MEDS: ACETAMINOPHEN 500 MG TAB PO PRN ×2 (00:31→20:15)
[2021-08-19 05:50] LABS: Hematocrit (blood only) 29.1 % (37-47); Hemoglobin 8.8 g/dL (12.0-16.0); Mean Corpuscular Hemoglobin 24.2 pg (25-34); Mean Corpuscular Hgb Conc 30.2 g/dL (32-36); Mean Corpuscular Volume 80.2 fL (80-100); Mean Platelet Volume 8.5 fL (7.4-10.4); Nucleated RBC # (auto) 0.05 K/uL (0-0); Nucleated RBC % (auto) 0.4 %; Platelet Count 312 K/uL (130-400); RDW Coefficient of Variation 15.2 % (11.5-14.5); RDW Standard Deviation 44.6 fL (36.4-46.3); Red Blood Count 3.63 M/uL (4.2-5.4); White Blood Count 11.57 K/uL (4.8-10.8)
[2021-08-19 06:14] LABS: Basophils # (auto) 0.04 K/uL (0-0.2); Basophils % (auto) 0.3 %; Eosinophils # (auto) 0.47 K/uL (0-0.5); Eosinophils % (auto) 4.1 %; Immature Granulocytes # (auto) 0.28 K/uL (0.00-0.02); Immature Granulocytes % (auto) 2.4 %; Lymphocytes # (auto) 1.58 K/uL (1.2-3.4); Lymphocytes % (auto) 13.7 %; Monocytes # (auto) 1.08 K/uL (0.11-0.59); Monocytes % (auto) 9.3 %; Neutrophils # (auto) 8.12 K/uL (1.4-6.5); Neutrophils % (auto) 70.2 %; RBC Morphology Unremarkable
[2021-08-19 06:25] LABS: BUN Creatinine Ratio 9.2 (10-20); Calcium 8.5 mg/dl (8.5-10.1); Creatinine Clr Calc Pharmacy 103.5 ml/min; Est GFR (African American) 116.1 ml/min; Est GFR (Non-African American) 100.2 ml/min; Potassium 2.8 mmol/L (3.5-5.1)
--- NOTE | 2021-08-19 08:05 | Surgery Progress Note ---
Date of Service August 19, 2021 Assessment & Plan (1) Colonic mass: Plan: POD#5 exlap, R hemicolectomy for colonic mass low fiber diet may shower replace K+ per medicine home today or tomorrow Admission and Anticipated Discharge Date Admission Date: August 11, 2021 Supervising Physician Co-Signing Physician Notes I personally saw and evaluated the patient with Brayden Chiu PA-C and agree with the assessment and plan 61 yo female POD#5 Ex lap, R hemicolectomy, partial omentectomy for LBO -Continue low fiber diet, doing well -Hypokalemic, being replaced -Ok to discharge from surgical standpoint once K+ is improved -DVT prophylaxis -Encourage ambulation/IS -Will follow Subjective bowels moving, Tylenol for pain Physical Exam Gastrointestinal (Abdomen): Inspection/Auscultation: + abdominal surgical incision (no erythema); abdomen not distended Results & Data ([facility]) Vital Signs (Past 12 Hours) Vital Signs Temp Pulse Resp BP Pulse Ox 08/18/ 22:13 36.9 C 86 18 147/71 H 97 PG Care Time/CCT Total # of Minutes Spent Total Time Spent with Patient: Total time spent is greater than 50% in coordination of care (as documented) at patient's floor/unit and/or counseling patient: Coding Level of Care Code None Diagnoses Colonic mass K63.89
[2021-08-19] MEDS: INSULIN GLARGINE SOLOSTAR 100 UNITS/ML 3 ML PEN SC SCH ×2 (08:22→21:39)
[2021-08-19] MEDS: LOSARTAN POTASSIUM 25 MG TAB PO SCH (08:22)
[2021-08-19] MEDS: hydroCHLOROthiazide 25 MG TAB PO SCH (08:22)
[2021-08-19] MEDS: IRON SUCROSE 300 MG in SODIUM CHLORIDE 0.9% 250 ML IV SCH (08:25)
[2021-08-19] MEDS: FAMOTIDINE 20 MG TAB PO SCH ×2 (08:25→20:16)
[2021-08-19] MEDS: INSULIN ASPART 100 UNITS/ML 3 ML PEN SC SCH ×4 (08:30→21:39)
[2021-08-19] MEDS: PANTOprazole 40 MG TAB PO SCH ×2 (09:10→20:16)
[2021-08-19] MEDS: POTASSIUM CHLORIDE / WTR 10 MEQ/100 ML PLCT IV SCH ×4 (11:23→15:03)
[2021-08-19] MEDS: POTASSIUM CHLORIDE CRTAB 20 MEQ TABCR PO SCH (20:16)
--- NOTE | 2021-08-19 21:10 | Hospitalist Progress Note ---
Date of Service August 19, 2021 Assessment & Plan (1) Large bowel obstruction: Plan: Admitted 08/11 with abdominal pain and found to have large bowel obstruction with associated leukocytosis (16K) CT of the abdomen and pelvis showed questionable colonic lesion and mass could not be ruled out Patient was placed empirically on antibiotic therapy (due to associated leukocytosis of 16,000 and risk for infectious process) and NGT advanced LIS Patient had really no clinical response GI and general surgery consulted Patient had Fleet enema in preparation for colonoscopy Colonoscopy performed on 08/13 showing large and nearly obstructing mass in the ascending colon with associated moderate to severe colonic ischemia. s/p right hemicolectomy and omentectomy with end-to-end anastomoses on 08/14. No perioperative complications Per report, no obvious source of metastatic process that can be seen via exploratory laparotomy or CT scan; however, patient will need referred to oncology once pathology available for staging CEA level drawn: 4.5 - WBC has normalized and abx stopped (as was thought to be reactive from ischemic bowel)--> 08/16 WBC uptrending (see below) evening of 08/14--> NGT removed (per general surgery) - 08/15- started on ICE chips/popsicle and has since been advanced to clear liquids (for which she is tolerating) Patient denies abdominal pain, nausea or vomiting. Still passing flatus and BMs. Did get the blessing of general surgery to advance diet further to full liquid Patient can likely be discharged tomorrow pending she still showing favorable response (2) Colonic mass: Plan: pathology reports confirms adenocarcinoma S/p partial colon resection. We will need referred to oncology which can be done as an outpatient (needs staging) (3) Hypokalemia: Plan: Replaced and resolved. (4) Leukocytosis: Plan: -Was noted upfront (16,000) which was likely due to ischemic bowel Was then again elevated postoperatively which was likely reactive White blood cell count normal today without intervention Due to electrolyte imbalance, potassium replenished. (5) Low grade fever: Plan: -Urinalysis was not grossly infected and CXR showing volume overload with compressive atelectasis Admitted that she was not compliant with the incentive spirometer Has since abated with aggressive use of incentive spirometer (6) Hypoxemia: Plan: -Fluid balance was +13L when seen postoperatively Improved with subsequent doses of Lasix CXR did show volume overload No longer requiring supplemental oxygen Compressive atelectasis was also likely contributing (7) Hypertension: Plan: HCTZ and losartan have since been resumed with initiation of oral intake - change hydralazine from scheduled to prn (8) Depression: Plan: does not take anything for this (9) GERD (gastroesophageal reflux disease): Plan: Patient did have blood seen in NG canister but H&H had remained stable - H/H dropping (11.8--> 7.7) which is likely more related to dilutional drop rather than active bleed as it does not appear that the patient is actively exsanguinating -Lovenox stopped - continue PPI/H2 krzysztof (change to PO given initiation of PO intake) - iron studies ordered. Iron low at 12/ TIBC 200. Venofer IV X 3 days - H/H uptrended with diuresis Plan: Pending patient continues to respond favorably and tolerate diet advancement, can likely be discharged to home tomorrow. Will need oncology established as an outpatient Admission and Anticipated Discharge Date Admission Date: August 11, 2021 Subjective Patient reports no new symptoms Review of Systems Review of Systems: All systems reviewed & are unremarkable except as noted in HPI & below Physical Exam Physical Exam: General: Resting comfortably in her bedside chair. Pleasant and in no acute distress HEENT: Head is AT/NC buccal mucosa is moist and pink Neck: No JVD. Negative hepatojugular reflex Cardiac: RRR with 2/6 VERONICA (known murmur) Lungs: CTA without W/R/R Abdomen: Normoactive X4. Soft. Subtle tenderness at the incision but otherwise no tenderness in all quadrants Extremities: No peripheral clubbing cyanosis or edema Neuro: A&O X4 cranial nerves II through XII are grossly intact no focal neuro deficits Skin: No obvious skin lesions or rashes Psych: Appropriate affect pleasant and cooperative Results & Data Results & Data ([facility]) Vital Signs (Past 12 Hours) Vital Signs Temp Pulse Resp BP BP Pulse Ox 08/19/21 16:20 37.1 C 85 16 129/76 96 08/19/21 10:23 83 138/82 98 PG Care Time/CCT Total # of Minutes Spent Total Time Spent with Patient: Total time spent is greater than 50% in coordination of care (as documented) at patient's floor/unit and/or counseling patient: Coding Level of Care Code 48938 Subseq Hosp Care Lvl 2 Diagnoses Large bowel obstruction K56.609 Colonic mass K63.89 Hypokalemia E87.6 Leukocytosis D72.829 Low grade fever R50.9 Hypoxemia R09.02 Hypertension I10 Hypertension type: essential hypertension Depression F33.1 Depression Type: major depressive disorder Major depression recurrence: recurrent Active/Remission status: currently active Major depression episode severity: moderate GERD (gastroesophageal reflux disease) K21.9 Time Spent (min) 25 (1) Hypertension Hypertension type: essential hypertension Qualified Code(s): I10 - Essential (primary) hypertension (2) Depression Depression Type: major depressive disorder Major depression recurrence: recurrent Active/Remission status: currently active Major depression episode severity: moderate Qualified Code(s): F33.1 - Major depressive disorder, recurrent, moderate
--- NOTE | 2021-08-20 07:34 | Surgery Progress Note ---
Date of Service August 20, 2021 Assessment & Plan (1) Colonic mass: Plan: POD#6 exlap, R hemicolectomy for colonic mass Patient doing well. + bowel function. tolerating diet Obtain labs today to check electrolytes...if K is okay we are fine with patient discharging to home today Will need follow up with Dr. Tamayo, plan for katina to be removed in the office around POD#14 Admission and Anticipated Discharge Date Admission Date: August 11, 2021 Supervising Physician Co-Signing Physician Notes I personally saw and evaluated the patient with Latanya Lynne PA-C and agree with the assessment and plan 61 yo female POD#6 Ex lap, R hemicolectomy, partial omentectomy for LBO -Continue low fiber diet, doing well -Hypokalemic, being replaced, check magnesium -Ok to discharge from surgical standpoint -DVT prophylaxis -Encourage ambulation/IS -Will follow Subjective Patient is feeling well. Denies abdominal pain, nausea/vomiting. She is tolerating a low fiber diet. Passing flatus and BM's. Physical Exam Physical Exam: awake/alert Gastrointestinal (Abdomen): Inspection/Auscultation: + abdominal surgical incision (c/d/i with midline katina); abdomen not distended Percussion/Palpation: abdomen soft; abdomen nontender Results & Data ([facility]) Vital Signs (Past 12 Hours) Vital Signs Temp Pulse Resp BP BP Pulse Ox 08/20/21 07:06 37.2 C 74 18 137/77 94 08/19/21 22:40 36.9 C 72 16 115/62 93 PG Care Time/CCT Total # of Minutes Spent Total Time Spent with Patient: Total time spent is greater than 50% in coordination of care (as documented) at patient's floor/unit and/or counseling patient: Coding Level of Care Code None Diagnoses Colonic mass K63.89
[2021-08-20 08:00] LABS: Basophils # (auto) 0.04 K/uL (0-0.2); Basophils % (auto) 0.3 %; Eosinophils # (auto) 0.49 K/uL (0-0.5); Eosinophils % (auto) 3.6 %; Hematocrit (blood only) 28.3 % (37-47); Hemoglobin 8.6 g/dL (12.0-16.0); Immature Granulocytes # (auto) 0.22 K/uL (0.00-0.02); Immature Granulocytes % (auto) 1.6 %; Lymphocytes % (auto) 10.4 %; Mean Corpuscular Hemoglobin 24.4 pg (25-34); Mean Corpuscular Hgb Conc 30.4 g/dL (32-36); Mean Corpuscular Volume 80.4 fL (80-100); Mean Platelet Volume 8.5 fL (7.4-10.4); Monocytes # (auto) 1.17 K/uL (0.11-0.59); Monocytes % (auto) 8.7 %; Neutrophils # (auto) 10.17 K/uL (1.4-6.5); Neutrophils % (auto) 75.4 %; Nucleated RBC # (auto) 0.06 K/uL (0-0); Nucleated RBC % (auto) 0.4 %; Platelet Count 321 K/uL (130-400); RDW Coefficient of Variation 15.7 % (11.5-14.5); Red Blood Count 3.52 M/uL (4.2-5.4); White Blood Count 13.49 K/uL (4.8-10.8)
[2021-08-20 08:24] LABS: Calcium 8.3 mg/dl (8.5-10.1); Creatinine Clr Calc Pharmacy 107.2 ml/min; Est GFR (African American) 117.5 ml/min; Est GFR (Non-African American) 101.3 ml/min; Potassium 2.9 mmol/L (3.5-5.1)
[2021-08-20] MEDS: POTASSIUM CHLORIDE CRTAB 20 MEQ TABCR PO SCH ×2 (08:50→20:30)
[2021-08-20] MEDS: PANTOprazole 40 MG TAB PO SCH ×2 (08:50→20:30)
[2021-08-20] MEDS: LOSARTAN POTASSIUM 25 MG TAB PO SCH (08:50)
[2021-08-20] MEDS: hydroCHLOROthiazide 25 MG TAB PO SCH (08:51)
[2021-08-20] MEDS: INSULIN GLARGINE SOLOSTAR 100 UNITS/ML 3 ML PEN SC SCH ×2 (08:52→20:33)
[2021-08-20] MEDS: INSULIN ASPART 100 UNITS/ML 3 ML PEN SC SCH ×4 (08:53→20:33)
[2021-08-20] MEDS: IRON SUCROSE 300 MG in SODIUM CHLORIDE 0.9% 250 ML IV SCH (08:56)
[2021-08-20] MEDS: FAMOTIDINE 20 MG TAB PO SCH ×2 (09:03→20:39)
[2021-08-20] MEDS: POTASSIUM CHLORIDE / WTR 10 MEQ/100 ML PLCT IV SCH ×7 (10:39→23:28)
--- NOTE | 2021-08-20 14:07 | XRay Report ---
KUB HISTORY: Abdominal distention. Postop. COMPARISON: KUB 08/17/2021. FINDINGS: Midline skin katina are again noted. No dilated loops of bowel identified. Prior cholecyst ectomy. Suture material within the right side of the abdomen again noted. Mild scoliosis and degenera tive changes within the lumbar spine. No renal calculi. No ureteral calculi. Calcifications in the d eep pelvis likely represent phleboliths. No pneumoperitoneum or pneumatosis. IMPRESSION: Recent postoperative changes again noted with no evidence for bowel obstruction or ileus. ACT 112: Negative or not required by law. Electronically signed by: Sai Urbina M.D. 08/20/2021 2:06 PM
[2021-08-20] MEDS ORDERED: COUGH DROP (SUGAR FREE) LOZ 24 LOZ/1 BOX BUCCAL PRN (20:32)
--- NOTE | 2021-08-20 20:40 | Hospitalist Progress Note ---
Date of Service August 20, 2021 Assessment & Plan (1) Large bowel obstruction: Plan: Admitted 08/11 with abdominal pain and found to have large bowel obstruction with associated leukocytosis (16K) CT of the abdomen and pelvis showed questionable colonic lesion and mass could not be ruled out Patient was placed empirically on antibiotic therapy (due to associated leukocytosis of 16,000 and risk for infectious process) and NGT advanced LIS Patient had really no clinical response GI and general surgery consulted Patient had Fleet enema in preparation for colonoscopy Colonoscopy performed on 08/13 showing large and nearly obstructing mass in the ascending colon with associated moderate to severe colonic ischemia. s/p right hemicolectomy and omentectomy with end-to-end anastomoses on 08/14. No perioperative complications Per report, no obvious source of metastatic process that can be seen via exploratory laparotomy or CT scan; however, patient will need referred to oncology once pathology available for staging CEA level drawn: 4.5 - WBC has normalized and abx stopped (as was thought to be reactive from ischemic bowel)--> 08/16 WBC uptrending (see below) evening of 08/14--> NGT removed (per general surgery) - 08/15- started on ICE chips/popsicle and has since been advanced to clear liquids (for which she is tolerating) Patient denies abdominal pain, nausea or vomiting. Still passing flatus and BMs. Did get the blessing of general surgery to advance diet further to full liquid Patient can likely be discharged tomorrow pending she still showing favorable response. Reason discharge was held is that patient remains hypokalemic. will replenish potassium will recheck in M. (2) Colonic mass: Plan: pathology reports confirms adenocarcinoma S/p partial colon resection. We will need referred to oncology which can be done as an outpatient (needs staging) (3) Hypokalemia: Plan: Replaced and resolved. (4) Leukocytosis: Plan: -Was noted upfront (16,000) which was likely due to ischemic bowel Was then again elevated postoperatively which was likely reactive White blood cell count ELEVATED, will recheck in AM. Due to electrolyte imbalance, potassium replenished. (5) Low grade fever: Plan: -Urinalysis was not grossly infected and CXR showing volume overload with compressive atelectasis Admitted that she was not compliant with the incentive spirometer Has since abated with aggressive use of incentive spirometer (6) Hypoxemia: Plan: -Fluid balance was +13L when seen postoperatively Improved with subsequent doses of Lasix CXR did show volume overload No longer requiring supplemental oxygen Compressive atelectasis was also likely contributing (7) Hypertension: Plan: HCTZ and losartan have since been resumed with initiation of oral intake - change hydralazine from scheduled to prn (8) Depression: Plan: does not take anything for this (9) GERD (gastroesophageal reflux disease): Plan: Patient did have blood seen in NG canister but H&H had remained stable - H/H dropping (11.8--> 7.7) which is likely more related to dilutional drop rather than active bleed as it does not appear that the patient is actively exsanguinating -Lovenox stopped - continue PPI/H2 krzysztof (change to PO given initiation of PO intake) - iron studies ordered. Iron low at 12/ TIBC 200. Venofer IV X 3 days - H/H uptrended with diuresis Plan: Pending patient continues to respond favorably and tolerate diet advancement, can likely be discharged to home tomorrow. Will need oncology established as an outpatient Admission and Anticipated Discharge Date Admission Date: August 11, 2021 Subjective Patient reports no new symptoms Review of Systems Review of Systems: All systems reviewed & are unremarkable except as noted in HPI & below Physical Exam 2 Physical Exam: General: Resting comfortably in her bedside chair. Pleasant and in no acute distress HEENT: Head is AT/NC buccal mucosa is moist and pink Neck: No JVD. Negative hepatojugular reflex Cardiac: RRR with 2/6 VERONICA (known murmur) Lungs: CTA without W/R/R Abdomen: Normoactive X4. Soft. Subtle tenderness at the incision but otherwise no tenderness in all quadrants Extremities: No peripheral clubbing cyanosis or edema Neuro: A&O X4 cranial nerves II through XII are grossly intact no focal neuro deficits Skin: No obvious skin lesions or rashes Psych: Appropriate affect pleasant and cooperative Results & Data Results & Data ([facility]) Vital Signs (Past 12 Hours) Vital Signs Temp Pulse Resp BP Pulse Ox 08/20/21 15:59 37.3 C 79 18 127/68 95 PG Care Time/CCT Total # of Minutes Spent Total Time Spent with Patient: Total time spent is greater than 50% in coordination of care (as documented) at patient's floor/unit and/or counseling patient: Coding Level of Care Code 68662 Subseq Hosp Care Lvl 3 Diagnoses Large bowel obstruction K56.609 Colonic mass K63.89 Hypokalemia E87.6 Leukocytosis D72.829 Low grade fever R50.9 Hypoxemia R09.02 Hypertension I10 Hypertension type: essential hypertension Depression F33.1 Depression Type: major depressive disorder Major depression recurrence: recurrent Active/Remission status: currently active Major depression episode severity: moderate GERD (gastroesophageal reflux disease) K21.9 (1) Hypertension Hypertension type: essential hypertension Qualified Code(s): I10 - Essential (primary) hypertension (2) Depression Depression Type: major depressive disorder Major depression recurrence: recurrent Active/Remission status: currently active Major depression episode severity: moderate Qualified Code(s): F33.1 - Major depressive disorder, recurrent, moderate
[2021-08-21] MEDS: POTASSIUM CHLORIDE / WTR 10 MEQ/100 ML PLCT IV SCH ×8 (00:31→23:52)
[2021-08-21 06:26] LABS: Basophils # (auto) 0.05 K/uL (0-0.2); Basophils % (auto) 0.3 %; Eosinophils # (auto) 0.47 K/uL (0-0.5); Eosinophils % (auto) 3.1 %; Hematocrit (blood only) 29.7 % (37-47); Hemoglobin 8.9 g/dL (12.0-16.0); Immature Granulocytes # (auto) 0.49 K/uL (0.00-0.02); Immature Granulocytes % (auto) 3.2 %; Lymphocytes % (auto) 10.4 %; Mean Corpuscular Hemoglobin 24.5 pg (25-34); Mean Corpuscular Volume 81.8 fL (80-100); Mean Platelet Volume 8.5 fL (7.4-10.4); Monocytes # (auto) 1.06 K/uL (0.11-0.59); Monocytes % (auto) 6.9 %; Neutrophils # (auto) 11.69 K/uL (1.4-6.5); Neutrophils % (auto) 76.1 %; Nucleated RBC # (auto) 0.06 K/uL (0-0); Nucleated RBC % (auto) 0.4 %; Platelet Count 321 K/uL (130-400); RDW Coefficient of Variation 15.9 % (11.5-14.5); RDW Standard Deviation 46.4 fL (36.4-46.3); Red Blood Count 3.63 M/uL (4.2-5.4); White Blood Count 15.36 K/uL (4.8-10.8)
[2021-08-21 07:09] LABS: Albumin Level 2.2 gm/dl (3.4-5.0); BUN Creatinine Ratio 6.7 (10-20); Est GFR (African American) 109.7 ml/min; Est GFR (Non-African American) 94.6 ml/min; Potassium 3.5 mmol/L (3.5-5.1)
[2021-08-21 07:12] LABS: Albumin Globulin Ratio 0.5 (0.9-2); Bilirubin,Total 0.5 mg/dl (0.2-1); Globulin 4.7 gm/dl (2.5-4.0); Total Protein 6.9 gm/dl (6.4-8.2)
--- NOTE | 2021-08-21 08:35 | Surgery Progress Note ---
Date of Service August 21, 2021 Assessment & Plan (1) Large bowel obstruction: Plan: POD#7 exlap, R hemicolectomy for colonic mass Patient continues to feel well. No pain/n/v. Tolerating a diet. Has return of bowel function WBC 15 today. She is afebrile and VSS. Incision has some erythema of inferior portion. No drainage. Will send out on a 7 day course of Keflex and continue to monitor Potassium improved today (3.5) We are okay with discharge to home when okay with medical service. Will ask pt to follow up in clinic with Dr. Tamayo next week. Will have katian removed at that time Admission and Anticipated Discharge Date Admission Date: August 11, 2021 Subjective Patient reports feeling well. No abdominal pain, nausea/vomiting. Tolerating low fiber diet. Passing gas/BMs. Took a shower this AM and feels well. Physical Exam Physical Exam: awake/alert Gastrointestinal (Abdomen): Inspection/Auscultation: + abdominal surgical incision (c/d/i, some erythema around inferior portion of incision. no drainage); abdomen not distended Percussion/Palpation: abdomen soft; abdomen nontender Results & Data ([facility]) Vital Signs (Past 12 Hours) Vital Signs Temp Pulse Resp BP Pulse Ox 08/21/21 07:10 37.0 C 77 18 145/75 H 96 08/20/21 21:24 36.8 C 88 16 140/72 96 PG Care Time/CCT Total # of Minutes Spent Total Time Spent with Patient: Total time spent is greater than 50% in coordination of care (as documented) at patient's floor/unit and/or counseling patient: Coding Level of Care Code None Diagnoses Large bowel obstruction K56.609
[2021-08-21] MEDS: LOSARTAN POTASSIUM 25 MG TAB PO SCH (08:48)
[2021-08-21] MEDS: PANTOprazole 40 MG TAB PO SCH ×2 (08:48→20:23)
[2021-08-21] MEDS: POTASSIUM CHLORIDE CRTAB 20 MEQ TABCR PO SCH ×2 (08:48→20:23)
[2021-08-21] MEDS: INSULIN GLARGINE SOLOSTAR 100 UNITS/ML 3 ML PEN SC SCH ×2 (08:49→20:27)
[2021-08-21] MEDS: hydroCHLOROthiazide 25 MG TAB PO SCH (08:49)
[2021-08-21] MEDS: INSULIN ASPART 100 UNITS/ML 3 ML PEN SC SCH ×4 (08:51→20:28)
[2021-08-21] MEDS: FAMOTIDINE 20 MG TAB PO SCH ×2 (08:53→20:28)
[2021-08-21 10:25] LABS: D Dimer 3440 ug/L FEU (0-500)
--- NOTE | 2021-08-21 19:24 | Hospitalist Progress Note ---
Date of Service August 21, 2021 Assessment & Plan (1) Large bowel obstruction: Plan: Admitted 08/11 with abdominal pain and found to have large bowel obstruction with associated leukocytosis (16K) CT of the abdomen and pelvis showed questionable colonic lesion and mass could not be ruled out Patient was placed empirically on antibiotic therapy (due to associated leukocytosis of 16,000 and risk for infectious process) and NGT advanced LIS Patient had really no clinical response GI and general surgery consulted Patient had Fleet enema in preparation for colonoscopy Colonoscopy performed on 08/13 showing large and nearly obstructing mass in the ascending colon with associated moderate to severe colonic ischemia. s/p right hemicolectomy and omentectomy with end-to-end anastomoses on 08/14. No perioperative complications Per report, no obvious source of metastatic process that can be seen via exploratory laparotomy or CT scan; however, patient will need referred to oncology once pathology available for staging CEA level drawn: 4.5 - WBC has normalized and abx stopped (as was thought to be reactive from ischemic bowel)--> 08/16 WBC uptrending (see below) evening of 08/14--> NGT removed (per general surgery) - 08/15- started on ICE chips/popsicle and has since been advanced to clear liquids (for which she is tolerating) Patient denies abdominal pain, nausea or vomiting. Still passing flatus and BMs. Did get the blessing of general surgery to advance diet further to full liquid Patient can likely be discharged tomorrow pending she still showing favorable response. Reason discharge was held is that patient remains hypokalemic. will replenish potassium will recheck in M. (2) Colonic mass: Plan: pathology reports confirms adenocarcinoma S/p partial colon resection. We will need referred to oncology which can be done as an outpatient (needs staging) (3) Hypokalemia: Plan: Replaced and resolved. (4) Leukocytosis: Plan: -Was noted upfront (16,000) which was likely due to ischemic bowel Was then again elevated postoperatively which was likely reactive White blood cell count ELEVATED, will recheck inflmammatory markers and will check FOR C DIFF iF NEGATIVE, WILL ORDER CT SCAN Due to electrolyte imbalance, potassium replenished. (5) Low grade fever: Plan: -Urinalysis was not grossly infected and CXR showing volume overload with compressive atelectasis Admitted that she was not compliant with the incentive spirometer Has since abated with aggressive use of incentive spirometer (6) Hypoxemia: Plan: -Fluid balance was +13L when seen postoperatively Improved with subsequent doses of Lasix CXR did show volume overload No longer requiring supplemental oxygen Compressive atelectasis was also likely contributing (7) Hypertension: Plan: HCTZ and losartan have since been resumed with initiation of oral intake - change hydralazine from scheduled to prn (8) Depression: Plan: does not take anything for this (9) GERD (gastroesophageal reflux disease): Plan: Patient did have blood seen in NG canister but H&H had remained stable - H/H dropping (11.8--> 7.7) which is likely more related to dilutional drop rather than active bleed as it does not appear that the patient is actively exsanguinating -Lovenox stopped - continue PPI/H2 krzysztof (change to PO given initiation of PO intake) - iron studies ordered. Iron low at 12/ TIBC 200. Venofer IV X 3 days - H/H uptrended with diuresis Plan: Pending patient continues to respond favorably and tolerate diet advancement, can likely be discharged to home tomorrow. Will need oncology established as an outpatient Admission and Anticipated Discharge Date Admission Date: August 11, 2021 Subjective 61 yo female reports no new symptoms. She actually feels better today than she did yesterday. She has no new complaints. She reports multiple BM's yesterday but this morning she has had 2 BMs. Review of Systems Review of Systems: All systems reviewed & are unremarkable except as noted in HPI & below Physical Exam Physical Exam: General: Resting comfortably in her bedside chair. P leasant and in no acute distress YESI NT: Head is AT/NC buccal mucosa is m oist and pink Neck : No JVD. Negativ e hepatojugular re flex Cardiac: RRR with 2/6 VERONICA (know n murmur) Lungs: C TA without W/R/R A bdomen: Normoactiv e X4. Soft. Subt le tenderness at t he incision but ot herwise no tendern ess in all quadran ts Extremities: No peripheral clubbi ng cyanosis or carmelo ma Neuro: A&O X4 c ranial nerves II t hrough XII are stephanie ssly intact no foc al neuro deficits Skin: No obvious s kin lesions or yang hes Psych: Appropr iate affect pleasa nt and cooperative Results & Data Results & Data ([facility]) Vital Signs (Past 12 Hours) Vital Signs Temp Pulse Resp BP Pulse Ox 08/21/21 15:44 36.8 C 79 18 129/71 96 PG Care Time/CCT Total # of Minutes Spent Total Time Spent with Patient: Total time spent is greater than 50% in coordination of care (as documented) at patient's floor/unit and/or counseling patient: Coding Level of Care Code 98940 Subseq Hosp Care Lvl 3 Diagnoses Large bowel obstruction K56.609 Colonic mass K63.89 Hypokalemia E87.6 Leukocytosis D72.829 Low grade fever R50.9 Hypoxemia R09.02 Hypertension I10 Hypertension type: essential hypertension Depression F33.1 Depression Type: major depressive disorder Major depression recurrence: recurrent Active/Remission status: currently active Major depression episode severity: moderate GERD (gastroesophageal reflux disease) K21.9 Time Spent (min) 35 (1) Hypertension Hypertension type: essential hypertension Qualified Code(s): I10 - Essential (primary) hypertension (2) Depression Depression Type: major depressive disorder Major depression recurrence: recurrent Active/Remission status: currently active Major depression episode severity: moderate Qualified Code(s): F33.1 - Major depressive disorder, recurrent, moderate
[2021-08-21 19:51] LABS: Hematocrit (blood only) 25.3 % (37-47); Hemoglobin 7.6 g/dL (12.0-16.0); Mean Corpuscular Hemoglobin 24.5 pg (25-34); Mean Corpuscular Volume 81.6 fL (80-100); Mean Platelet Volume 8.6 fL (7.4-10.4); Platelet Count 320 K/uL (130-400); RDW Standard Deviation 47.3 fL (36.4-46.3)
[2021-08-21 20:06] LABS: Calcium 8.2 mg/dl (8.5-10.1); Creatinine Clr Calc Pharmacy 71.4 ml/min; Est GFR (African American) 87.6 ml/min; Est GFR (Non-African American) 75.5 ml/min; Potassium 3.6 mmol/L (3.5-5.1)
[2021-08-21] MEDS ORDERED: OPTIRAY 320 100ml IV ONE (20:35)
[2021-08-21 20:42] LABS: ALC (manual) 1.29 K/uL (1.2-3.4); ANC (manual) 13.78 K/uL (1.4-6.5); Anisocytosis Present; Basophils # (manual) 0.15 K/uL (0-0.2); Basophils % (manual) 0.9 %; Eosinophils # (manual) 0.71 K/uL (0-0.5); Eosinophils % (manual) 4.3 %; Lymphocytes # (manual) 1.29 K/uL (1.2-3.4); Lymphocytes % (manual) 7.8 %; Metamyelocytes # (manual) 0.15 K/uL (0-0); Metamyelocytes % (manual) 0.9 %; Monocytes # (manual) 0.28 K/uL (0.11-0.59); Monocytes % (manual) 1.7 %; Myelocytes # (manual) 0.15 K/uL (0-0); Myelocytes % (manual) 0.9 %; Neutrophils # (manual) 13.78 K/uL (1.4-6.5); Neutrophils % (manual) 83.5 %; Ovalocytes 1+; Polychromasia 1+
[2021-08-21] MEDS: ACETAMINOPHEN 500 MG TAB PO PRN (20:51)
[2021-08-21] MEDS ORDERED: cephALEXin 500 MG CAP PO SCH (21:00)
--- NOTE | 2021-08-21 21:04 | CT Scan Report ---
CT chest diagnostic w con CLINICAL HISTORY: elevated wbc TECHNIQUE: Multidetector row helical CT of the chest was performed. Coronal and sagittal reformations were obtained. Automated dose lowering techniques and/or adjustment according to patient size were u tilized for this exam. Comparison: Comparison is made to CT chest 12/14/2020 FINDINGS: Lungs and pleura: There is a 5 mm nodule at the right lung base. Opacity at the left lung base is see n which may represent atelectasis, aspiration, and/or pneumonia. Heart and pericardium: Cardiomegaly is seen with biatrial enlargement. Vessels: Minimal nonocclusive pulmonary emboli are seen in the right upper, middle and lower lobar ar teries extending into the segmental and subsegmental branches. A segmental pulmonary embolus is also seen in the lingula. Mediastinum and clemente: Unremarkable. Chest wall and lower neck: Unremarkable. Abdomen: For findings below the diaphragm, please refer to CT of the abdomen dated the same. Bones: Degenerative changes in the thoracic spine. IMPRESSION: Multiple nonocclusive lobar, segmental, and subsegmental pulmonary emboli bilaterally, right greater than left. No evidence of right heart strain is seen. ACT 112: Positive. There are findings on this exam that require communication between the performing entity and the patient following Patient Test Result Information Act ([place] Act 112) guidelines. Electronically signed by: Robert Mancilla M.D. 08/21/2021 9:02 PM
--- NOTE | 2021-08-21 21:14 | CT Scan Report ---
CT abd pelvis IV con only CLINICAL HISTORY: elevated WBC , severe inflammatory markers TECHNIQUE: Helical axial images of the abdomen and pelvis were obtained and displayed. Automated dose lowering techniques and/or adjustment according to patient size were utilized for this exam. This e xam was performed with intravenous contrast. COMPARISON: Comparison is made to CT abdomen and pelvis 07/22/[address] abdomen pelvis 08/11/2021 FINDINGS: Lower chest: No acute abnormality Liver: Unremarkable. No focal lesions are seen. Gallbladder and biliary tree: Patient is status post cholecystectomy. No intra- or extrahepatic bilia ry ductal dilation. Pancreas: Unremarkable, no focal lesions. Spleen: Unremarkable. Adrenals: There is a 2 cm left adrenal nodule, unchanged from prior exam. Kidneys and ureters: Subcentimeter hypodensities are too small to characterize. Bladder: Limited evaluation due to underdistention. Reproductive organs: Unremarkable. Bowel: Patient is status post bowel resection. There is minimal thickening of the distal esophagus wh ich may represent esophagitis. No evidence of bowel obstruction. Lymph nodes Retroperitoneal: Unremarkable. Mesenteric: Unremarkable. Pelvic: Unremarkable. Peritoneum: There is a small amount of peritoneal fluid in the right abdomen. Fat stranding is seen p redominantly in the right lower quadrant. Vessels: Atherosclerotic calcifications are seen. Abdominal wall: There is a midline incision with fat stranding and gas. Bones: Degenerative changes in the visualized spine. IMPRESSION: 1. Patient is status post right hemicolectomy. There is fluid, gas, and soft tissue stranding in the subcutaneous tissues adjacent to the suture line. In addition, there is fat stranding and fluid in t he right lower quadrant. Although this may possibly represent postoperative changes, it is concerning for postsurgical infection in this patient with leukocytosis. 2. 2 cm left adrenal nodule is seen which demonstrates greater attenuation than expected for a lipid rich adenoma, however it is stable from 2013 and favored to be benign. ACT 112: Negative or not required by law. Electronically signed by: Robert Mancilla M.D. 08/21/2021 9:13 PM
[2021-08-22 06:24] LABS: Hematocrit (blood only) 26.7 % (37-47); Mean Corpuscular Hemoglobin 24.7 pg (25-34); Mean Corpuscular Volume 82.4 fL (80-100); Mean Platelet Volume 8.6 fL (7.4-10.4); Nucleated RBC # (auto) 0.07 K/uL (0-0); Nucleated RBC % (auto) 0.5 %; Platelet Count 268 K/uL (130-400); RDW Coefficient of Variation 15.9 % (11.5-14.5); RDW Standard Deviation 46.5 fL (36.4-46.3); Red Blood Count 3.24 M/uL (4.2-5.4); White Blood Count 12.78 K/uL (4.8-10.8)
[2021-08-22 07:04] LABS: BUN Creatinine Ratio 11.3 (10-20); Calcium 8.5 mg/dl (8.5-10.1); Creatinine Clr Calc Pharmacy 101.7 ml/min; Est GFR (African American) 115.5 ml/min; Est GFR (Non-African American) 99.6 ml/min; Potassium 4.1 mmol/L (3.5-5.1)
[2021-08-22 07:09] LABS: Ferritin 713.5 ng/ml (8-388)
[2021-08-22] MEDS ORDERED: ENOXAPARIN 1.5 MG/KG SQ SCH (07:30)
[2021-08-22] MEDS ORDERED: ENOXAPARIN 150 MG/ML SYR SQ SCH (07:45)
[2021-08-22] MEDS: POTASSIUM CHLORIDE CRTAB 20 MEQ TABCR PO SCH (09:19)
[2021-08-22] MEDS: LOSARTAN POTASSIUM 25 MG TAB PO SCH (09:19)
[2021-08-22] MEDS: PANTOprazole 40 MG TAB PO SCH (09:19)
[2021-08-22] MEDS: hydroCHLOROthiazide 25 MG TAB PO SCH (09:19)
[2021-08-22] MEDS: INSULIN GLARGINE SOLOSTAR 100 UNITS/ML 3 ML PEN SC SCH (09:30)
[2021-08-22] MEDS: INSULIN ASPART 100 UNITS/ML 3 ML PEN SC SCH (09:34)
--- NOTE | 2021-08-22 09:40 | Discharge Summary ---
Date of Service August 22, 2021 Admission HPI Per Admitting Provider 61yo female with T2DM and HTN presents with the acute onset of right-sided abdominal pain starting at 0330 this am. Has had severe nausea with recurrent emesis since that time. She cannot count how many times she has vomited -- it has been copious. During my assessment she began to vomit bile. The vomiting has persisted despite several doses of anti-emetics. Up until this am she has felt well of late with no issues with constipation, diarrhea or change in bowel habits. Denies melena or BRBPR. Last colonoscopy was in 2010 - minimal diverticular disease, polyp. Repeat advised in 5 years (2015) but she confirms she never had such. She reports that 2 months ago she fell in her yard walking to the shed and traumatized her abdomen. She has had intermittent abdominal discomfort since then but that pain was more in the left abdomen. In light of refractory vomiting NG tube was requested and placed by nursing staff. Principal Diagnosis Large bowel obstruction. Discharge Exam General: Resting comfortably in her bedside chair. Pleasant and in no acute distress HEENT: Head is AT/NC buccal mucosa is moist and pink Neck: No JVD. Negative hepatojugular reflex Cardiac: RRR with 2/6 VERONICA (known murmur) Lungs: CTA without W/R/R Abdomen: Normoactive X4. Soft. Subtle tenderness at the incision but otherwise no tenderness in all quadrants Extremities: No peripheral clubbing cyanosis or edema Neuro: A&O X4 cranial nerves II through XII are grossly intact no focal neuro deficits Skin: No obvious skin lesions or rashes Psych: Appropriate affect pleasant and cooperative Discharge Data Allergies Allergy/AdvReac Type Severity Reaction Status Date / Time No Known Allergies Allergy Unknown Verified 08/11/21 13:42 Consultations 08/11/21 15:38 ED Decision to Admit Stat 08/11/21 16:08 Consult General Surgery Stat 08/11/21 21:19 Consult Gastroenterology Routine Procedures Performed Operation Date: 08/13/21 16:30 Actual Procedures p Colonoscopy Biopsy Cytology - Mike Israel MD Operation Date: 08/14/21 08:20 Actual Procedures p Open Exploratory Laparotomy, Right Hemicolectomy, Partial Omentectomy(Right) - Gavin Tamayo, Ordered Studies 08/11/21 11:15 CT abd pelvis IV con only Stat 08/14/21 08:43 US - OR guided needle placemen Routine 08/21/21 18:29 CT abd pelvis IV con only Routine CT chest diagnostic w con Routine Hospital Course (1) Large bowel obstruction: Admitted 08/11 with abdominal pain and found to have large bowel obstruction with associated leukocytosis (16K) CT of the abdomen and pelvis showed questionable colonic lesion and mass could not be ruled out Patient was placed empirically on antibiotic therapy (due to associated leukocytosis of 16,000 and risk for infectious process) and NGT advanced LIS Patient had really no clinical response GI and general surgery consulted Patient had Fleet enema in preparation for colonoscopy Colonoscopy performed on 08/13 showing large and nearly obstructing mass in the ascending colon with associated moderate to severe colonic ischemia. s/p right hemicolectomy and omentectomy with end-to-end anastomoses on 08/14. No perioperative complications Per report, no obvious source of metastatic process that can be seen via exploratory laparotomy or CT scan; however, patient will need referred to oncology once pathology available for staging CEA level drawn: 4.5 - WBC has normalized and abx stopped (as was thought to be reactive from ischemic bowel)--> 08/16 WBC uptrending (see below) evening of 08/14--> NGT removed (per general surgery) - 08/15- started on ICE chips/popsicle and has since been advanced to clear liquids (for which she is tolerating) Patient denies abdominal pain, nausea or vomiting. Still passing flatus and BMs. Did get the blessing of general surgery to advance diet further to full liquid -Due to rising WBC over past few days, and negative C. Diff. Ct of chest and abdomen was completed with contrast. This showed pulmonary emboli. This P/E is provoked by being hospitalized. Patient will be placed on Xarelto, as her BMI is not over 40 nor is her weight past the limit for xarelto. Patient will be started on xarelto on 08/23, this was explained to patient as she will receive a dose of lovenox 1.5 mg/kg before she leaves. In regards to her CT abd: Patient is status post right hemicolectomy. There is fluid, gas, and soft tissue stranding in the subcutaneous tissues adjacent to the suture line. In addition, there is fat stranding and fluid in the right lower quadrant. Although this may possibly represent postoperative changes, it is concerning for postsurgical infection in this patient with leukocytosis. 2. 2 cm left adrenal nodule is seen which demonstrates greater attenuation than expected for a lipid rich adenoma, however it is stable from 2013 and favored to be benign. Patient's clinical exam was benign. To be on the safe side, patient will be placed on augmentin (7 days) with close followup in [address] Alonso. Lab work will be completed on Thursday and Thursday as well. Instructions were given to patient. In regards to her hypolkaemia, naima remain on BID dosing and will recheck potassium tomorrow (Thursday) and Thursday. (2) Colonic mass: pathology reports confirms adenocarcinoma S/p partial colon resection. We will need referred to oncology which can be done as an outpatient (needs staging) (3) Hypokalemia: Replaced and resolved. will closely monitor. (4) Leukocytosis: -Was noted upfront (16,000) which was likely due to ischemic bowel Was then again elevated postoperatively which was likely reactive White blood cell count ELEVATED, will recheck inflmammatory markers and will check FOR C DIFF iF NEGATIVE, WILL ORDER CT SCAN: findings stated above. Due to electrolyte imbalance, potassium replenished. (5) Low grade fever: -Urinalysis was not grossly infected and CXR showing volume overload with compressive atelectasis Admitted that she was not compliant with the incentive spirometer Has since abated with aggressive use of incentive spirometer (6) Hypoxemia: -Fluid balance was +13L when seen postoperatively Improved with subsequent doses of Lasix CXR did show volume overload No longer requiring supplemental oxygen Compressive atelectasis was also likely contributing (7) Hypertension: HCTZ and losartan have since been resumed with initiation of oral intake - change hydralazine from scheduled to prn (8) Depression: does not take anything for this (9) GERD (gastroesophageal reflux disease): Patient did have blood seen in NG canister but H&H had remained stable - H/H dropping (11.8--> 7.7) which is likely more related to dilutional drop rather than active bleed as it does not appear that the patient is actively exsanguinating -Lovenox stopped - continue PPI/H2 krzysztof (change to PO given initiation of PO intake) - iron studies ordered. Iron low at 12/ TIBC 200. Venofer IV X 3 days - H/H uptrended with diuresis (10) Pulmonary emboli: Pending patient continues to respond favorably and tolerate diet advancement, Will need oncology established as an outpatient Total Time Total Time Spent Total Time Spent (In Minutes): 70 Discharge Plan Discharge Items Patient Disposition: Home - Self-Care Reason For Visit: COLONIC OBSTRUCTION Discharge Diagnosis: right hemicolectomy Activity: Per Instructions section Lifting: No more than 10 pounds Bathing Comment: may shower; no soaking in tubs/pools Exercise/Sports: Wait until after follow-up appointment Driving/Machine Use: no driving while taking narcotics for pain Non-emergency contact: Primary Care Provider Call non-emergency contact if: you have any medication questions, your symptoms worsen, your pain is not controlled, your pain is worsening, your pain is concerning for you, you have a fever, your temperature is above 101.5, your wound has increased redness, your wound has increased drainage and your wound pain has increased Follow-up/Referrals: Basim Quiros III, CRNP [Primary Care Provider] - 08/27/21 9:20 am Gavin Tamayo DO [Physician] - 09/05/21 9:00 am (Please call to schedule follow up in clinic within 1 week) Diet: Low Fiber Addtl Attending Provider Instructions: Your katina will be removed at your follow up appointment You may continue to take Tylenol as needed for pain. Do not exceed more than 3 grams of Acetaminophen within a 24 hour time period. Start your xarelto on 08/23/21 in the AM. Recommend checking your CBC on Thursday. Please come back to the hospital if your pain worsens, have fever, fatigue, bleeding (blood in stool, or dark black stool), will need followup with oncology. Pending Studies at Discharge: Yes Studies:: surgical pathology Stand-Alone Forms: My [employer], Smoking Cessation Medications and DC Order Prescriptions: New amoxicillin-pot clavulanate [Augmentin] 875-125 mg tablet 1 tab PO Q12H Qty: 14 RF: 0 Xarelto 15 mg tablet 15 mg PO BID 21 Days Qty: 42 RF: 0 pantoprazole 40 mg Tablet,Delayed Release (Dr/Ec) 40 mg PO BID Qty: 60 RF: 0 Continued (DME) lancets [OneTouch Delica Lancets] 33 gauge misc See Dose Instructions .ROUTE .MEDSUPPLY Qty: 100 RF: 3 (DME) pen needle, diabetic [BD Ultra-Fine Short Pen Needle] 31 gauge x 5/16" needle See Dose Instructions .ROUTE .MEDSUPPLY Qty: 100 RF: 1 dulaglutide 0.75 mg/0.5 mL pen injector 0.75 mg subcut WK Qty: 2 RF: 5 insulin glargine 100 unit/mL (3 mL) insulin pen See Rx Instructions subcut QPM Qty: 15 RF: 12 (DME) lancets [OneTouch Delica Plus Lancet] 30 gauge misc See Rx Instructions .MEDSUPPLY Qty: 100 RF: 5 (DME) OneTouch Ultra Blue Test Strip Strip See Rx Instructions .MEDSUPPLY Qty: 100 RF: 5 (DME) blood-glucose meter [OneTouch Ultra2 Meter] Misc See Rx Instructions .MEDSUPPLY Qty: 1 RF: 0 aspirin 81 mg tablet,chewable 1 tab PO HS RF: 0 cholecalciferol (vitamin D3) [Vitamin D3] 25 mcg (1,000 unit) Tablet,Chewable 25 mcg PO QAM RF: 0 atorvastatin 10 mg tablet 10 mg PO HS RF: 0 pantoprazole [Protonix] 40 mg tablet,delayed release (DR/EC) 40 mg PO QAM RF: 0 losartan 25 mg tablet 25 mg PO QAM RF: 0 hydrochlorothiazide 25 mg tablet 25 mg PO QAM RF: 0 insulin lispro 100 unit/mL insulin pen See Rx Instructions .ROUTE .COMPLEX RF: 0 Discharge Orders: Discharge Order (Routine); Ordered 08/22/21 Ordered By: Alexandru Gilbert Admission Data Admit Date/Time: 08/11/21 17:18 Attending Provider: Alexandru Gilbert Admit Provider: Idris Duron Primary Care Provider: Basim Quiros III Other Providers: Idris Duron ; Gavin Tamayo ; Kerwin Flood Other Interventions: Discharge Summary Assessment (RN) Last Done: 08/13/21 14:23 Coding Level of Care Code D/C DAY MANAGEMENT >30 MINS Diagnoses Large bowel obstruction K56.609 Colonic mass K63.89 Hypokalemia E87.6 Leukocytosis D72.829 Low grade fever R50.9 Hypoxemia R09.02 Hypertension I10 Hypertension type: essential hypertension Depression F33.1 Depression Type: major depressive disorder Major depression recurrence: recurrent Active/Remission status: currently active Major depression episode severity: moderate GERD (gastroesophageal reflux disease) K21.9 Pulmonary emboli I26.99
[2021-08-22] MEDS: FAMOTIDINE 20 MG TAB PO SCH (10:06)
--- NOTE | 2021-08-22 10:15 | Surgery Progress Note ---
Date of Service August 22, 2021 Assessment & Plan (1) Colonic mass: Plan: -CT images and results reviewed, she doesn't have any obvious signs of anastomotic leak -Her WBC is down, she is afebrile and has no tachycardia -Anticoagulation per medicine for her PE's -Ok to discharge home today on Augmentin if vitals remain stable and she continues to tolerate diet -She will follow up with me on ThursdayAugust 28 for staple removal -She is to call with any worsening abdominal pain, fevers Admission and Anticipated Discharge Date Admission Date: August 11, 2021 Subjective Pt seen and examined. Has some pain on right abdomen she describes as mild. Afebrile. Tolerating diet. Having BM's. Physical Exam Constitutional: WD/WN, vitals as above Gastrointestinal (Abdomen): soft, mild TTP right abdomen, no guarding or rebound Incision with katina, mild erythema at bottom 1/3 of incision, no drainage Results & Data ([facility]) Vital Signs (Past 12 Hours) Vital Signs Temp Pulse Resp BP Pulse Ox 08/22/21 07:39 36.9 C 77 16 142/83 H 95 PG Care Time/CCT Total # of Minutes Spent Total Time Spent with Patient: Total time spent is greater than 50% in coordination of care (as documented) at patient's floor/unit and/or counseling patient: Coding Level of Care Code None Diagnoses Colonic mass K63.89
[2021-08-22] MEDS ORDERED: AMOXICILLIN/CLAVULANATE 875 MG TAB PO SCH (17:00)
== END 2021-08-22 12:18 | disposition home or self-care (01) | DRG 330 ==
LOC: ED 10:54 → SUATTDRO 17:18 → 2W 17:18 → 3E 08-18 21:46